=== PATIENT | male | born 1935 | race Caucasian/White ===

== ENCOUNTER → 2017-10-10 | Outpatient (REF) | payer MEDICARE, SELFPAY | LOC: LAB 09:08 | PROVIDERS: PCP Nurse Practitioner Family; Visit Provider Nurse Practitioner Family | DX: R19.7 Diarrhea, unspecified (principal); R53.83 Other fatigue; E53.8 Deficiency of other specified B group vitamins | CPT/HCPCS: 36415; 80048; 82306; 82607; 85025 ==

== ENCOUNTER → 2017-10-24 | Outpatient (REF) | payer MEDICARE, SELFPAY | LOC: LAB 08:00 | PROVIDERS: PCP Nurse Practitioner Family; Visit Provider Nurse Practitioner Family | DX: K62.5 Hemorrhage of anus and rectum (principal) | CPT/HCPCS: 36415; 80048; 85025; 85651; 86140 ==

== ENCOUNTER 2017-12-14 09:02 | Emergency (ER) | payer MEDICARE, SELFPAY ==
[2017-12-14 09:10] VITALS: BP 149/81; PULSE 95; RESP 20; TEMP 36.9; O2SAT 99
--- NOTE | 2017-12-14 09:15 | ED.HEATRA ---
HPI - Head Injury General Chief complaint: Head Injury Stated complaint: GLF Time Seen by Provider: 12/14/17 09:05 Source: patient and EMS Mode of arrival: EMS Limitations: no limitations History of Present Illness HPI Narrative: Patient is an 82-year-old male presenting with all multiple falls and weakness. He says he did not fall today, [place] says that he did fall today. He has no complaints and no injuries, except for a small abrasion on his left temporal area. No ecchymosis no swelling no laceration. He admits falling a lot yesterday, but has no complaints. He says he just loses his balance. He denies any chest pain shortness of breath dizziness lightheadedness MD Complaint: fall Related Data Home Medications Medication Instructions Recorded Confirmed Lactobacillus acidophilus 2 cap PO BID 12/14/17 12/14/17 [Acidophilus] acetaminophen 2 tab PO Q4H PRN 12/14/17 12/14/17 acetaminophen 500 mg PO QID 12/14/17 12/14/17 ascorbic acid (vitamin C) [Vitamin 500 mg PO BID 12/14/17 12/14/17 C] aspirin 81 mg PO DAILY 12/14/17 12/14/17 cholecalciferol (vitamin D3) 1 tab PO DAILY 12/14/17 12/14/17 [Vitamin D3] cyanocobalamin (vitamin B-12) 1 tab PO DAILY 12/14/17 12/14/17 [Vitamin B-12] diclofenac sodium 1 applic TOPICAL TID 12/14/17 12/14/17 hydrocodone-acetaminophen 0.5 tab PO QAM 12/14/17 12/14/17 loperamide 2 mg PO Q6H PRN 12/14/17 12/14/17 mesalamine 2 tab PO DAILY 12/14/17 12/14/17 metoprolol tartrate 1 tab PO BID 12/14/17 12/14/17 multivitamin 1 tab PO DAILY 12/14/17 12/14/17 ondansetron 4 mg PO Q4H PRN 12/14/17 12/14/17 psyllium seed (sugar) [Reguloid] 1 scoop/day PO DAILY 12/14/17 12/14/17 sertraline 25 mg PO DAILY 12/14/17 12/14/17 sodium chloride [Saline Mist] 1 spray INTRANASAL QID 12/14/17 12/14/17 tamsulosin 0.4 mg PO DAILY 12/14/17 12/14/17 tramadol 50 - 100 mg PO Q6H PRN 12/14/17 12/14/17 Review of Systems Review of Systems All systems reviewed & are unremarkable except as noted in HPI and below Constitutional Reports as per HPI, Reports frequent falls and Denies headache(s) ENT Ears, Nose, Mouth, and Throat: Denies dysphagia and Denies headache(s) Cardiovascular Denies chest pain, Denies chest pain with activity, Denies edema and Denies dyspnea Respiratory Denies cough, Denies dyspnea and Denies stridor Gastrointestinal Gastrointestinal: Denies dysphagia, Denies diarrhea, Denies nausea and Denies vomiting Musculoskeletal Reports system reviewed and no additional complaints, except as docu, Denies back pain and Denies myalgias Neurologic Reports frequent falls and Denies headache(s) PFSH Medical History CHF (congestive heart failure) (Acute) Colon cancer (Acute) Coronary artery disease (Acute) Hyperlipidemia (Acute) Hypertension (Acute) Polymyalgia rheumatica (Acute) Surgical History History of colon resection (Acute) Social History Smoking Status: Former smoker Exam Initial Vital Signs Initial Vital Signs: Vital Signs Temperature 98.4 F 12/14/17 09:10 Pulse Rate 95 H 12/14/17 09:10 Respiratory Rate 20 12/14/17 09:10 Blood Pressure 149/81 H 12/14/17 09:10 Pulse Oximetry 99 12/14/17 09:10 Const General: cooperative and frail appearing [facility] Head: normal to inspection and normocephalic Nose: external nose normal Face and sinus: normal facial exam Neck Neck: normal visual inspection, trachea midline, No lymphadenopathy, No midline deformity and No JVD Lymphatic: No lymphedema Resp Effort & Inspection: normal respiratory effort, able to speak in complete sentences, no respiratory distress and no use of accessory muscles Auscultation: clear to auscultation bilaterally, no rales, no rhonchi and no wheezes Cardio Rate: regular rate Rhythm: regular rhythm Heart Sounds: no click, no gallops, no murmurs and no rubs Pulses: normal peripheral pulses GI Inspection: non-distended Palpation: soft, no hepatosplenomegaly, No guarding, No pulsatile mass and No tender Auscultation: normal bowel sounds Skin General: no rashes or lesions noted, No jaundice and No petechiae Neuro General: alert and awake Cranial Nerves: CN's II-XI intact bilaterally Speech: speech normal Motor: muscle tone normal throughout Extrem General: full ROM, no clubbing, cyanosis or edema, no pedal edema and no calf tenderness Course Orders Ordered: ED Orders 12/14/17 09:17 CT head/brain wo con Stat 12/14/17 09:19 EKG-12 Lead Stat 12/14/17 09:30 Complete Blood Count AUTO DIFF Stat Comprehensive Metabolic Panel Stat Lactate (Lactic Acid) Stat Partial Thromboplastin Time Stat Prothrombin Time INR Stat Vital Signs - 8 hr 12/14/17 09:10 12/14/17 10:56 12/14/17 11:17 Temperature 98.4 F Pulse Rate 95 H 102 H Respiratory Rate 20 14 18 Blood Pressure 149/81 H Blood Pressure [Right Arm] 152/97 H Pulse Oximetry 99 100 96 MDM - Head Injury Lab Data Attestation: I reviewed the patient's lab results. Result diagrams: 12/14/17 09:30 12/14/17 09:30 Lab Results 12/14/17 12/14/17 12/14/17 Range/Units 09:30 09:30 09:30 WBC 13.9 H (4.5-11.0) X10^3/uL RBC 4.10 L (4.5-5.9) X10^6/uL Hgb 12.8 L (13.5-17.5) g/dL Hct 38.5 L (41-53) % MCV 93.9 (80-100) fL MCH 31.3 (26-34) PG MCHC 33.3 (30-36) % RDW 15.0 H (11.6-14.8) % Plt Count 348 (150-400) X10^3/uL Neut % (Auto) 74.4 (50-75) % Lymph % (Auto) 10.1 L (25-40) % [place] % (Auto) 12.2 (3-14) % Eos % (Auto) 2.9 (2-4) % Baso % (Auto) 0.4 (0-2) % Neut # (Auto) 72417 H (2806-8879) /uL PT 12.0 (10.1-12.7) SECONDS INR 1.1 (0.9-1.3) APTT 32 (26.4-36.2) SECONDS Sodium 143 (137-145) mmol/L Potassium 4.1 (3.4-5.1) mmol/L Chloride 106 (98-107) mmol/L Carbon Dioxide 26 (22-32) mmol/L BUN 17 (9-20) mg/dL Creatinine 0.70 (0.66-1.25) mg/dL Estimated GFR > 60.0 (>60) mL/min BUN/Creatinine Ratio 24.3 H (6-22) Glucose 97 (80-110) mg/dL Lactate (0.7-2.1) mmol/L Calcium 8.5 (8.4-10.2) mg/dL Total Bilirubin 0.5 (0.2-1.3) mg/dL AST 14 L (17-59) IU/L ALT 27 (21-72) IU/L Alkaline Phosphatase 115 (38-126) U/L Total Protein 6.2 L (6.3-8.2) g/dL Albumin 2.9 L (3.5-5.0) g/dL Globulin 3.3 (1.7-4.1) g/dL Albumin/Globulin Ratio 0.9 L (1.0-2.8) /15/18 Range/Units 09:30 WBC (4.5-11.0) X10^3/uL RBC (4.5-5.9) X10^6/uL Hgb (13.5-17.5) g/dL Hct (41-53) % MCV (80-100) fL MCH (26-34) PG MCHC (30-36) % RDW (11.6-14.8) % Plt Count (150-400) X10^3/uL Neut % (Auto) (50-75) % Lymph % (Auto) (25-40) % [place] % (Auto) (3-14) % Eos % (Auto) (2-4) % Baso % (Auto) (0-2) % Neut # (Auto) (6888-8080) /uL PT (10.1-12.7) SECONDS INR (0.9-1.3) APTT (26.4-36.2) SECONDS Sodium (137-145) mmol/L Potassium (3.4-5.1) mmol/L Chloride (98-107) mmol/L Carbon Dioxide (22-32) mmol/L BUN (9-20) mg/dL Creatinine (0.66-1.25) mg/dL Estimated GFR (>60) mL/min BUN/Creatinine Ratio (6-22) Glucose (80-110) mg/dL Lactate 1.2 (0.7-2.1) mmol/L Calcium (8.4-10.2) mg/dL Total Bilirubin (0.2-1.3) mg/dL AST (17-59) IU/L ALT (21-72) IU/L Alkaline Phosphatase (38-126) U/L Total Protein (6.3-8.2) g/dL Albumin (3.5-5.0) g/dL Globulin (1.7-4.1) g/dL Albumin/Globulin Ratio (1.0-2.8) ECG Data Attestation: I personally reviewed and interpreted this ECG as follows: Prior ECG tracings: available for review MDM Narrative Medical decision making narrative: Patient is ambulatory without any difficulty. No abnormalities with blood work he does have mild leukocytosis but no obvious infection or sinus symptoms of infection. Lab Data Lab results reviewed: Yes I reviewed the patient's lab results. Result diagrams: 12/14/17 09:30 12/14/17 09:30 Lab Results 12/14/17 12/14/17 12/14/17 Range/Units 09:30 09:30 09:30 WBC 13.9 H (4.5-11.0) X10^3/uL RBC 4.10 L (4.5-5.9) X10^6/uL Hgb 12.8 L (13.5-17.5) g/dL Hct 38.5 L (41-53) % MCV 93.9 (80-100) fL MCH 31.3 (26-34) PG MCHC 33.3 (30-36) % RDW 15.0 H (11.6-14.8) % Plt Count 348 (150-400) X10^3/uL Neut % (Auto) 74.4 (50-75) % Lymph % (Auto) 10.1 L (25-40) % [place] % (Auto) 12.2 (3-14) % Eos % (Auto) 2.9 (2-4) % Baso % (Auto) 0.4 (0-2) % Neut # (Auto) 30380 H (4783-9404) /uL PT 12.0 (10.1-12.7) SECONDS INR 1.1 (0.9-1.3) APTT 32 (26.4-36.2) SECONDS Sodium 143 (137-145) mmol/L Potassium 4.1 (3.4-5.1) mmol/L Chloride 106 (98-107) mmol/L Carbon Dioxide 26 (22-32) mmol/L BUN 17 (9-20) mg/dL Creatinine 0.70 (0.66-1.25) mg/dL Estimated GFR > 60.0 (>60) mL/min BUN/Creatinine Ratio 24.3 H (6-22) Glucose 97 (80-110) mg/dL Lactate (0.7-2.1) mmol/L Calcium 8.5 (8.4-10.2) mg/dL Total Bilirubin 0.5 (0.2-1.3) mg/dL AST 14 L (17-59) IU/L ALT 27 (21-72) IU/L Alkaline Phosphatase 115 (38-126) U/L Total Protein 6.2 L (6.3-8.2) g/dL Albumin 2.9 L (3.5-5.0) g/dL Globulin 3.3 (1.7-4.1) g/dL Albumin/Globulin Ratio 0.9 L (1.0-2.8) //18 Range/Units 09:30 WBC (4.5-11.0) X10^3/uL RBC (4.5-5.9) X10^6/uL Hgb (13.5-17.5) g/dL Hct (41-53) % MCV (80-100) fL MCH (26-34) PG MCHC (30-36) % RDW (11.6-14.8) % Plt Count (150-400) X10^3/uL Neut % (Auto) (50-75) % Lymph % (Auto) (25-40) % [place] % (Auto) (3-14) % Eos % (Auto) (2-4) % Baso % (Auto) (0-2) % Neut # (Auto) (5579-0027) /uL PT (10.1-12.7) SECONDS INR (0.9-1.3) APTT (26.4-36.2) SECONDS Sodium (137-145) mmol/L Potassium (3.4-5.1) mmol/L Chloride (98-107) mmol/L Carbon Dioxide (22-32) mmol/L BUN (9-20) mg/dL Creatinine (0.66-1.25) mg/dL Estimated GFR (>60) mL/min BUN/Creatinine Ratio (6-22) Glucose (80-110) mg/dL Lactate 1.2 (0.7-2.1) mmol/L Calcium (8.4-10.2) mg/dL Total Bilirubin (0.2-1.3) mg/dL AST (17-59) IU/L ALT (21-72) IU/L Alkaline Phosphatase (38-126) U/L Total Protein (6.3-8.2) g/dL Albumin (3.5-5.0) g/dL Globulin (1.7-4.1) g/dL Albumin/Globulin Ratio (1.0-2.8) Imaging Data CT scan - head: Radiologist's impression: PROCEDURE: CT HEAD/BRAIN WO CON INDICATIONS: 82 year-old male with multiple falls. TECHNIQUE: Noncontrast 4.5 mm thick angled axial sections acquired from the foramen magnum to the vertex, with coronal and sagittal reformats. For radiation dose reduction, the following was used: automated exposure control, adjustment of mA and/or kV according to patient size. COMPARISON: [facility], CT, HEAD WITHOUT CONTRAST, 09/04/2013, 15:54. FINDINGS: Image quality: Excellent. CSF spaces: Basal cisterns are patent. No extra-axial fluid collections. The ventricles are symmetric in size and shape. Brain: No intracranial bleeds or masses. There is mild cerebral volume loss for age, with resultant ventricular and sulcal prominence. There are minimal periventricular and deep white matter chronic small vessel ischemic changes. 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 There is intracranial internal carotid and bilateral vertebral artery atherosclerosis. Skull and face: Calvarium and visualized facial bones appear intact, without suspicious lesions. Sinuses: Visualized sinuses and mastoids are clear. IMPRESSION: No acute intracranial abnormalities after fall. 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 Dictated by: Santos Armstrong M.D. on 12/14/2017 at 9:36 ECG Data Attestation: I personally reviewed and interpreted this ECG as follows: Prior ECG tracings: available for review Interpretation: Discharge Plan Departure Patient Disposition: Home, Self-Care Clinical Impression: Feared complaint without diagnosis Discharge Date/Time: 12/14/17 11:45 Interventions: ED Discharge Assessment Last Done: 12/14/17 11:37 Instructions: How to Prevent Falls Activity Restrictions/Additional Instructions: *You have been diagnosed with no problems are found *What to do: No infection, CT scan and blood work within normal limits no sign of trauma USE A WALKER AT ALL TIMES *Continue to take medications as directed *Follow up with your primary care provider in 2-3 days *Return to ER if you should have any new, worsening or concerning symptoms Prescriptions: No Action multivitamin Tablet 1 tab PO DAILY RF: 0 acetaminophen 325 mg Tablet 2 tab PO Q4H PRN (Reason: Pain, Mild) RF: 0 loperamide 2 mg Capsule 2 mg PO Q6H PRN (Reason: Diarrhea) RF: 0 hydrocodone-acetaminophen 5-325 mg tablet 0.5 tab PO QAM RF: 0 cyanocobalamin (vitamin B-12) [Vitamin B-12] 1,000 mcg Tablet 1 tab PO DAILY RF: 0 aspirin 81 mg Tablet,Delayed Release (Dr/Ec) 81 mg PO DAILY RF: 0 tramadol 50 mg Tablet 50 - 100 mg PO Q6H PRN (Reason: Back Pain) RF: 0 acetaminophen 500 mg Tablet 500 mg PO QID RF: 0 ascorbic acid (vitamin C) [Vitamin C] 500 mg Tablet 500 mg PO BID RF: 0 tamsulosin 0.4 mg capsule,extended release 24hr 0.4 mg PO DAILY RF: 0 metoprolol tartrate 50 mg tablet 1 tab PO BID RF: 0 sertraline 25 mg tablet 25 mg PO DAILY RF: 0 Lactobacillus acidophilus [Acidophilus] Capsule 2 cap PO BID RF: 0 ondansetron 4 mg Tablet,Disintegrating 4 mg PO Q4H PRN (Reason: Nausea) RF: 0 sodium chloride [Saline Mist] 0.65 % Aerosol,[place] 1 spray Intranasal QID RF: 0 psyllium seed (sugar) [Reguloid] Powder 1 scoop/day PO DAILY RF: 0 cholecalciferol (vitamin D3) [Vitamin D3] 1,000 unit Tablet 1 tab PO DAILY RF: 0 mesalamine 1.2 gram tablet,delayed release (DR/EC) 2 tab PO DAILY RF: 0 diclofenac sodium 1 % gel 1 applic Topical TID RF: 0 Referrals: Rolanda Aparicio ARNP [Primary Care Provider] -
--- NOTE | 2017-12-14 09:18 | ED_ITS ---
HPI - Head Injury General Chief complaint: Head Injury Stated complaint: GLF Time Seen by Provider: 12/14/17 09:05 Source: patient and EMS Mode of arrival: EMS Limitations: no limitations History of Present Illness HPI Narrative: Patient is an 82-year-old male presenting with all multiple falls and weakness. He says he did not fall today, [place] says that he did fall today. He has no complaints and no injuries, except for a small abrasion on his left temporal area. No ecchymosis no swelling no laceration. He admits falling a lot yesterday, but has no complaints. He says he just loses his balance. He denies any chest pain shortness of breath dizziness lightheadedness MD Complaint: fall Related Data Home Medications Medication Instructions Recorded Confirmed Lactobacillus acidophilus 2 cap PO BID 12/14/17 12/14/17 [Acidophilus] acetaminophen 2 tab PO Q4H PRN 12/14/17 12/14/17 acetaminophen 500 mg PO QID 12/14/17 12/14/17 ascorbic acid (vitamin C) [Vitamin 500 mg PO BID 12/14/17 12/14/17 C] aspirin 81 mg PO DAILY 12/14/17 12/14/17 cholecalciferol (vitamin D3) 1 tab PO DAILY 12/14/17 12/14/17 [Vitamin D3] cyanocobalamin (vitamin B-12) 1 tab PO DAILY 12/14/17 12/14/17 [Vitamin B-12] diclofenac sodium 1 applic TOPICAL TID 12/14/17 12/14/17 hydrocodone-acetaminophen 0.5 tab PO QAM 12/14/17 12/14/17 loperamide 2 mg PO Q6H PRN 12/14/17 12/14/17 mesalamine 2 tab PO DAILY 12/14/17 12/14/17 metoprolol tartrate 1 tab PO BID 12/14/17 12/14/17 multivitamin 1 tab PO DAILY 12/14/17 12/14/17 ondansetron 4 mg PO Q4H PRN 12/14/17 12/14/17 psyllium seed (sugar) [Reguloid] 1 scoop/day PO DAILY 12/14/17 12/14/17 sertraline 25 mg PO DAILY 12/14/17 12/14/17 sodium chloride [Saline Mist] 1 spray INTRANASAL QID 12/14/17 12/14/17 tamsulosin 0.4 mg PO DAILY 12/14/17 12/14/17 tramadol 50 - 100 mg PO Q6H PRN 12/14/17 12/14/17 Review of Systems Review of Systems All systems reviewed & are unremarkable except as noted in HPI and below Constitutional Reports as per HPI, Reports frequent falls and Denies headache(s) ENT Ears, Nose, Mouth, and Throat: Denies dysphagia and Denies headache(s) Cardiovascular Denies chest pain, Denies chest pain with activity, Denies edema and Denies dyspnea Respiratory Denies cough, Denies dyspnea and Denies stridor Gastrointestinal Gastrointestinal: Denies dysphagia, Denies diarrhea, Denies nausea and Denies vomiting Musculoskeletal Reports system reviewed and no additional complaints, except as docu, Denies back pain and Denies myalgias Neurologic Reports frequent falls and Denies headache(s) PFSH Medical History CHF (congestive heart failure) (Acute) Colon cancer (Acute) Coronary artery disease (Acute) Hyperlipidemia (Acute) Hypertension (Acute) Polymyalgia rheumatica (Acute) Surgical History History of colon resection (Acute) Social History Smoking Status: Former smoker Exam Initial Vital Signs Initial Vital Signs: Vital Signs Temperature 98.4 F 12/14/17 09:10 Pulse Rate 95 H 12/14/17 09:10 Respiratory Rate 20 12/14/17 09:10 Blood Pressure 149/81 H 12/14/17 09:10 Pulse Oximetry 99 12/14/17 09:10 Const General: cooperative and frail appearing [facility] Head: normal to inspection and normocephalic Nose: external nose normal Face and sinus: normal facial exam Neck Neck: normal visual inspection, trachea midline, No lymphadenopathy, No midline deformity and No JVD Lymphatic: No lymphedema Resp Effort & Inspection: normal respiratory effort, able to speak in complete sentences, no respiratory distress and no use of accessory muscles Auscultation: clear to auscultation bilaterally, no rales, no rhonchi and no wheezes Cardio Rate: regular rate Rhythm: regular rhythm Heart Sounds: no click, no gallops, no murmurs and no rubs Pulses: normal peripheral pulses GI Inspection: non-distended Palpation: soft, no hepatosplenomegaly, No guarding, No pulsatile mass and No tender Auscultation: normal bowel sounds Skin General: no rashes or lesions noted, No jaundice and No petechiae Neuro General: alert and awake Cranial Nerves: CN's II-XI intact bilaterally Speech: speech normal Motor: muscle tone normal throughout Extrem General: full ROM, no clubbing, cyanosis or edema, no pedal edema and no calf tenderness Course Orders Ordered: ED Orders 12/14/17 09:17 CT head/brain wo con Stat 12/14/17 09:19 EKG-12 Lead Stat 12/14/17 09:30 Complete Blood Count AUTO DIFF Stat Comprehensive Metabolic Panel Stat Lactate (Lactic Acid) Stat Partial Thromboplastin Time Stat Prothrombin Time INR Stat Vital Signs - 8 hr 12/14/17 09:10 12/14/17 10:56 12/14/17 11:17 Temperature 98.4 F Pulse Rate 95 H 102 H Respiratory Rate 20 14 18 Blood Pressure 149/81 H Blood Pressure [Right Arm] 152/97 H Pulse Oximetry 99 100 96 MDM - Head Injury Lab Data Attestation: I reviewed the patient's lab results. Result diagrams: 12/14/17 09:30 12/14/17 09:30 Lab Results 12/14/17 12/14/17 12/14/17 Range/Units 09:30 09:30 09:30 WBC 13.9 H (4.5-11.0) X10^3/uL RBC 4.10 L (4.5-5.9) X10^6/uL Hgb 12.8 L (13.5-17.5) g/dL Hct 38.5 L (41-53) % MCV 93.9 (80-100) fL MCH 31.3 (26-34) PG MCHC 33.3 (30-36) % RDW 15.0 H (11.6-14.8) % Plt Count 348 (150-400) X10^3/uL Neut % (Auto) 74.4 (50-75) % Lymph % (Auto) 10.1 L (25-40) % [place] % (Auto) 12.2 (3-14) % Eos % (Auto) 2.9 (2-4) % Baso % (Auto) 0.4 (0-2) % Neut # (Auto) 38302 H (5708-0827) /uL PT 12.0 (10.1-12.7) SECONDS INR 1.1 (0.9-1.3) APTT 32 (26.4-36.2) SECONDS Sodium 143 (137-145) mmol/L Potassium 4.1 (3.4-5.1) mmol/L Chloride 106 (98-107) mmol/L Carbon Dioxide 26 (22-32) mmol/L BUN 17 (9-20) mg/dL Creatinine 0.70 (0.66-1.25) mg/dL Estimated GFR > 60.0 (>60) mL/min BUN/Creatinine Ratio 24.3 H (6-22) Glucose 97 (80-110) mg/dL Lactate (0.7-2.1) mmol/L Calcium 8.5 (8.4-10.2) mg/dL Total Bilirubin 0.5 (0.2-1.3) mg/dL AST 14 L (17-59) IU/L ALT 27 (21-72) IU/L Alkaline Phosphatase 115 (38-126) U/L Total Protein 6.2 L (6.3-8.2) g/dL Albumin 2.9 L (3.5-5.0) g/dL Globulin 3.3 (1.7-4.1) g/dL Albumin/Globulin Ratio 0.9 L (1.0-2.8) /15/18 Range/Units 09:30 WBC (4.5-11.0) X10^3/uL RBC (4.5-5.9) X10^6/uL Hgb (13.5-17.5) g/dL Hct (41-53) % MCV (80-100) fL MCH (26-34) PG MCHC (30-36) % RDW (11.6-14.8) % Plt Count (150-400) X10^3/uL Neut % (Auto) (50-75) % Lymph % (Auto) (25-40) % [place] % (Auto) (3-14) % Eos % (Auto) (2-4) % Baso % (Auto) (0-2) % Neut # (Auto) (2632-3726) /uL PT (10.1-12.7) SECONDS INR (0.9-1.3) APTT (26.4-36.2) SECONDS Sodium (137-145) mmol/L Potassium (3.4-5.1) mmol/L Chloride (98-107) mmol/L Carbon Dioxide (22-32) mmol/L BUN (9-20) mg/dL Creatinine (0.66-1.25) mg/dL Estimated GFR (>60) mL/min BUN/Creatinine Ratio (6-22) Glucose (80-110) mg/dL Lactate 1.2 (0.7-2.1) mmol/L Calcium (8.4-10.2) mg/dL Total Bilirubin (0.2-1.3) mg/dL AST (17-59) IU/L ALT (21-72) IU/L Alkaline Phosphatase (38-126) U/L Total Protein (6.3-8.2) g/dL Albumin (3.5-5.0) g/dL Globulin (1.7-4.1) g/dL Albumin/Globulin Ratio (1.0-2.8) ECG Data Attestation: I personally reviewed and interpreted this ECG as follows: Prior ECG tracings: available for review MDM Narrative Medical decision making narrative: Patient is ambulatory without any difficulty. No abnormalities with blood work he does have mild leukocytosis but no obvious infection or sinus symptoms of infection. Lab Data Lab results reviewed: Yes I reviewed the patient's lab results. Result diagrams: 12/14/17 09:30 12/14/17 09:30 Lab Results 12/14/17 12/14/17 12/14/17 Range/Units 09:30 09:30 09:30 WBC 13.9 H (4.5-11.0) X10^3/uL RBC 4.10 L (4.5-5.9) X10^6/uL Hgb 12.8 L (13.5-17.5) g/dL Hct 38.5 L (41-53) % MCV 93.9 (80-100) fL MCH 31.3 (26-34) PG MCHC 33.3 (30-36) % RDW 15.0 H (11.6-14.8) % Plt Count 348 (150-400) X10^3/uL Neut % (Auto) 74.4 (50-75) % Lymph % (Auto) 10.1 L (25-40) % [place] % (Auto) 12.2 (3-14) % Eos % (Auto) 2.9 (2-4) % Baso % (Auto) 0.4 (0-2) % Neut # (Auto) 34165 H (0479-5674) /uL PT 12.0 (10.1-12.7) SECONDS INR 1.1 (0.9-1.3) APTT 32 (26.4-36.2) SECONDS Sodium 143 (137-145) mmol/L Potassium 4.1 (3.4-5.1) mmol/L Chloride 106 (98-107) mmol/L Carbon Dioxide 26 (22-32) mmol/L BUN 17 (9-20) mg/dL Creatinine 0.70 (0.66-1.25) mg/dL Estimated GFR > 60.0 (>60) mL/min BUN/Creatinine Ratio 24.3 H (6-22) Glucose 97 (80-110) mg/dL Lactate (0.7-2.1) mmol/L Calcium 8.5 (8.4-10.2) mg/dL Total Bilirubin 0.5 (0.2-1.3) mg/dL AST 14 L (17-59) IU/L ALT 27 (21-72) IU/L Alkaline Phosphatase 115 (38-126) U/L Total Protein 6.2 L (6.3-8.2) g/dL Albumin 2.9 L (3.5-5.0) g/dL Globulin 3.3 (1.7-4.1) g/dL Albumin/Globulin Ratio 0.9 L (1.0-2.8) //18 Range/Units 09:30 WBC (4.5-11.0) X10^3/uL RBC (4.5-5.9) X10^6/uL Hgb (13.5-17.5) g/dL Hct (41-53) % MCV (80-100) fL MCH (26-34) PG MCHC (30-36) % RDW (11.6-14.8) % Plt Count (150-400) X10^3/uL Neut % (Auto) (50-75) % Lymph % (Auto) (25-40) % [place] % (Auto) (3-14) % Eos % (Auto) (2-4) % Baso % (Auto) (0-2) % Neut # (Auto) (3607-7557) /uL PT (10.1-12.7) SECONDS INR (0.9-1.3) APTT (26.4-36.2) SECONDS Sodium (137-145) mmol/L Potassium (3.4-5.1) mmol/L Chloride (98-107) mmol/L Carbon Dioxide (22-32) mmol/L BUN (9-20) mg/dL Creatinine (0.66-1.25) mg/dL Estimated GFR (>60) mL/min BUN/Creatinine Ratio (6-22) Glucose (80-110) mg/dL Lactate 1.2 (0.7-2.1) mmol/L Calcium (8.4-10.2) mg/dL Total Bilirubin (0.2-1.3) mg/dL AST (17-59) IU/L ALT (21-72) IU/L Alkaline Phosphatase (38-126) U/L Total Protein (6.3-8.2) g/dL Albumin (3.5-5.0) g/dL Globulin (1.7-4.1) g/dL Albumin/Globulin Ratio (1.0-2.8) Imaging Data CT scan - head: Radiologist's impression: PROCEDURE: CT HEAD/BRAIN WO CON INDICATIONS: 82 year-old male with multiple falls. TECHNIQUE: Noncontrast 4.5 mm thick angled axial sections acquired from the foramen magnum to the vertex, with coronal and sagittal reformats. For radiation dose reduction, the following was used: automated exposure control, adjustment of mA and/or kV according to patient size. COMPARISON: [facility], CT, HEAD WITHOUT CONTRAST, 09/04/2013, 15:54. FINDINGS: Image quality: Excellent. CSF spaces: Basal cisterns are patent. No extra-axial fluid collections. The ventricles are symmetric in size and shape. Brain: No intracranial bleeds or masses. There is mild cerebral volume loss for age, with resultant ventricular and sulcal prominence. There are minimal periventricular and deep white matter chronic small vessel ischemic changes. 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 There is intracranial internal carotid and bilateral vertebral artery atherosclerosis. Skull and face: Calvarium and visualized facial bones appear intact, without suspicious lesions. Sinuses: Visualized sinuses and mastoids are clear. IMPRESSION: No acute intracranial abnormalities after fall. 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 Dictated by: Santos Armstrong M.D. on 12/14/2017 at 9:36 ECG Data Attestation: I personally reviewed and interpreted this ECG as follows: Prior ECG tracings: available for review Interpretation: Discharge Plan Departure Patient Disposition: Home, Self-Care Clinical Impression: Feared complaint without diagnosis Discharge Date/Time: 12/14/17 11:45 Interventions: ED Discharge Assessment Last Done: 12/14/17 11:37 Instructions: How to Prevent Falls Activity Restrictions/Additional Instructions: *You have been diagnosed with no problems are found *What to do: No infection, CT scan and blood work within normal limits no sign of trauma USE A WALKER AT ALL TIMES *Continue to take medications as directed *Follow up with your primary care provider in 2-3 days *Return to ER if you should have any new, worsening or concerning symptoms Prescriptions: No Action multivitamin Tablet 1 tab PO DAILY RF: 0 acetaminophen 325 mg Tablet 2 tab PO Q4H PRN (Reason: Pain, Mild) RF: 0 loperamide 2 mg Capsule 2 mg PO Q6H PRN (Reason: Diarrhea) RF: 0 hydrocodone-acetaminophen 5-325 mg tablet 0.5 tab PO QAM RF: 0 cyanocobalamin (vitamin B-12) [Vitamin B-12] 1,000 mcg Tablet 1 tab PO DAILY RF: 0 aspirin 81 mg Tablet,Delayed Release (Dr/Ec) 81 mg PO DAILY RF: 0 tramadol 50 mg Tablet 50 - 100 mg PO Q6H PRN (Reason: Back Pain) RF: 0 acetaminophen 500 mg Tablet 500 mg PO QID RF: 0 ascorbic acid (vitamin C) [Vitamin C] 500 mg Tablet 500 mg PO BID RF: 0 tamsulosin 0.4 mg capsule,extended release 24hr 0.4 mg PO DAILY RF: 0 metoprolol tartrate 50 mg tablet 1 tab PO BID RF: 0 sertraline 25 mg tablet 25 mg PO DAILY RF: 0 Lactobacillus acidophilus [Acidophilus] Capsule 2 cap PO BID RF: 0 ondansetron 4 mg Tablet,Disintegrating 4 mg PO Q4H PRN (Reason: Nausea) RF: 0 sodium chloride [Saline Mist] 0.65 % Aerosol,[place] 1 spray Intranasal QID RF: 0 psyllium seed (sugar) [Reguloid] Powder 1 scoop/day PO DAILY RF: 0 cholecalciferol (vitamin D3) [Vitamin D3] 1,000 unit Tablet 1 tab PO DAILY RF: 0 mesalamine 1.2 gram tablet,delayed release (DR/EC) 2 tab PO DAILY RF: 0 diclofenac sodium 1 % gel 1 applic Topical TID RF: 0 Referrals: Rolanda Aparicio ARNP [Primary Care Provider] -
[2017-12-14 09:43] LABS: Add Manual Diff / Slide Review NO; Basophils Percent Auto 0.4 % (0-2); Eosinophils Percent Auto 2.9 % (2-4); Hematocrit 38.5 % (41-53); Hemoglobin 12.8 g/dL (13.5-17.5); Lymphocytes Percent Auto 10.1 % (25-40); Mean Corpuscular HGB Conc 33.3 % (30-36); Mean Corpuscular Hemoglobin 31.3 PG (26-34); Mean Corpuscular Volume 93.9 fL (80-100); Monocytes Percent Auto 12.2 % (3-14); Neutrophils Absolute Auto 10400 /uL (3000-5900); Neutrophils Percent Auto 74.4 % (50-75); Platelet Count 348 X10^3/uL (150-400); White Blood Cell Count 13.9 X10^3/uL (4.5-11.0)
[2017-12-14 09:47] LABS: INR 1.1 (0.9-1.3)
[2017-12-14 09:49] LABS: Lactate (Lactic Acid) 1.2 mmol/L (0.7-2.1); PTT Partial Thromboplastin Tim 32 SECONDS (26.4-36.2)
[2017-12-14 09:51] LABS: Alanine Aminotransferase 27 IU/L (21-72); Albumin 2.9 g/dL (3.5-5.0); Albumin Globulin Ratio 0.9 (1.0-2.8); Alkaline Phosphatase 115 U/L (38-126); Aspartate Aminotransferase 14 IU/L (17-59); BUN Creatinine Ratio 24.3 (6-22); Bilirubin Total 0.5 mg/dL (0.2-1.3); Blood Urea Nitrogen 17 mg/dL (9-20); Calcium 8.5 mg/dL (8.4-10.2); Carbon Dioxide 26 mmol/L (22-32); Chloride 106 mmol/L (98-107); Estimated Glomerular Filt Rate > 60.0 mL/min (>60); Globulin 3.3 g/dL (1.7-4.1); Glucose 97 mg/dL (80-110); HEMOLYSIS < 15 (0-50); Potassium 4.1 mmol/L (3.4-5.1); Sodium 143 mmol/L (137-145); Total Protein 6.2 g/dL (6.3-8.2)
[2017-12-14 10:56] VITALS: BP 152/97; PULSE 102; RESP 14; O2SAT 100
[2017-12-14 11:17] VITALS: RESP 18; O2SAT 96
== END 2017-12-14 11:45 | disposition home or self-care (01) ==
PROVIDERS: Emergency Provider Emergency Medicine; PCP Nurse Practitioner Family
DX: Z71.1 Person with feared health complaint in whom no diagnosis is made (principal); W18.30XA Fall on same level, unspecified, initial encounter
CPT/HCPCS: 36415; 70450; 80053; 83605; 85025; 85610; 85730; 93005; 99282; 99285

== ENCOUNTER 2018-04-01 15:33 | Emergency (ER) | payer MEDICARE, SELFPAY ==
[2018-04-01 15:40] VITALS: BP 156/78; PULSE 84; RESP 20; TEMP 36.3; O2SAT 98
--- NOTE | 2018-04-01 15:54 | ED.MEDCLEAR ---
HPI - Medical Clearance <JAVIER Abdul - Last Filed: 04/01/18 17:32> General Chief complaint: Medical Clearance Stated complaint: thinks he had a stroke Time Seen by Provider: 04/01/18 15:54 Source: patient and other (caregiver) Mode of arrival: wheelchair Limitations: no limitations History of Present Illness HPI Narrative: sent here from residential facility to r/o stroke because staff was concerned about his facial droop, according to repair clerk and pt, facial droop is chronic and he has had it for years, denies any new s/s, pain, concerns or issues Reason for Medical Clearance: other (as per above) Place: other (residential) Traumatic Symptoms: denies traumatic injury Associated Symptoms: denies other symptoms Treatments Prior to Arrival: none Home Medications Medication Instructions Recorded Confirmed Lactobacillus acidophilus 2 cap PO BID 12/14/17 04/01/18 [Acidophilus] acetaminophen 2 tab PO Q4H PRN 12/14/17 04/01/18 acetaminophen 500 mg PO QID 12/14/17 04/01/18 ascorbic acid (vitamin C) [Vitamin 500 mg PO BID 12/14/17 04/01/18 C] aspirin 81 mg PO DAILY 12/14/17 04/01/18 cholecalciferol (vitamin D3) 1 tab PO DAILY 12/14/17 04/01/18 [Vitamin D3] cyanocobalamin (vitamin B-12) 1 tab PO DAILY 12/14/17 04/01/18 [Vitamin B-12] diclofenac sodium 1 applic TOPICAL TID 12/14/17 04/01/18 hydrocodone-acetaminophen 0.5 tab PO QAM 12/14/17 04/01/18 loperamide 2 mg PO Q6H PRN 12/14/17 04/01/18 mesalamine 2 tab PO DAILY 12/14/17 04/01/18 metoprolol tartrate 1 tab PO BID 12/14/17 04/01/18 multivitamin 1 tab PO DAILY 12/14/17 04/01/18 ondansetron 4 mg PO Q4H PRN 12/14/17 04/01/18 psyllium seed (sugar) [Reguloid] 1 scoop/day PO DAILY 12/14/17 04/01/18 sertraline 25 mg PO DAILY 12/14/17 04/01/18 sodium chloride [Saline Mist] 1 spray INTRANASAL QID 12/14/17 04/01/18 tamsulosin 0.4 mg PO DAILY 12/14/17 04/01/18 Allergies Allergy/AdvReac Type Severity Reaction Status Date / Time No Known Drug Allergies Allergy Verified 04/01/18 15:53 Review of Systems <JAVIER Abdul - Last Filed: 04/01/18 17:32> Review of Systems All systems reviewed & are unremarkable except as noted in HPI and below Constitutional Denies fatigue, Denies fever(s), Denies frequent falls, Denies headache(s), Denies lethargy, Denies malaise, Denies poor appetite and Denies weakness Eyes Reports system reviewed and no additional complaints, except as docu, Denies blurry vision, Denies change in vision, Denies loss of vision, Denies other visual disturbances and Denies eye pain ENT Ears, Nose, Mouth, and Throat: Denies vertigo, Denies dizziness, Denies otalgia, Denies facial pain, Denies headache(s) and Denies neck pain Cardiovascular Denies chest pain and Denies dyspnea Respiratory Denies dyspnea Gastrointestinal Gastrointestinal: Denies diarrhea and Denies vomiting Genitourinary Denies difficulty urinating Musculoskeletal Denies abnormal gait, Denies back pain, Denies myalgias, Denies muscle weakness, Denies neck pain and Denies numbness Neurologic Denies abnormal speech, Denies abnormal gait, Denies confusion, Denies vertigo, Denies dizziness, Denies frequent falls, Denies headache(s), Denies focal weakness, Denies loss of vision, Denies memory loss, Denies numbness, Denies other visual disturbances, Denies sensory deficit, Denies paresthesias and Denies weakness Psychiatric Denies confusion and Denies memory loss Endocrine Denies fatigue Exam <JAVIER Abdul - Last Filed: 04/01/18 17:32> Initial Vital Signs Initial Vital Signs: Vital Signs Temperature 97.3 F L 04/01/18 15:40 Pulse Rate 84 04/01/18 15:40 Respiratory Rate 20 04/01/18 15:40 Blood Pressure 156/78 H 04/01/18 15:40 Pulse Oximetry 98 04/01/18 15:40 Const General: cooperative, healthy appearing, comfortable, well developed and well groomed Nutritional Appearance: average body habitus Orientation: alert, awake and oriented x3 [facility] Head: normal to inspection and normocephalic Ears: hearing grossly normal bilaterally, external ears normal, TM's normal bilaterally and mastoids normal Nose: external nose normal, nares normal and septum normal Face and sinus: sinuses nontender, face asymmetric, laceration (R eyebrow area, 1cm closed with scab, no s/s of infection, no erythema, mild tenderness, mild swelling and contusion to that area) and other (facial droop noted on R side) Mouth: oral mucosae normal, lip normal, tongue normal, oropharynx normal, moist mucous membranes and No mouth trauma Teeth and gingiva: dentition normal and gingiva normal Throat: posterior oropharynx normal, tonsils normal and uvula midline Eyes General: appearance normal, both eyes and all related structures Visual River: normal visual river by confrontation Eyelids: eyelids normal Conjunctivae: conjunctivae normal Sclera: sclerae normal Pupils: PERRL EOM: EOM intact bilaterally Direct ophthalmoscopy: normal light reflex, no papilledema, fundi normal bilaterally and anterior chamber normal Neck Neck: normal visual inspection, full ROM, no meningeal signs, trachea midline, supple, No lymphadenopathy, No midline deformity, No tender and No tracheal deviation Chest Chest: normal inspection of the chest Resp Effort & Inspection: normal respiratory effort and able to speak in complete sentences Auscultation: clear to auscultation bilaterally Cardio Rate: regular rate Rhythm: regular rhythm Heart Sounds: S1 normal and S2 normal Back/Spine/Pelvis Back: normal to inspection and No back tenderness Cervical Spine: cervical ROM normal Thoracic/Lumbar Spine: thoracic and lumbar spine normal to inspection and thoraco-lumbar ROM normal Sacroiliac Joints: nontender Skin General: no rashes or lesions noted, elasticity normal, turgor normal and dry skin Neuro General: alert, awake, oriented x3 and meningeal signs present Cognition: normal cognition Speech: speech normal Gait: normal gait Motor: muscle tone normal throughout Sensory Exam: no sensory deficits noted Extrem General: normal to inspection and full ROM Psych Appearance: grossly normal and well kempt Mental Status: mental status grossly normal Speech and Movement: speech and movement normal Mood: congruent mood Affect: normal affect Attitude: cooperative Thought Process: normal Thought Content: normal Judgment: judgment good <Fannie Botnick, DO - Last Filed: 04/06/18 09:49> Initial Vital Signs Initial Vital Signs: Vital Signs Temperature 97.3 F L 04/01/18 15:40 Pulse Rate 84 04/01/18 15:40 Respiratory Rate 20 04/01/18 15:40 Blood Pressure 156/78 H 04/01/18 15:40 Pulse Oximetry 98 04/01/18 15:40 MDM - Medical Clearance <JAVIER Abdul - Last Filed: 04/01/18 17:32> Lab Data Result diagrams: 04/01/18 16:30 04/01/18 16:30 Lab Results 04/01/18 04/01/18 Range/Units 16:30 16:30 WBC 17.7 H (4.5-11.0) X10^3/uL RBC 4.14 L (4.5-5.9) X10^6/uL Hgb 12.9 L (13.5-17.5) g/dL Hct 38.9 L (41-53) % MCV 93.9 (80-100) fL MCH 31.1 (26-34) PG MCHC 33.2 (30-36) % RDW 15.4 H (11.6-14.8) % Plt Count 355 (150-400) X10^3/uL Neut % (Auto) 77.2 H (50-75) % Lymph % (Auto) 10.4 L (25-40) % [place] % (Auto) 10.7 (3-14) % Eos % (Auto) 0.9 L (2-4) % Baso % (Auto) 0.8 (0-2) % Neut # (Auto) 45211 H (9813-1921) /uL Sodium 141 (137-145) mmol/L Potassium 4.4 (3.4-5.1) mmol/L Chloride 107 (98-107) mmol/L Carbon Dioxide 26 (22-32) mmol/L BUN 19 (9-20) mg/dL Creatinine 0.80 (0.66-1.25) mg/dL Estimated GFR > 60.0 (>60) mL/min BUN/Creatinine Ratio 23.8 H (6-22) Glucose 104 (80-110) mg/dL Calcium 8.5 (8.4-10.2) mg/dL Total Bilirubin 0.3 (0.2-1.3) mg/dL AST 15 L (17-59) IU/L ALT 18 L (21-72) IU/L Alkaline Phosphatase 112 (38-126) U/L Total Protein 6.2 L (6.3-8.2) g/dL Albumin 3.1 L (3.5-5.0) g/dL Globulin 3.1 (1.7-4.1) g/dL Albumin/Globulin Ratio 1.0 (1.0-2.8) Imaging Data CT scan - head: Radiologist's impression: [address] [address] [address] Scan Report Signed Patient: Dameon Burt JMR#: [id number] : 7Acct:[id number] Age/Sex: 82 / MDate of Service: 04/01/18 Loc: ED Accession Number: [id number] Procedure: CT head/brain wo con Ordering Provider: Andie Mead PROCEDURE: CT HEAD/BRAIN WO CON INDICATIONS: r/o stroke, right arm weakness. TECHNIQUE: Noncontrast 4.5 mm thick angled axial sections acquired from the foramen magnum to the vertex, with coronal and sagittal reformats. For radiation dose reduction, the following was used: automated exposure control, adjustment of mA and/or kV according to patient size. COMPARISON: [facility], CT, CT HEAD/BRAIN WO CON, 12/14/2017, 9:12. FINDINGS: Image quality: Excellent. CSF spaces: Basal cisterns are patent. No extra-axial fluid collections. The ventricles are symmetric in size and shape. Brain: No intracranial bleeds or masses. There is cerebral volume loss for age, with resultant ventricular and sulcal prominence. There are periventricular and deep white matter chronic small vessel ischemic changes. 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 Skull and face: Calvarium and visualized facial bones appear intact, without suspicious lesions. Sinuses: Visualized sinuses and mastoids are clear. IMPRESSION: No acute intracranial disease process. Dictated by: Tanya Andrade MD, PhD on 04/01/2018 at 16:23 Approved by: Tanya Andrade MD, PhD on 04/01/2018 at 16:27 <Fannie Car, DO - Last Filed: 04/06/18 09:49> Lab Data Lab Results 04/01/18 04/01/18 Range/Units 16:30 16:30 WBC 17.7 H (4.5-11.0) X10^3/uL RBC 4.14 L (4.5-5.9) X10^6/uL Hgb 12.9 L (13.5-17.5) g/dL Hct 38.9 L (41-53) % MCV 93.9 (80-100) fL MCH 31.1 (26-34) PG MCHC 33.2 (30-36) % RDW 15.4 H (11.6-14.8) % Plt Count 355 (150-400) X10^3/uL Neut % (Auto) 77.2 H (50-75) % Lymph % (Auto) 10.4 L (25-40) % [place] % (Auto) 10.7 (3-14) % Eos % (Auto) 0.9 L (2-4) % Baso % (Auto) 0.8 (0-2) % Neut # (Auto) 45208 H (8184-5831) /uL Sodium 141 (137-145) mmol/L Potassium 4.4 (3.4-5.1) mmol/L Chloride 107 (98-107) mmol/L Carbon Dioxide 26 (22-32) mmol/L BUN 19 (9-20) mg/dL Creatinine 0.80 (0.66-1.25) mg/dL Estimated GFR > 60.0 (>60) mL/min BUN/Creatinine Ratio 23.8 H (6-22) Glucose 104 (80-110) mg/dL Calcium 8.5 (8.4-10.2) mg/dL Total Bilirubin 0.3 (0.2-1.3) mg/dL AST 15 L (17-59) IU/L ALT 18 L (21-72) IU/L Alkaline Phosphatase 112 (38-126) U/L Total Protein 6.2 L (6.3-8.2) g/dL Albumin 3.1 L (3.5-5.0) g/dL Globulin 3.1 (1.7-4.1) g/dL Albumin/Globulin Ratio 1.0 (1.0-2.8) Discharge Plan Departure Patient Disposition: Home Clinical Impression: Normal exam Discharge Date/Time: 04/01/18 17:27 Interventions: ED Discharge Assessment Last Done: 04/01/18 17:26 Instructions: Transient Ischemic Attack, Ischemic Stroke Prescriptions: No Action multivitamin Tablet 1 tab PO DAILY RF: 0 acetaminophen 325 mg Tablet 2 tab PO Q4H PRN (Reason: Pain, Mild) RF: 0 loperamide 2 mg Capsule 2 mg PO Q6H PRN (Reason: Diarrhea) RF: 0 hydrocodone-acetaminophen 5-325 mg tablet 0.5 tab PO QAM RF: 0 cyanocobalamin (vitamin B-12) [Vitamin B-12] 1,000 mcg Tablet 1 tab PO DAILY RF: 0 aspirin 81 mg Tablet,Delayed Release (Dr/Ec) 81 mg PO DAILY RF: 0 acetaminophen 500 mg Tablet 500 mg PO QID RF: 0 ascorbic acid (vitamin C) [Vitamin C] 500 mg Tablet 500 mg PO BID RF: 0 tamsulosin 0.4 mg capsule,extended release 24hr 0.4 mg PO DAILY RF: 0 metoprolol tartrate 50 mg tablet 1 tab PO BID RF: 0 sertraline 25 mg tablet 25 mg PO DAILY RF: 0 Lactobacillus acidophilus [Acidophilus] Capsule 2 cap PO BID RF: 0 ondansetron 4 mg Tablet,Disintegrating 4 mg PO Q4H PRN (Reason: Nausea) RF: 0 sodium chloride [Saline Mist] 0.65 % Aerosol,Glennie 1 spray Intranasal QID RF: 0 psyllium seed (sugar) [Reguloid] Powder 1 scoop/day PO DAILY RF: 0 cholecalciferol (vitamin D3) [Vitamin D3] 1,000 unit Tablet 1 tab PO DAILY RF: 0 mesalamine 1.2 gram tablet,delayed release (DR/EC) 2 tab PO DAILY RF: 0 diclofenac sodium 1 % gel 1 applic Topical TID RF: 0 Referrals: Rolanda Aparicio ARNP [Primary Care Provider] - (follow up recommended in 3-5 days) <Fannie Car DO - Last Filed: 04/06/18 09:49> Cosign ED Attending Cosignature Attestation: I was immediately available in the department for consultation. Documentation has been reviewed. I agree with assessment and plan.
[2018-04-01 16:00] VITALS: BP 132/90; PULSE 86; RESP 18
--- NOTE | 2018-04-01 16:02 | DI.CT.S_ITS ---
PROCEDURE: CT HEAD/BRAIN WO CON INDICATIONS: r/o stroke, right arm weakness. TECHNIQUE: Noncontrast 4.5 mm thick angled axial sections acquired from the foramen magnum to the vertex, with coronal and sagittal reformats. For radiation dose reduction, the following was used: automated exposure control, adjustment of mA and/or kV according to patient size. COMPARISON: [facility], CT, CT HEAD/BRAIN WO CON, 12/14/2017, 9:12. FINDINGS: Image quality: Excellent. CSF spaces: Basal cisterns are patent. No extra-axial fluid collections. The ventricles are symmetric in size and shape. Brain: No intracranial bleeds or masses. There is cerebral volume loss for age, with resultant ventricular and sulcal prominence. There are periventricular and deep white matter chronic small vessel ischemic changes. 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 Skull and face: Calvarium and visualized facial bones appear intact, without suspicious lesions. Sinuses: Visualized sinuses and mastoids are clear. IMPRESSION: No acute intracranial disease process. Dictated by: Tanya Andrade MD, PhD on 04/01/2018 at 16:23 Approved by: Tanya Andrade MD, PhD on 04/01/2018 at 16:27
[2018-04-01 16:33] LABS: Add Manual Diff / Slide Review NO; Basophils Percent Auto 0.8 % (0-2); Eosinophils Percent Auto 0.9 % (2-4); Hematocrit 38.9 % (41-53); Hemoglobin 12.9 g/dL (13.5-17.5); Lymphocytes Percent Auto 10.4 % (25-40); Mean Corpuscular HGB Conc 33.2 % (30-36); Mean Corpuscular Hemoglobin 31.1 PG (26-34); Mean Corpuscular Volume 93.9 fL (80-100); Monocytes Percent Auto 10.7 % (3-14); Neutrophils Absolute Auto 13700 /uL (3000-5900); Neutrophils Percent Auto 77.2 % (50-75); Platelet Count 355 X10^3/uL (150-400); Red Blood Cell Count 4.14 X10^6/uL (4.5-5.9); Red Cell Distribution Width 15.4 % (11.6-14.8); White Blood Cell Count 17.7 X10^3/uL (4.5-11.0)
--- NOTE | 2018-04-01 16:33 | PC.NURSE ---
Patient comes from facility with caregiver. Family and nurse at facility concerned of a facial droop, drooling and decline. Patient caregiver states she doesn't appreciate anything acute. Patient denies any complaints at this time, denies any new changes, no focal weakness appreciated. Patient transferred from wheelchair to bed with minimal assistance. Equal facial strength and extremity strength. Patient denies chest pain, SOB, abn bowel or bladder patterns. Resistant to come
[2018-04-01 16:48] LABS: Alanine Aminotransferase 18 IU/L (21-72); Albumin 3.1 g/dL (3.5-5.0); Alkaline Phosphatase 112 U/L (38-126); Aspartate Aminotransferase 15 IU/L (17-59); BUN Creatinine Ratio 23.8 (6-22); Bilirubin Total 0.3 mg/dL (0.2-1.3); Blood Urea Nitrogen 19 mg/dL (9-20); Calcium 8.5 mg/dL (8.4-10.2); Carbon Dioxide 26 mmol/L (22-32); Chloride 107 mmol/L (98-107); Estimated Glomerular Filt Rate > 60.0 mL/min (>60); Globulin 3.1 g/dL (1.7-4.1); Glucose 104 mg/dL (80-110); HEMOLYSIS < 15 (0-50); Potassium 4.4 mmol/L (3.4-5.1); Sodium 141 mmol/L (137-145); Total Protein 6.2 g/dL (6.3-8.2)
--- NOTE | 2018-04-01 17:15 | ED_ITS ---
HPI - Medical Clearance <JAVIER Abdul - Last Filed: 04/01/18 17:32> General Chief complaint: Medical Clearance Stated complaint: thinks he had a stroke Time Seen by Provider: 04/01/18 15:54 Source: patient and other (caregiver) Mode of arrival: wheelchair Limitations: no limitations History of Present Illness HPI Narrative: sent here from intermediate facility to r/o stroke because staff was concerned about his facial droop, according to supervisor [employer] and pt, facial droop is chronic and he has had it for years, denies any new s/s, pain, concerns or issues Reason for Medical Clearance: other (as per above) Place: other (intermediate) Traumatic Symptoms: denies traumatic injury Associated Symptoms: denies other symptoms Treatments Prior to Arrival: none Home Medications Medication Instructions Recorded Confirmed Lactobacillus acidophilus 2 cap PO BID 12/14/17 04/01/18 [Acidophilus] acetaminophen 2 tab PO Q4H PRN 12/14/17 04/01/18 acetaminophen 500 mg PO QID 12/14/17 04/01/18 ascorbic acid (vitamin C) [Vitamin 500 mg PO BID 12/14/17 04/01/18 C] aspirin 81 mg PO DAILY 12/14/17 04/01/18 cholecalciferol (vitamin D3) 1 tab PO DAILY 12/14/17 04/01/18 [Vitamin D3] cyanocobalamin (vitamin B-12) 1 tab PO DAILY 12/14/17 04/01/18 [Vitamin B-12] diclofenac sodium 1 applic TOPICAL TID 12/14/17 04/01/18 hydrocodone-acetaminophen 0.5 tab PO QAM 12/14/17 04/01/18 loperamide 2 mg PO Q6H PRN 12/14/17 04/01/18 mesalamine 2 tab PO DAILY 12/14/17 04/01/18 metoprolol tartrate 1 tab PO BID 12/14/17 04/01/18 multivitamin 1 tab PO DAILY 12/14/17 04/01/18 ondansetron 4 mg PO Q4H PRN 12/14/17 04/01/18 psyllium seed (sugar) [Reguloid] 1 scoop/day PO DAILY 12/14/17 04/01/18 sertraline 25 mg PO DAILY 12/14/17 04/01/18 sodium chloride [Saline Mist] 1 spray INTRANASAL QID 12/14/17 04/01/18 tamsulosin 0.4 mg PO DAILY 12/14/17 04/01/18 Allergies Allergy/AdvReac Type Severity Reaction Status Date / Time No Known Drug Allergies Allergy Verified 04/01/18 15:53 Review of Systems <JAVIER Abdul - Last Filed: 04/01/18 17:32> Review of Systems All systems reviewed & are unremarkable except as noted in HPI and below Constitutional Denies fatigue, Denies fever(s), Denies frequent falls, Denies headache(s), Denies lethargy, Denies malaise, Denies poor appetite and Denies weakness Eyes Reports system reviewed and no additional complaints, except as docu, Denies blurry vision, Denies change in vision, Denies loss of vision, Denies other visual disturbances and Denies eye pain ENT Ears, Nose, Mouth, and Throat: Denies vertigo, Denies dizziness, Denies otalgia , Denies facial pain, Denies headache(s) and Denies neck pain Cardiovascular Denies chest pain and Denies dyspnea Respiratory Denies dyspnea Gastrointestinal Gastrointestinal: Denies diarrhea and Denies vomiting Genitourinary Denies difficulty urinating Musculoskeletal Denies abnormal gait, Denies back pain, Denies myalgias, Denies muscle weakness , Denies neck pain and Denies numbness Neurologic Denies abnormal speech, Denies abnormal gait, Denies confusion, Denies vertigo, Denies dizziness, Denies frequent falls, Denies headache(s), Denies focal weakness, Denies loss of vision, Denies memory loss, Denies numbness, Denies other visual disturbances, Denies sensory deficit, Denies paresthesias and Denies weakness Psychiatric Denies confusion and Denies memory loss Endocrine Denies fatigue Exam <JAVIER Abdul - Last Filed: 04/01/18 17:32> Initial Vital Signs Initial Vital Signs: Vital Signs Temperature 97.3 F L 04/01/18 15:40 Pulse Rate 84 04/01/18 15:40 Respiratory Rate 20 04/01/18 15:40 Blood Pressure 156/78 H 04/01/18 15:40 Pulse Oximetry 98 04/01/18 15:40 Const General: cooperative, healthy appearing, comfortable, well developed and well groomed Nutritional Appearance: average body habitus Orientation: alert, awake and oriented x3 [facility] Head: normal to inspection and normocephalic Ears: hearing grossly normal bilaterally, external ears normal, TM's normal bilaterally and mastoids normal Nose: external nose normal, nares normal and septum normal Face and sinus: sinuses nontender, face asymmetric, laceration (R eyebrow area, 1cm closed with scab, no s/s of infection, no erythema, mild tenderness, mild swelling and contusion to that area) and other (facial droop noted on R side) Mouth: oral mucosae normal, lip normal, tongue normal, oropharynx normal, moist mucous membranes and No mouth trauma Teeth and gingiva: dentition normal and gingiva normal Throat: posterior oropharynx normal, tonsils normal and uvula midline Eyes General: appearance normal, both eyes and all related structures Visual River: normal visual river by confrontation Eyelids: eyelids normal Conjunctivae: conjunctivae normal Sclera: sclerae normal Pupils: PERRL EOM: EOM intact bilaterally Direct ophthalmoscopy: normal light reflex, no papilledema, fundi normal bilaterally and anterior chamber normal Neck Neck: normal visual inspection, full ROM, no meningeal signs, trachea midline, supple, No lymphadenopathy, No midline deformity, No tender and No tracheal deviation Chest Chest: normal inspection of the chest Resp Effort & Inspection: normal respiratory effort and able to speak in complete sentences Auscultation: clear to auscultation bilaterally Cardio Rate: regular rate Rhythm: regular rhythm Heart Sounds: S1 normal and S2 normal Back/Spine/Pelvis Back: normal to inspection and No back tenderness Cervical Spine: cervical ROM normal Thoracic/Lumbar Spine: thoracic and lumbar spine normal to inspection and thoraco-lumbar ROM normal Sacroiliac Joints: nontender Skin General: no rashes or lesions noted, elasticity normal, turgor normal and dry skin Neuro General: alert, awake, oriented x3 and meningeal signs present Cognition: normal cognition Speech: speech normal Gait: normal gait Motor: muscle tone normal throughout Sensory Exam: no sensory deficits noted Extrem General: normal to inspection and full ROM Psych Appearance: grossly normal and well kempt Mental Status: mental status grossly normal Speech and Movement: speech and movement normal Mood: congruent mood Affect: normal affect Attitude: cooperative Thought Process: normal Thought Content: normal Judgment: judgment good <Fannie Botnick, DO - Last Filed: 04/06/18 09:49> Initial Vital Signs Initial Vital Signs: Vital Signs Temperature 97.3 F L 04/01/18 15:40 Pulse Rate 84 04/01/18 15:40 Respiratory Rate 20 04/01/18 15:40 Blood Pressure 156/78 H 04/01/18 15:40 Pulse Oximetry 98 04/01/18 15:40 MDM - Medical Clearance <JAVIER Abdul - Last Filed: 04/01/18 17:32> Lab Data Result diagrams: 04/01/18 16:30 04/01/18 16:30 Lab Results 04/01/18 04/01/18 Range/Units 16:30 16:30 WBC 17.7 H (4.5-11.0) X10^3/uL RBC 4.14 L (4.5-5.9) X10^6/uL Hgb 12.9 L (13.5-17.5) g/dL Hct 38.9 L (41-53) % MCV 93.9 (80-100) fL MCH 31.1 (26-34) PG MCHC 33.2 (30-36) % RDW 15.4 H (11.6-14.8) % Plt Count 355 (150-400) X10^3/uL Neut % (Auto) 77.2 H (50-75) % Lymph % (Auto) 10.4 L (25-40) % Weston % (Auto) 10.7 (3-14) % Eos % (Auto) 0.9 L (2-4) % Baso % (Auto) 0.8 (0-2) % Neut # (Auto) 17959 H (3305-7911) /uL Sodium 141 (137-145) mmol/L Potassium 4.4 (3.4-5.1) mmol/L Chloride 107 (98-107) mmol/L Carbon Dioxide 26 (22-32) mmol/L BUN 19 (9-20) mg/dL Creatinine 0.80 (0.66-1.25) mg/dL Estimated GFR > 60.0 (>60) mL/min BUN/Creatinine Ratio 23.8 H (6-22) Glucose 104 (80-110) mg/dL Calcium 8.5 (8.4-10.2) mg/dL Total Bilirubin 0.3 (0.2-1.3) mg/dL AST 15 L (17-59) IU/L ALT 18 L (21-72) IU/L Alkaline Phosphatase 112 (38-126) U/L Total Protein 6.2 L (6.3-8.2) g/dL Albumin 3.1 L (3.5-5.0) g/dL Globulin 3.1 (1.7-4.1) g/dL Albumin/Globulin Ratio 1.0 (1.0-2.8) Imaging Data CT scan - head: Radiologist's impression: [address] [address] [address] Scan Report Signed Patient: Dameon Burt JMR#: [id number] : 7Acct:[id number] Age/Sex: 82 / MDate of Service: 04/01/18 Loc: ED Accession Number: [id number] Procedure: CT head/brain wo con Ordering Provider: Andie Mead PROCEDURE: CT HEAD/BRAIN WO CON INDICATIONS: r/o stroke, right arm weakness. TECHNIQUE: Noncontrast 4.5 mm thick angled axial sections acquired from the foramen magnum to the vertex, with coronal and sagittal reformats. For radiation dose reduction, the following was used: automated exposure control, adjustment of mA and/or kV according to patient size. COMPARISON: [facility], CT, CT HEAD/BRAIN WO CON, 12/14/2017, 9:12. FINDINGS: Image quality: Excellent. CSF spaces: Basal cisterns are patent. No extra-axial fluid collections. The ventricles are symmetric in size and shape. Brain: No intracranial bleeds or masses. There is cerebral volume loss for age , with resultant ventricular and sulcal prominence. There are periventricular and deep white matter chronic small vessel ischemic changes. 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 Skull and face: Calvarium and visualized facial bones appear intact, without suspicious lesions. Sinuses: Visualized sinuses and mastoids are clear. IMPRESSION: No acute intracranial disease process. Dictated by: Tanya Andrade MD, PhD on 04/01/2018 at 16:23 Approved by: Tanya Andrade MD, PhD on 04/01/2018 at 16:27 <Fannie Car, DO - Last Filed: 04/06/18 09:49> Lab Data Lab Results 04/01/18 04/01/18 Range/Units 16:30 16:30 WBC 17.7 H (4.5-11.0) X10^3/uL RBC 4.14 L (4.5-5.9) X10^6/uL Hgb 12.9 L (13.5-17.5) g/dL Hct 38.9 L (41-53) % MCV 93.9 (80-100) fL MCH 31.1 (26-34) PG MCHC 33.2 (30-36) % RDW 15.4 H (11.6-14.8) % Plt Count 355 (150-400) X10^3/uL Neut % (Auto) 77.2 H (50-75) % Lymph % (Auto) 10.4 L (25-40) % Weston % (Auto) 10.7 (3-14) % Eos % (Auto) 0.9 L (2-4) % Baso % (Auto) 0.8 (0-2) % Neut # (Auto) 68227 H (9292-1909) /uL Sodium 141 (137-145) mmol/L Potassium 4.4 (3.4-5.1) mmol/L Chloride 107 (98-107) mmol/L Carbon Dioxide 26 (22-32) mmol/L BUN 19 (9-20) mg/dL Creatinine 0.80 (0.66-1.25) mg/dL Estimated GFR > 60.0 (>60) mL/min BUN/Creatinine Ratio 23.8 H (6-22) Glucose 104 (80-110) mg/dL Calcium 8.5 (8.4-10.2) mg/dL Total Bilirubin 0.3 (0.2-1.3) mg/dL AST 15 L (17-59) IU/L ALT 18 L (21-72) IU/L Alkaline Phosphatase 112 (38-126) U/L Total Protein 6.2 L (6.3-8.2) g/dL Albumin 3.1 L (3.5-5.0) g/dL Globulin 3.1 (1.7-4.1) g/dL Albumin/Globulin Ratio 1.0 (1.0-2.8) Discharge Plan Departure Patient Disposition: Home Clinical Impression: Normal exam Discharge Date/Time: 04/01/18 17:27 Interventions: ED Discharge Assessment Last Done: 04/01/18 17:26 Instructions: Transient Ischemic Attack, Ischemic Stroke Prescriptions: No Action multivitamin Tablet 1 tab PO DAILY RF: 0 acetaminophen 325 mg Tablet 2 tab PO Q4H PRN (Reason: Pain, Mild) RF: 0 loperamide 2 mg Capsule 2 mg PO Q6H PRN (Reason: Diarrhea) RF: 0 hydrocodone-acetaminophen 5-325 mg tablet 0.5 tab PO QAM RF: 0 cyanocobalamin (vitamin B-12) [Vitamin B-12] 1,000 mcg Tablet 1 tab PO DAILY RF: 0 aspirin 81 mg Tablet,Delayed Release (Dr/Ec) 81 mg PO DAILY RF: 0 acetaminophen 500 mg Tablet 500 mg PO QID RF: 0 ascorbic acid (vitamin C) [Vitamin C] 500 mg Tablet 500 mg PO BID RF: 0 tamsulosin 0.4 mg capsule,extended release 24hr 0.4 mg PO DAILY RF: 0 metoprolol tartrate 50 mg tablet 1 tab PO BID RF: 0 sertraline 25 mg tablet 25 mg PO DAILY RF: 0 Lactobacillus acidophilus [Acidophilus] Capsule 2 cap PO BID RF: 0 ondansetron 4 mg Tablet,Disintegrating 4 mg PO Q4H PRN (Reason: Nausea) RF: 0 sodium chloride [Saline Mist] 0.65 % Aerosol,Fletcher 1 spray Intranasal QID RF: 0 psyllium seed (sugar) [Reguloid] Powder 1 scoop/day PO DAILY RF: 0 cholecalciferol (vitamin D3) [Vitamin D3] 1,000 unit Tablet 1 tab PO DAILY RF: 0 mesalamine 1.2 gram tablet,delayed release (DR/EC) 2 tab PO DAILY RF: 0 diclofenac sodium 1 % gel 1 applic Topical TID RF: 0 Referrals: Rolanda Aparicio ARNP [Primary Care Provider] - (follow up recommended in 3- 5 days) <Fannie Car DO - Last Filed: 04/06/18 09:49> Cosign ED Attending Cosignature Attestation: I was immediately available in the department for consultation. Documentation has been reviewed. I agree with assessment and plan.
[2018-04-01 17:25] VITALS: BP 134/90; PULSE 67; RESP 18; O2SAT 98
== END 2018-04-01 17:27 | disposition home or self-care (01) ==
PROVIDERS: Emergency Provider Nurse Practitioner; PCP Nurse Practitioner Family
DX: R29.810 Facial weakness (principal)
CPT/HCPCS: 36591; 70450; 80053; 85025; 99282; 99284

== ENCOUNTER 2018-04-06 08:26 | Inpatient (IN) | payer MEDICARE, SELFPAY ==
[2018-04-06] VITALS (9 sets, daily range): BP systolic 125–143; BP diastolic 65–95; PULSE 59–127; RESP 14–25; TEMP 36.4–37.3; O2SAT 95–100; BMI 24.8
--- NOTE | 2018-04-06 | DI.MRI.S_ITS ---
PROCEDURE: MR HEAD/BRAIN WO CON INDICATIONS: unexplained frequent falling, suspect new CVA TECHNIQUE: Non-contrast axial T1 spin echo, axial T2 fast spin echo, sagittal and axial FLAIR, coronal T2 fast spin echo, axial gradient echo, axial diffusion and ADC through the brain. COMPARISON: [facility], MR, STROKE PROTOCOL, 09/05/2013, 10:45. [facility], CT, CT HEAD/BRAIN WO CON, 04/01/2018, 16:07. FINDINGS: Image quality: Excellent. CSF spaces: There is moderate cerebral volume loss with prominence of the ventricles and sulci. Basal cisterns are patent. No extra-axial fluid collections. Brain: Diffusion weighted images demonstrate no acute infarcts. There is a small focus of volume loss in the right coronal radiata with adjacent T2 hyperintensity redemonstrated compatible with a prior lacunar infarct. A small focus of associated magnetic susceptibility within this region suggests a prior hemorrhagic lacunar infarct. Brainstem appears normal. Skull and face: Calvarial bone marrow is normal in signal. Orbits are normal. Sinuses: Sinuses and mastoids are clear. IMPRESSION: 1. No acute intracranial abnormality. 2. Moderate cerebral volume loss. 3. 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 Dictated by: Keanu Mercado M.D. on 04/06/2018 at 17:17 Approved by: Keanu Mercado M.D. on 04/06/2018 at 17:28
--- NOTE | 2018-04-06 09:31 | DI.RAD.S_ITS ---
PROCEDURE: XR CHEST 1V INDICATIONS: increasing weakness high wbc TECHNIQUE: One view of the chest was acquired. COMPARISON: [facility], , CHEST 2 VIEW, 09/04/2013, 15:36. FINDINGS: Surgical changes and devices: None. Lungs and pleura: No pleural effusions or pneumothorax. There is a nodular opacity in the right perihilar region measuring up to 1.8 cm. Elsewhere, no focal consolidation. Mediastinum: Mediastinal contours appear unchanged. Heart size is normal. Bones and chest wall: No suspicious bony lesions. Overlying soft tissues appear unremarkable. IMPRESSION: 1. Right perihilar nodular opacity may represent confluence of bony and vascular structures but a pulmonary nodule is not excluded. Recommend a repeat PA and lateral study when clinically feasible. 2. No definite focal consolidation. Dictated by: Keanu Mercado M.D. on 04/06/2018 at 10:14 Approved by: Keanu Mercado M.D. on 04/06/2018 at 10:15
--- NOTE | 2018-04-06 09:31 | DI.RAD.S_ITS ---
PROCEDURE: XR SHOULDER RT MIN 2V INDICATIONS: fall TECHNIQUE: 3 views of the shoulder were acquired. COMPARISON: [facility], , SHOULDER MINIMUM 2VIEW RIGHT, 12/09/2015, 14:11. FINDINGS: Bones: No fractures or dislocations. There is severe degeneration along the glenohumeral joint redemonstrated. Mild degeneration also noted at the acromioclavicular joint. No suspicious bony lesions. Visualized ribs appear intact. Soft tissues: No suspicious soft tissue calcifications. IMPRESSION: 1. No fracture or dislocation. 2. Severe glenohumeral joint degeneration. Dictated by: Keanu Mercado M.D. on 04/06/2018 at 10:15 Approved by: Keanu Mercado M.D. on 04/06/2018 at 10:16
--- NOTE | 2018-04-06 09:37 | ED.FALL ---
HPI - Fall General Chief Complaint: Fall Stated Complaint: FALL Time Seen by Provider: 04/06/18 09:14 Source: patient, family and old records reviewed Mode of arrival: ambulatory Limitations: no limitations History of Present Illness HPI Narrative: Patient is a 82-year-old male who presents with a fall. He said he slid out of bed and landed on his right shoulder complaining of right shoulder pain. Nephew at bedside states that he had progressive is slow weakness. He is urine evaluated April 01 for possible TIA at that time he had blood work and head CT. He was found to have leukocytosis but no other investigation. He has no complaints besides his right shoulder. Nephew states that he is not any more confused, but definitely weaker than he was last week. His now at bedside states that he did not fall getting out of bed she was walking with his walker which he normally does and was unable to remain standing and he kind of slid down the wall to the right shoulder. No head injury MD complaint: fall Onset (ago): minute(s) Related Data Home Medications Medication Instructions Recorded Confirmed Lactobacillus acidophilus 2 cap PO BID 12/14/17 04/01/18 [Acidophilus] acetaminophen 2 tab PO Q4H PRN 12/14/17 04/01/18 acetaminophen 500 mg PO QID 12/14/17 04/01/18 ascorbic acid (vitamin C) [Vitamin 500 mg PO BID 12/14/17 04/01/18 C] aspirin 81 mg PO DAILY 12/14/17 04/01/18 cholecalciferol (vitamin D3) 1 tab PO DAILY 12/14/17 04/01/18 [Vitamin D3] cyanocobalamin (vitamin B-12) 1 tab PO DAILY 12/14/17 04/01/18 [Vitamin B-12] diclofenac sodium 1 applic TOPICAL TID 12/14/17 04/01/18 hydrocodone-acetaminophen 0.5 tab PO QAM 12/14/17 04/01/18 loperamide 2 mg PO Q6H PRN 12/14/17 04/01/18 mesalamine 2 tab PO DAILY 12/14/17 04/01/18 metoprolol tartrate 1 tab PO BID 12/14/17 04/01/18 multivitamin 1 tab PO DAILY 12/14/17 04/01/18 ondansetron 4 mg PO Q4H PRN 12/14/17 04/01/18 psyllium seed (sugar) [Reguloid] 1 scoop/day PO DAILY 12/14/17 04/01/18 sertraline 25 mg PO DAILY 12/14/17 04/01/18 sodium chloride [Saline Mist] 1 spray INTRANASAL QID 12/14/17 04/01/18 tamsulosin 0.4 mg PO DAILY 12/14/17 04/01/18 Allergies Allergy/AdvReac Type Severity Reaction Status Date / Time No Known Drug Allergies Allergy Verified 04/01/18 15:53 Review of Systems Review of Systems All systems reviewed & are unremarkable except as noted in HPI and below Constitutional Denies chills, Denies fever(s), Denies lethargy and Denies weakness Eyes Denies change in vision, Denies eye discharge, Denies irritation and Denies loss of vision Comments: Right eye squinting, decreased ability to open uncommon this is old ongoing ENT Ears, Nose, Mouth, and Throat: Denies change in voice, Denies neck pain and Denies sore throat Cardiovascular Denies chest pain, Denies irregular heart rhythm, Denies lightheadedness, Denies palpitations, Denies dyspnea, Denies dyspnea on exertion and Denies orthopnea Respiratory Denies cough, Denies dyspnea, Denies dyspnea on exertion and Denies wheezing Gastrointestinal Gastrointestinal: Denies abdominal pain, Denies change in bowel habits, Denies diarrhea, Denies nausea and Denies vomiting Genitourinary Denies hematuria, Denies flank pain, Denies urinary incontinence and Denies urinary urgency Musculoskeletal Reports as per HPI and Denies neck pain Integumentary/Breasts Denies pruritus, Denies erythema, Denies rash and Denies wounds Neurologic Denies loss of vision and Denies weakness Endocrine Denies palpitations Allergic/Immunologic Denies wheezing Exam Initial Vital Signs Initial Vital Signs: Vital Signs Temperature 97.6 F 04/06/18 09:05 Pulse Rate 74 04/06/18 09:05 Respiratory Rate 14 04/06/18 09:05 Blood Pressure 142/95 H 04/06/18 09:05 Pulse Oximetry 99 04/06/18 09:05 GENERAL: Alert cooperative elderly male no acute distress HEENT: Head healing wound left temporal area no surrounding erythema,, able to open both eyes but does partially close the right eye, EOMI, PERRL CARDIOVASCULAR: Regular rate and rhythm without murmurs, rubs or gallops. RESPIRATORY: Breath sounds equal bilaterally, no wheezes rales or rhonchi. ABDOMEN: Soft, nontender. Normoactive bowel sounds all 4 quadrants. No guarding or rebound. : No CVA tenderness BACK: No sign of trauma no vertebral tenderness no step-offs EXTREMITIES: Normal range of motion, no clubbing or edema. Neurovascularly intact Right shoulder decreased range of motion due to pain no step-offs sensation over the deltoid intact strong distal radial pulse NEUROLOGICAL: Alert and oriented x4.Normal gait and speech. Cranial nerves II through XII grossly intact. 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 [facility] Medical History CHF (congestive heart failure) (Acute) Colon cancer (Acute) Coronary artery disease (Acute) Hyperlipidemia (Acute) Hypertension (Acute) Polymyalgia rheumatica (Acute) Social History household members: spouse housing: assisted living facility Smoking Status: Former smoker alcohol intake: former Course Orders Ordered: ED Orders 04/06/18 09:31 XR chest 1V Stat XR shoulder RT min 2V Stat 04/06/18 10:17 Basic Metabolic Panel Stat Bilirubin Total Stat Complete Blood Count AUTO DIFF Stat Lactate (Lactic Acid) Stat Partial Thromboplastin Time Stat Procalcitonin Stat Prothrombin Time INR Stat 04/06/18 10:35 Blood Culture Stat 04/06/18 11:30 Urinalysis and Microscopic Stat Urine Culture Stat 04/06/18 15:02 Consult to [employer] Routine Acetaminophen (Tylenol) 650 mg PO Q6HR PRN PRN Reason: As Needed for Fever/Mild Pain Sodium Chloride (Normal Saline 0.9%) 1,000 mls @ 150 mls/hr IV CONT NINI Last Infusion: 04/06/18 13:56 Dose: 150 mls/hr Admin: 04/06/18 10:20 Dose: 150 mls/hr Sodium Chloride (Normal Saline 0.9%) 1,000 mls @ 125 mls/hr IV CONT NINI Ondansetron HCl (Zofran) 4 mg IV Q4HR PRN PRN Reason: Nausea And Vomiting Vital Signs - 8 hr 04/06/18 09:05 04/06/18 10:00 04/06/18 11:00 Temperature 97.6 F Pulse Rate 74 59 L 101 H Respiratory Rate 14 Blood Pressure 142/95 H Blood Pressure [Left Arm] Blood Pressure [Right Arm] 133/66 125/76 Pulse Oximetry 99 99 04/06/18 12:00 04/06/18 13:01 04/06/18 13:54 Temperature Pulse Rate 117 H 104 H 109 H Respiratory Rate 25 H 18 18 Blood Pressure 131/70 Blood Pressure [Left Arm] 143/72 H Blood Pressure [Right Arm] 135/66 Pulse Oximetry 98 100 100 04/06/18 14:00 Temperature 99.1 F Pulse Rate 127 H Respiratory Rate 14 Blood Pressure 142/65 H Blood Pressure [Left Arm] Blood Pressure [Right Arm] Pulse Oximetry 100 MDM - Fall Medical Records Attestation: I reviewed the patient's medical records. Lab Data Attestation: I reviewed the patient's lab results. Result diagrams: 04/06/18 10:17 04/06/18 10:17 Lab Results 04/06/18 04/06/18 04/06/18 Range/Units 10:17 10:17 10:17 WBC 18.7 H (4.5-11.0) X10^3/uL RBC 4.14 L (4.5-5.9) X10^6/uL Hgb 12.6 L (13.5-17.5) g/dL Hct 38.5 L (41-53) % MCV 93.1 (80-100) fL MCH 30.5 (26-34) PG MCHC 32.7 (30-36) % RDW 15.1 H (11.6-14.8) % Plt Count 353 (150-400) X10^3/uL Neut % (Auto) 84.5 H (50-75) % Lymph % (Auto) 4.7 L (25-40) % [place] % (Auto) 9.7 (3-14) % Eos % (Auto) 0.4 L (2-4) % Baso % (Auto) 0.7 (0-2) % Neut # (Auto) 74955 H (4656-5705) /uL PT 11.8 (10.1-12.7) SECONDS INR 1.1 (0.9-1.3) APTT 30 D (26.4-36.2) SECONDS Sodium (137-145) mmol/L Potassium (3.4-5.1) mmol/L Chloride (98-107) mmol/L Carbon Dioxide (22-32) mmol/L BUN (9-20) mg/dL Creatinine (0.66-1.25) mg/dL Estimated GFR (>60) mL/min BUN/Creatinine Ratio (6-22) Glucose (80-110) mg/dL Lactate (0.7-2.1) mmol/L Calcium (8.4-10.2) mg/dL Total Bilirubin (0.2-1.3) mg/dL Procalcitonin < 0.05 (<0.5) ng/mL Urine Color Urine Appearance Urine pH (4.5-8.0) Ur Specific [place] (1.000-1.035) Urine Protein (Negative) Urine Glucose (UA) (Normal) g/dL Urine Ketones (NEGATIVE) Urine Occult Blood (Negative) Urine Nitrate (Negative) Urine Bilirubin (NEGATIVE) Urine Urobilinogen (0.2) E.U./dL Ur Leukocyte Esterase (NEGATIVE) Urine RBC (0-5/HPF) Urine WBC (0-5/HPF) Urine Bacteria (None) Urine Mucus (Negative) Ur Culture Indicated? Micro UA Comment 04/06/18 04/06/18 04/06/18 Range/Units 10:17 10:17 11:30 WBC (4.5-11.0) X10^3/uL RBC (4.5-5.9) X10^6/uL Hgb (13.5-17.5) g/dL Hct (41-53) % MCV (80-100) fL MCH (26-34) PG MCHC (30-36) % RDW (11.6-14.8) % Plt Count (150-400) X10^3/uL Neut % (Auto) (50-75) % Lymph % (Auto) (25-40) % [place] % (Auto) (3-14) % Eos % (Auto) (2-4) % Baso % (Auto) (0-2) % Neut # (Auto) (5181-4542) /uL PT (10.1-12.7) SECONDS INR (0.9-1.3) APTT (26.4-36.2) SECONDS Sodium 141 (137-145) mmol/L Potassium 4.2 (3.4-5.1) mmol/L Chloride 106 (98-107) mmol/L Carbon Dioxide 27 (22-32) mmol/L BUN 16 (9-20) mg/dL Creatinine 0.80 (0.66-1.25) mg/dL Estimated GFR > 60.0 (>60) mL/min BUN/Creatinine Ratio 20.0 (6-22) Glucose 107 (80-110) mg/dL Lactate 1.4 (0.7-2.1) mmol/L Calcium 8.5 (8.4-10.2) mg/dL Total Bilirubin 0.5 (0.2-1.3) mg/dL Procalcitonin (<0.5) ng/mL Urine Color Yellow Urine Appearance Clear Urine pH 5.0 (4.5-8.0) Ur Specific [place] 1.020 (1.000-1.035) Urine Protein 1+ H (Negative) Urine Glucose (UA) Negative (Normal) g/dL Urine Ketones Trace H (NEGATIVE) Urine Occult Blood 1+ H (Negative) Urine Nitrate Negative (Negative) Urine Bilirubin Negative (NEGATIVE) Urine Urobilinogen 0.2 (0.2) E.U./dL Ur Leukocyte Esterase Trace H (NEGATIVE) Urine RBC 1-5/hpf (0-5/HPF) Urine WBC 5-10/hpf H (0-5/HPF) Urine Bacteria None seen (None) Urine Mucus 1+ H (Negative) Ur Culture Indicated? Specimen cultured Micro UA Comment Microscopic normal Urine Dip Bedside Urine Glucose Negative Bedside Urine Bilirubin - Negative Bedside Urine Ketone + 15 Urine Specific [place] 1.025 Bedside Urine Occult Blood +/- Bedside Urine pH 5.5 Bedside Urine Protein + 30 Bedside Urine Urobilinogen - Negative Bedside Urine Nitrite - Negative Bedside Urine Leukocytes + 70 Esterase Imaging Data Chest x-ray: Radiologist's impression: PROCEDURE: XR CHEST 1V INDICATIONS: increasing weakness high wbc TECHNIQUE: One view of the chest was acquired. COMPARISON: [facility], CHEST 2 VIEW, 09/04/2013, 15:36. FINDINGS: Surgical changes and devices: None. Lungs and pleura: No pleural effusions or pneumothorax. There is a nodular opacity in the right perihilar region measuring up to 1.8 cm. Elsewhere, no focal consolidation. Mediastinum: Mediastinal contours appear unchanged. Heart size is normal. Bones and chest wall: No suspicious bony lesions. Overlying soft tissues appear unremarkable. IMPRESSION: 1. Right perihilar nodular opacity may represent confluence of bony and vascular structures but a pulmonary nodule is not excluded. Recommend a repeat PA and lateral study when clinically feasible. 2. No definite focal consolidation. Dictated by: Keanu Mercado M.D. on 04/06/2018 at 10:14 Right shoulder x-ray:: Radiologist's impression: PROCEDURE: XR SHOULDER RT MIN 2V INDICATIONS: fall TECHNIQUE: 3 views of the shoulder were acquired. COMPARISON: [facility], , SHOULDER MINIMUM 2VIEW RIGHT, 12/09/2015, 14:11. FINDINGS: Bones: No fractures or dislocations. There is severe degeneration along the glenohumeral joint redemonstrated. Mild degeneration also noted at the acromioclavicular joint. No suspicious bony lesions. Visualized ribs appear intact. Soft tissues: No suspicious soft tissue calcifications. IMPRESSION: 1. No fracture or dislocation. 2. Severe glenohumeral joint degeneration. Dictated by: Keanu Mercado M.D. on 04/06/2018 at 10:15 MDM Narrative Medical decision making narrative: Patient has increasing leukocytosis he does have a baseline elevated high white count 11 to 13,000. On 04/01/2018 it was 17,000 today it has risen and does have a left shift. No obvious sign of infection he does have a pulmonary nodule on not likely to be pneumonia. He has mild leukocytosis in his urine but negative procalcitonin and normal lactic acid. And no signs or symptoms of a UTI. Patient is weak he is not able to walk with his for he has progressively declined over the week. Last week he was doing better according to family. Dr. Dutta updated patient's symptoms test results. Agrees no antibiotics at this time. Agrees to observation. Discharge Plan Departure Patient Disposition: Admitted as Observation Clinical Impression: Leukocytosis, Weakness Discharge Date/Time: 04/06/18 13:59 Interventions: ED Discharge Assessment Last Done: 04/06/18 13:54 Admit Date/Time: 04/06/18 13:35 Admit Provider: Fady Dutta
[2018-04-06] MEDS: SODIUM CHLORIDE 0.9% 1,000 ML 150 ML IV (10:20)
[2018-04-06 10:28] LABS: INR 1.1 (0.9-1.3); Prothrombin Time 11.8 SECONDS (10.1-12.7)
[2018-04-06 10:31] LABS: PTT Partial Thromboplastin Tim 30 SECONDS (26.4-36.2)
[2018-04-06 10:32] LABS: Bilirubin Total 0.5 mg/dL (0.2-1.3); Blood Urea Nitrogen 16 mg/dL (9-20); Calcium 8.5 mg/dL (8.4-10.2); Carbon Dioxide 27 mmol/L (22-32); Chloride 106 mmol/L (98-107); Estimated Glomerular Filt Rate > 60.0 mL/min (>60); Glucose 107 mg/dL (80-110); HEMOLYSIS < 15 (0-50); Lactate (Lactic Acid) 1.4 mmol/L (0.7-2.1); Potassium 4.2 mmol/L (3.4-5.1); Sodium 141 mmol/L (137-145)
[2018-04-06 10:33] LABS: Add Manual Diff / Slide Review NO; Basophils Percent Auto 0.7 % (0-2); Eosinophils Percent Auto 0.4 % (2-4); Hematocrit 38.5 % (41-53); Hemoglobin 12.6 g/dL (13.5-17.5); Lymphocytes Percent Auto 4.7 % (25-40); Mean Corpuscular HGB Conc 32.7 % (30-36); Mean Corpuscular Hemoglobin 30.5 PG (26-34); Mean Corpuscular Volume 93.1 fL (80-100); Monocytes Percent Auto 9.7 % (3-14); Neutrophils Absolute Auto 15800 /uL (3000-5900); Neutrophils Percent Auto 84.5 % (50-75); Platelet Count 353 X10^3/uL (150-400); Red Blood Cell Count 4.14 X10^6/uL (4.5-5.9); Red Cell Distribution Width 15.1 % (11.6-14.8); White Blood Cell Count 18.7 X10^3/uL (4.5-11.0)
[2018-04-06 10:52] LABS: Procalcitonin < 0.05 ng/mL (<0.5)
[2018-04-06 11:42] LABS: Bacteria Urine None Seen
[2018-04-06 11:43] LABS: Appearance Urine UA CLEAR; Bilirubin Urine UA NEGATIVE (NEGATIVE); Color Urine UA YELLOW; Glucose Urine UA NEGATIVE (Normal); Ketones Urine UA TRACE (NEGATIVE); Leukocyte Esterase Urine UA TRACE (NEGATIVE); Nitrite Urine UA Negative (Negative); Occult Blood Urine UA 1+ (Negative); Protein Urine UA 1+ (Negative); Urobilinogen Urine UA 0.2 E.U./dL (0.2)
[2018-04-06 12:06] LABS: RBC Urine 1-5/HPF (0-5/HPF); WBC Urine 5-10/HPF (0-5/HPF)
[2018-04-06 12:07] LABS: Culture Indicated Urine Specimen Cultured; Mucus Urine 1+ (Negative); Urine Comments Microscopic Normal
--- NOTE | 2018-04-06 13:52 | PC.NURSE ---
Phone report called to HODAN Bowens for admission and continuation of care. Pt in NAD at this time. Pt will be transferred with tech via stretcher.
--- NOTE | 2018-04-06 15:37 | P.HP_ITS ---
History of Present Illness Date Patient Seen: 04/06/18 Time Patient Seen: 14:31 Chief complaint: FALL Narrative: History of present illness Patient is a 82 years of age male that is and lives with his in assisted living facility. Patient notes he has repeatedly been falling past week. It is unclear as to why this patient has suddenly been falling as often as he does. There was a recent CT of the head on a prior recent ER visit which was negative for any acute CVA. No MRI was done and follow-up. Patient denies any recent fevers and chills. No chest pain or cough or shortness of breath sensation noted. Patient is well oriented to time place person and seems to be able to answer the questions posed regarding his state of health in the past week. Patient History Medical History CHF (congestive heart failure) (Acute) Colon cancer (Acute) Coronary artery disease (Acute) Hyperlipidemia (Acute) Hypertension (Acute) Polymyalgia rheumatica (Acute) Family & Social History Social History: household members spouse Prior Living Arrangements Assisted Living Safety & Behavioral: Feels Safe in Current Yes Environment Been Physically Hurt or No Threatened By a Person Suicidal Ideation Description None Suicide Plan Description No Plan Tobacco & Substance use: Smoking Status Former smoker alcohol intake former alcohol intake frequency 0-2 drinks per day Substance Use Type does not use Comment: Social history Patient lives in assisted living facility with his Stop smoking in 1959 No alcoholism Surgical history Colon resection for colon cancer in year 1999 Family history Mother with colon cancer at 72 years of age Meds Home Medications Medication Instructions Recorded Confirmed Type Lactobacillus acidophilus 2 cap PO BID 12/14/17 04/01/18 History [Acidophilus] acetaminophen 2 tab PO Q4H PRN 12/14/17 04/01/18 History acetaminophen 500 mg PO QID 12/14/17 04/01/18 History ascorbic acid (vitamin C) [Vitamin 500 mg PO BID 12/14/17 04/01/18 History C] aspirin 81 mg PO DAILY 12/14/17 04/01/18 History cholecalciferol (vitamin D3) 1 tab PO DAILY 12/14/17 04/01/18 History [Vitamin D3] cyanocobalamin (vitamin B-12) 1 tab PO DAILY 12/14/17 04/01/18 History [Vitamin B-12] diclofenac sodium 1 applic TOPICAL TID 12/14/17 04/01/18 History hydrocodone-acetaminophen 0.5 tab PO QAM 12/14/17 04/01/18 History loperamide 2 mg PO Q6H PRN 12/14/17 04/01/18 History mesalamine 2 tab PO DAILY 12/14/17 04/01/18 History metoprolol tartrate 1 tab PO BID 12/14/17 04/01/18 History multivitamin 1 tab PO DAILY 12/14/17 04/01/18 History ondansetron 4 mg PO Q4H PRN 12/14/17 04/01/18 History psyllium seed (sugar) [Reguloid] 1 scoop/day PO DAILY 12/14/17 04/01/18 History sertraline 25 mg PO DAILY 12/14/17 04/01/18 History sodium chloride [Saline Mist] 1 spray INTRANASAL QID 12/14/17 04/01/18 History tamsulosin 0.4 mg PO DAILY 12/14/17 04/01/18 History Allergies Allergy/AdvReac Type Severity Reaction Status Date / Time No Known Drug Allergies Allergy Verified 04/01/18 15:53 Review of Systems Review of Systems A 10 point system reviewed with patient was negative except for the symptoms as described which is frequent falling. Exam Vital Signs (past 8 hours): - 04/06/18 09:05 04/06/18 10:00 04/06/18 11:00 Temperature 97.6 F Pulse Rate 74 59 L 101 H Respiratory Rate 14 Blood Pressure 142/95 H Blood Pressure [Left Arm] Blood Pressure [Right Arm] 133/66 125/76 Pulse Oximetry 99 99 04/06/18 12:00 04/06/18 13:01 04/06/18 13:54 Temperature Pulse Rate 117 H 104 H 109 H Respiratory Rate 25 H 18 18 Blood Pressure 131/70 Blood Pressure [Left Arm] 143/72 H Blood Pressure [Right Arm] 135/66 Pulse Oximetry 98 100 100 04/06/18 14:00 Temperature 99.1 F Pulse Rate 127 H Respiratory Rate 14 Blood Pressure 142/65 H Blood Pressure [Left Arm] Blood Pressure [Right Arm] Pulse Oximetry 100 Oxygen Delivery Method Room Air Oxygen Flow Rate 0 Narrative Exam Narrative: General appearance Patient is awake and alert. Patient is smiling no apparent distress Psychiatric oriented to time place and person. Mood is pleasant affect is appropriate Skin no rashes or lesions nonjaundiced turgor is normal Eyes pupils are equal round and reactive to light Ears nose and throat hearing grossly intact no septum to midline no bleeding no oropharyngeal lesions noted Respiratory fairly good breath sounds are noted no wheezes no crackles Cardiovascular regular rate rhythm no murmurs noted PMI nondisplaced +3 pulses to extremities GI soft nontender positive bowel sounds no pedal splenomegaly no bruits Neurologic no focal neurologic changes cranial nerves 2-12 grossly intact no resting tremors noted Musculoskeletal 5/5 motor strength no clubbing noted range of motion appears normal Lymph nodes no lymphadenopathy to neck or axilla Objective Labs Result Diagrams: 04/06/18 10:04/06/18 10:17 Labs: Laboratory Results - last 24 hr 04/06/18 04/06/18 04/06/18 10: 10:17 10:17 WBC 18.7 H RBC 4.14 L Hgb 12.6 L Hct 38.5 L MCV 93.1 MCH 30.5 MCHC 32.7 RDW 15.1 H Plt Count 353 Neut % (Auto) 84.5 H Lymph % (Auto) 4.7 L [place] % (Auto) 9.7 Eos % (Auto) 0.4 L Baso % (Auto) 0.7 Neut # (Auto) 53287 H PT 11.8 INR 1.1 APTT 30 D Sodium Potassium Chloride Carbon Dioxide BUN Creatinine Estimated GFR BUN/Creatinine Ratio Glucose Lactate Calcium Total Bilirubin Procalcitonin < 0.05 Urine Color Urine Appearance Urine pH Ur Specific [place] Urine Protein Urine Glucose (UA) Urine Ketones Urine Occult Blood Urine Nitrate Urine Bilirubin Urine Urobilinogen Ur Leukocyte Esterase Urine RBC Urine WBC Urine Bacteria Urine Mucus Ur Culture Indicated? Micro UA Comment 04/06/18 04/06/18 04/06/18 10:17 10:17 11:30 WBC RBC Hgb Hct MCV MCH MCHC RDW Plt Count Neut % (Auto) Lymph % (Auto) [place] % (Auto) Eos % (Auto) Baso % (Auto) Neut # (Auto) PT INR APTT Sodium 141 Potassium 4.2 Chloride 106 Carbon Dioxide 27 BUN 16 Creatinine 0.80 Estimated GFR > 60.0 BUN/Creatinine Ratio 20.0 Glucose 107 Lactate 1.4 Calcium 8.5 Total Bilirubin 0.5 Procalcitonin Urine Color Yellow Urine Appearance Clear Urine pH 5.0 Ur Specific [place] 1.020 Urine Protein 1+ H Urine Glucose (UA) Negative Urine Ketones Trace H Urine Occult Blood 1+ H Urine Nitrate Negative Urine Bilirubin Negative Urine Urobilinogen 0.2 Ur Leukocyte Esterase Trace H Urine RBC 1-5/hpf Urine WBC 5-10/hpf H Urine Bacteria None seen Urine Mucus 1+ H Ur Culture Indicated? Specimen cultured Micro UA Comment Microscopic normal Assessment & Plan Plan: Assessment/Plan Narrative: Gait disturbance and frequent falls Admitted to [facility] floor observation status Unclear etiology. Requesting a noncontrast MRI the brain further investigate for possible stroke that might not have been disclosed previous recent CT of the head Physical therapy and occupational therapy consult requested Orthostatic blood pressure and pulse rate q.4 hours while awake ASHD and HTN history Continue cardiac meds as tolerated. HLD Continue statin Polymyalgia Rheumatica Contineu analgesics prn. Time Spent With Patient Time with patient: Greater than 35 minutes (55 min) Quality VTE Deep Vein Thrombosis/Pulmonary Embolism Present on Admission: No
--- NOTE | 2018-04-06 17:58 | PC.NURSE ---
ADMISSION received pt at change of shift. slightly sleepy but easily arousable. [place], Ox3, pleasant and cooperative. TATE with generalized weakness, pt favor R shoulder, states pain rated 7/10. orthrostatic BP done with p laying and assisted sitting, as pt unable to stand. MRI completed. telemetry monitoring shows afib with rate in 110-130's. pt declined dinner, denies nausea or vomiting, pt seems to prefer eating sweets as he only wanted to eat chocolate chip cookies.
[2018-04-06] MEDS: SODIUM CHLORIDE 0.9% 1,000 ML 125 ML IV (19:03)
[2018-04-07] VITALS (12 sets, daily range): BP systolic 130–158; BP diastolic 57–119; PULSE 80–127; RESP 16–24; TEMP 36.7–37.9; O2SAT 95–100
--- NOTE | 2018-04-07 | DI.ECHO.S_ITS ---
[facility] +---------+ : : [address] [place] : : : : [id number] : : : : Phone: [phone] Echocardiogram Report + + :Name: HUONG DELATORRE Study Date: 04/08/2018 Height: 66 in : :[facility] Weight: 150 lb : : Gender: Male BSA: 1.8 m2 : :: 1935 Age: 82 yrs BP: 142/65 mmHg: :Reason For Study: Atrial fibrillation : :Ordering Physician: Dr. Lees : :Scar Performed By: Amber Parham : :Referring: MOHIT CARBALLO : + + Interpretation Summary The ejection fraction is estimated to be 60-65%. There is no significant valvular heart disease. Procedure: A two-dimensional transthoracic echocardiogram with color flow and Doppler was performed. The study quality was technically adequate. Comparison is made with the echocardiogram of 06-20-13. The patient was in atrial fibrillation with heart rates between 99-126 bpm during the exam. Left Ventricle: The left ventricle is normal in size, wall thickness, and systolic function without any focal wall motion abnormalities. The ejection fraction is estimated to be 60-65%. Diastolic function could not be accurately assessed due to atrial fibrillation. Right Ventricle: The right ventricle grossly appears normal in size with probable normal systolic function. Atria: The left atrium is mildly dilated. The right atrium grossly appears normal in size. Mitral Valve: The mitral valve is normal in structure and function. There is no mitral regurgitation noted. Aortic Valve: The aortic valve opens well. No aortic regurgitation is present. Tricuspid Valve: The tricuspid valve is normal in structure and function. No tricuspid regurgitation. Pulmonic Valve: The pulmonic valve is normal in structure and function. There is no pulmonic valvular regurgitation. Great Vessels: The aortic root is normal size. The ascending aorta is at the upper limits of normal in size. The inferior vena cava was not visualized. Pericardium/ Pleura There is no pericardial effusion. There is no pleural effusion. MMode/2D Measurements & Calculations LVIDd: 2.7 cm Ao root diam: 3.7 cm LVIDs: 1.9 cm Aortic Jxn: 2.3 cm FS: 29.6 % asc Aorta Diam: 3.7 cm IVSd: 0.73 cm Ao Arch Diam (Prox Trans): 2.8 cm LVPWd: 0.65 cm LV joseph. diameter/BSA (cm/m^2): 1.5 LV sys. diameter/BSA (cm/m^2): 1.1 LA dimension: 4.1 cm Doppler Measurements & Calculations Ao V2 max: 151.0 cm/sec MV E max serge: 74.0 cm/sec Ao V2 mean: 96.6 cm/sec MV A max serge: 88.1 cm/sec Ao max P.1 mmHg MV E/A: 0.84 Ao mean P.4 mmHg MV dec time: 0.31 sec Ao V2 VTI: 25.2 cm MV P1/2t: 92.7 msec PA V2 max: 97.1 cm/sec MV P1/2t max serge: 74.6 cm/sec PA V2 mean: 56.0 cm/sec MVA(P1/2t): 2.4 cm2 PA mean P.6 mmHg Reading Physician:05:09 PM
--- NOTE | 2018-04-07 02:17 | PC.NURSE ---
Called Dr. Dutta around 0135 and given result of pts. orthostatic B/P Lying-145/72, HR-101, Sitting-158/119, Standing-111/68, HR-140. Dr. Dutta asked if pt. has taken any beta joshua or had missed a dose of his beta joshua. Pt. has no current order of beta joshua but upon looking at his medication list, it appears that the pt. does take Metoprolol 1 tab. bid but no dosage was listed. Pt's. med list was last reconciled on Apr.06. Dr. Dutta asked to contact [facility] to get an accurate dosage of pts. medication. Called [facility] and a list of pts. meds will be faxed to our facility. Awaiting med list in fax and will reconcile pts. meds so Dr. Dutta can order the right dosage of pts. routine meds.
--- NOTE | 2018-04-07 06:18 | PC.NURSE ---
Received fax med list from [facility] and pts. med. reconciliation updated.
[2018-04-07 06:20] LABS: Add Manual Diff / Slide Review NO; Basophils Percent Auto 0.8 % (0-2); Eosinophils Percent Auto 0.2 % (2-4); Hemoglobin 11.6 g/dL (13.5-17.5); Lymphocytes Percent Auto 8.2 % (25-40); Mean Corpuscular HGB Conc 33.1 % (30-36); Mean Corpuscular Volume 93.4 fL (80-100); Monocytes Percent Auto 15.8 % (3-14); Neutrophils Absolute Auto 12400 /uL (3000-5900); Platelet Count 291 X10^3/uL (150-400); Red Blood Cell Count 3.75 X10^6/uL (4.5-5.9); White Blood Cell Count 16.6 X10^3/uL (4.5-11.0)
[2018-04-07 06:33] LABS: Alanine Aminotransferase 24 IU/L (21-72); Albumin 2.6 g/dL (3.5-5.0); Albumin Globulin Ratio 0.9 (1.0-2.8); Alkaline Phosphatase 83 U/L (38-126); Aspartate Aminotransferase 12 IU/L (17-59); BUN Creatinine Ratio 17.1 (6-22); Bilirubin Total 0.7 mg/dL (0.2-1.3); Blood Urea Nitrogen 12 mg/dL (9-20); Carbon Dioxide 24 mmol/L (22-32); Chloride 111 mmol/L (98-107); Estimated Glomerular Filt Rate > 60.0 mL/min (>60); Globulin 2.8 g/dL (1.7-4.1); Glucose 87 mg/dL (80-110); HEMOLYSIS < 15 (0-50); Sodium 142 mmol/L (137-145); Total Protein 5.4 g/dL (6.3-8.2)
[2018-04-07 07:02] LABS: C-Reactive Protein Quant 5.7 mg/dL (<1.0)
[2018-04-07 07:21] LABS: Procalcitonin < 0.05 ng/mL (<0.5)
[2018-04-07 07:26] LABS: Erythrocyte Sedimentation Rate 24 MM/HR (0-15)
--- NOTE | 2018-04-07 09:10 | PT.IIE ---
Surgical History (Last Updated 04/06/18 @ 17:55 by Renetta Piedra RN) H/O total hip arthroplasty (Acute) History of colon resection (Acute) Medical History (Last Updated 04/06/18 @ 17:55 by Renetta Piedra RN) Cataract (Acute) CHF (congestive heart failure) (Acute) Colon cancer (Acute) Coronary artery disease (Acute) Hyperlipidemia (Acute) Hypertension (Acute) Polymyalgia rheumatica (Acute) Physical Therapy Inpatient Evaluation/Re-Eval M1 PT/OT-IP Prior Functional Status Start: 04/07/18 09:17 Freq: Status: Active Protocol: Document 04/07/18 09:10 [facility] (Rec: 04/07/18 09:25 [facility] [id number]) Medical Review Prior Functional Status Medical History Reviewed Yes Mobility and Gait modified indep. gait with walker indoors Activities of Daily Living and IADL's some assistance with ADLs Social History Household Members spouse Living Arrangements Assisted Living Additional Social History Comment Resides @ [facility] with . Brain MRI, chest and R shoulder radiograph negative for acute findings. 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 M2 PT-IP Current Condition Start: 04/07/18 09:17 Freq: Status: Active Protocol: Document 04/07/18 09:10 [facility] (Rec: 04/07/18 09:25 [facility] [id number]) Physical Therapy Current Condition Current Condition Evaluation Date 04/07/18 Treatment Diagnosis frequent falls, gait disturbance, impaired activity tolerance M3 PT-IP Subjective Start: 04/07/18 09:17 Freq: Status: Active Protocol: Document 04/07/18 09:10 [facility] (Rec: 04/07/18 09:25 [facility] [id number]) Subjective Physical Therapy Visit Type Type Initial Evaluation Visit Start Time 08:40 Visit Stop Time 09:10 Total Visit Minutes 30 Number of MARBLE MASON Visits 0 Physical Therapy Visit Comments Patient Comments pt c/o R shoulder pain, wants to talk to the MD about where he will go from here. Patient Goals decrease pain. Therapy Pain Assessment Pain Present Pain Present Pain Reported Location Right Shoulder Scale Used does not rate Pain Management Techniques Apply Heat Modification of Treatment M4 PT-IP Mobility and Gait Start: 04/07/18 09:17 Freq: Status: Active Protocol: Document 04/07/18 09:10 [facility] (Rec: 04/07/18 09:25 [facility] [id number]) PT-Bed Mobility Assessment Supine to Sit Supine to Sit Moderate Assistance 1 Person Assistance Sit to Supine Sit to Supine Maximum Assistance 1 Person Assistance Scooting Scooting to Edge of Bed Moderate Assistance PT-Transfer Assessment Sit to and From Stand Sit to and from Stand Moderate Assistance 1 Person Assistance Use of Upper Extremities Equipment Transfer Assistive Device Gait Belt Front Wheeled Walker Transfers Transfer Destination Bed Transfer Technique Lateral Scoot Transfer Ability Level of Assist Minimal Assistance 1 Person Assistance Comments Mobility Comments Pt stood @ EOB, marching in place x5 steps each LE. AGILE JAVA DEVELOPER into room, reports pt's HR up to 150s. Pt stepped/scooted laterally x2 steps to get an improved location M5 PT-IP Objective Assessments Start: 04/07/18 09:17 Freq: Status: Active Protocol: Document 04/07/18 09:10 [facility] (Rec: 04/07/18 10:03 [facility] [id number]) Orientation Orientation/Cognition Level of Alertness Alert Gross Range of Motion Upper Extremity ROM Impairments R shoulder flexion to 40 degrees, no movement of R scapula with attempted ROM Lower Extremity ROM Impairments limited DF bilaterally Strength Upper Extremity Strength Shoulder R shoulder not tested due to pain Lower Extremity Strength Hip flexion: L 4/5, R4-/5 Knee flexion: L 5/5, R 4/5; extension: L 5/5, R 5/5 Ankle DF: L 5/5, R 4/5 Sensation Assessment Sensation Gross Sensation WNL Muscle Tone Muscle Tone WNL Yes M7 PT-IP Assessment and Plan Start: 04/07/18 09:17 Freq: Status: Active Protocol: Document 04/07/18 09:10 [facility] (Rec: 04/07/18 10:03 [facility] [id number]) PT Summary Assessment and Plan Potential Rehabilitation Potential Good Status of Condition at Evaluation Unstable Summary Impairments Pain ROM Strength Balance Bed Mobility Transfers Gait Activity Tolerance Assessment Summary Session limited due to tachycardia with standing and marching at edge of bed. Pt appears to have some RLE weakness in hip and knee flexion, and ankle DF, but pt reports this is his normal. R shoulder concerning with tenderness to palpation in lower trap, rhomboids, medial border of scapula and tenderness at the mid thoracic spine. Pt not actively moving scapula with attempted R shoulder movement, and severely restricted with elevation. Pt requires assistance with all mobility, and at this point cannot tolerate any OOB activity due to poor tolerance and elevated HR. Pt is not safe to return home at this point, therefore the d/c disposition requires further assessment as pt improves clinically. If pt is not back to prior level of function and [facility] cannot provide adequate assistance, recommend SNF rehabilitation for pt to get back to baseline mobility. He has a h/o frequent falls, and remains a high risk for falls. Goals Bed Mobility Goal Contact Guard Assistance Transfer Goal Contact Guard Assistance Gait Goal Contact Guard Assistance Gait Distance 50 Days to Meet Goals 3 Frequency of Treatment Frequency Of Treatment Twice a Day Treatment Plan Physical Therapy Treatment Plan Bed Mobility Training Transfer Training Gait Training Therapeutic Exercise Balance Retraining Hot or Cold Pack Neuromuscular Re-ed Manual Therapy Recommendations To Nursing Amount of Assist Needed 2 Person Assist Discharge Recommendations PT Discharge Recommendations SNF Rehab
[2018-04-07] MEDS: DOCUSATE 100 MG CAPSULE PO ×2 (09:53→21:30)
[2018-04-07] MEDS: dilTIAZem 30 MG TABLET 60 MG PO ×3 (09:53→21:30)
[2018-04-07] MEDS: ENOXAPARIN 40 MG/0.4 ML SYRINGE SUBCUT (09:53)
[2018-04-07 10:00] LABS: Troponin I < 0.012 ng/mL (0.01-0.034)
--- NOTE | 2018-04-07 11:00 | OT.IP.TRT ---
Occupational Therapy Treatment Note M3 OT- IP Subjective and Pain Start: 04/07/18 10:58 Freq: Status: Active Protocol: Document 04/07/18 10:58 [facility] (Rec: 04/07/18 10:59 [facility] [id number]) OT- Subjective Occupational Therapy Visit Type Type Administrative Note Notes Pt having high BP this AM while standing, therefore to hold off on OT eval til tomorrow when pt more medically stable.
--- NOTE | 2018-04-07 11:31 | PC.NURSE ---
Addendum entered by Mirta Hogan R.N. 04/07/18 11:57: Unable to get orthostatic BPs on patient as his heart rate went up when getting out of bed. Original Note: Assess: Pts heart rate up to 170s after trying to get up and and ambulate with physical therapy. Pt is A&Ox3 and denies pain. He complains of being a bit dizzy and family states that this has been going on for a few years. He does squint with his r.eye and states that this helps him see a bit more clear. Pt is also a bit sob at times but is 98-99% on ra. aware of situation and EKG obtained, which showed AFIB RVR per MD. He also ordered Cardizem 60mg tid, which has been given. Pts heart rate better between 90s- and 115. Family into see patient and he is comfortable at this time. Lovenox and stool softner also given. (Note time 0830).
[2018-04-07 12:33] LABS: Troponin I < 0.012 ng/mL (0.01-0.034)
--- NOTE | 2018-04-07 14:26 | CM.DANOTE ---
Discharge Planning/Care Management CM Discharge Assessment Start: 04/07/18 14:09 Freq: Status: Active Protocol: Document 04/07/18 14:09 (Rec: 04/07/18 14:25 [id number]) Discharge Planning Assessment Assigned Family Preservation Caseworker VALENCIA Chang Advance Directives? Yes Advance Directives on File Yes: states they are on file here at the hospital History Provided By Patient Has Patient been admitted in last 30 No days? Comment ER visit on 04/01/18 Prior Living Arrangements Assisted Living Comment Lives at [facility] with spouse. Household Members spouse Type of transporation used prior to Relies on Others admit Facility Name Admitted From: [facility] Willing to Return to Facility? Yes Independent with ADL's Yes: with walker Is patient alert and oriented? Yes Needs Assistance With Bathing Grooming Meal Prep Toileting Managing Medications Comment Per [facility]: Patient declines assistance with most things but has been needing more assistance this past month. Caregiver for Another No DME Already Rented / Owned FWW / Walker Cane Patient/Family Preference [facility] Home with Home Health Comment SNF vs [facility] w/ HH Barriers to Discharge Yes Comment OBS status but with [facility]. Should patient require SNF he will need a SNF auth. Discharge Plan [facility] Facility Referrals Initiated None needed Medicare Choice List Provided Yes SNF/HH Preference No decisions made. Whiteboard Updated in Patient Room with Yes name and ext. # of Family Preservation Caseworker Review Status In Process Please Provide Date Initial DC 04/07/18 Assessment Was Performed Next Review Type Continued Stay Review Reviewed EMR: Patient currently in OBS status and has [facility]. Patient is a resident of [facility] and resides with his on a 2nd floor apartment. Called [facility]: patient does not allow staff to assist him with many options however he has required more assistance this past month. Patient does have a walker that he does not use in his apartment as often as he should. Patient is a 1 person assist but does not allow staff to help. [facility] would appreciate it if patient would allow staff to assist more often or even HH or SNF. [facility] does not believe spouse will agree to SNF. Met with patient: patient was sleeping but awoke to voice. Patient would like to discharge home with [facility] but is agreeable to SNF if doctors agrees it is needed. Provided patient Medicare Choice List and discussed insurance requirements and auth needs. Patient believes he has the coverage and means to pay for SNF if needed. [facility] is at [facility] coverage? Possible long-term care insurance. Patient attempted to work with PT and OT but limited due to high BP while standing. Plan: Pending. Patient's medical needs remain unclear at this time. SW to follow to better assist with DCP.
[2018-04-07 14:39] LABS: TSH w/ Reflex to FT4 5.32 uIU/mL (0.47-4.68)
[2018-04-07 15:06] LABS: Free T4, Direct Thyroxine 1.34 ng/dL (0.78-2.19)
--- NOTE | 2018-04-07 15:56 | PT.IPTN ---
Physical Therapy Treatment Note M2 PT-IP Current Condition Start: 04/07/18 09:17 Freq: Status: Active Protocol: Document 04/07/18 15:56 [facility] (Rec: 04/07/18 16:03 [facility] [id number]) Physical Therapy Current Condition Current Condition Evaluation Date 04/07/18 Treatment Diagnosis frequent falls, gait disturbance, impaired activity tolerance M3 PT-IP Subjective Start: 04/07/18 09:17 Freq: Status: Active Protocol: Document 04/07/18 15:56 [facility] (Rec: 04/07/18 16:03 [facility] [id number]) Subjective Physical Therapy Visit Type Type Treatment Note Visit Start Time 15:30 Visit Stop Time 15:56 Total Visit Minutes 26 Number of MEDICAL INSURANCE VERIFIER Visits 0 Physical Therapy Visit Comments Patient Comments Pt agreeable to get up. M4 PT-IP Mobility and Gait Start: 04/07/18 09:17 Freq: Status: Active Protocol: Document 04/07/18 15:56 [facility] (Rec: 04/07/18 16:03 [facility] [id number]) PT-Bed Mobility Assessment Supine to Sit Supine to Sit Moderate Assistance 2 Person Assistance Sit to Supine Sit to Supine Maximum Assistance 1 Person Assistance Scooting Scooting to Edge of Bed Moderate Assistance Scooting Up and Down in Bed Dependent PT-Transfer Assessment Sit to and From Stand Sit to and from Stand Moderate Assistance 1 Person Assistance Use of Upper Extremities Equipment Transfer Assistive Device Gait Belt Front Wheeled Walker Transfer Ability Level of Assist Moderate Assistance Comments Mobility Comments BP supine: 144/73, GA 94 bpm BP sittin/57, GA 113 bpm (no dizziness) BP standin/42, GA 133 bpm (no dizziness but pt reports that he needs to sit) M5 PT-IP Objective Assessments Start: 04/07/18 09:17 Freq: Status: Active Protocol: Document 04/07/18 09:10 [facility] (Rec: 04/07/18 10:03 [facility] [id number]) Orientation Orientation/Cognition Level of Alertness Alert Gross Range of Motion Upper Extremity ROM Impairments R shoulder flexion to 40 degrees, no movement of R scapula with attempted ROM Lower Extremity ROM Impairments limited DF bilaterally Strength Upper Extremity Strength Shoulder R shoulder not tested due to pain Lower Extremity Strength Hip flexion: L 4/5, R4-/5 Knee flexion: L 5/5, R 4/5; extension: L 5/5, R 5/5 Ankle DF: L 5/5, R 4/5 Sensation Assessment Sensation Gross Sensation WNL Muscle Tone Muscle Tone WNL Yes M7 PT-IP Assessment and Plan Start: 04/07/18 09:17 Freq: Status: Active Protocol: Document 04/07/18 15:56 [facility] (Rec: 04/07/18 16:03 [facility] [id number]) PT Summary Assessment and Plan Summary Progress Towards Goals Slow Progress due to Medical Issues Assessment Summary Pt unable to perform gait or transfer due to tachycardia and fatigue. This session was timed to be performed after pt given medication for GA, which his GA was less this session but still elevated. At this time, pt is not safe to return home, as he is unable to tolerate gait or transfers due to fatigue. His BP indicates an orthostatic drop, but no c/o dizziness. Goals Bed Mobility Goal Contact Guard Assistance Transfer Goal Contact Guard Assistance Gait Goal Contact Guard Assistance Gait Distance 50 Days to Meet Goals 3 Frequency of Treatment Frequency Of Treatment Twice a Day Treatment Plan Physical Therapy Treatment Plan Bed Mobility Training Transfer Training Gait Training Therapeutic Exercise Balance Retraining Hot or Cold Pack Neuromuscular Re-ed Manual Therapy Other Recommendations and Next Treatment check BP Focus Recommendations To Nursing Amount of Assist Needed 2 Person Assist Discharge Recommendations PT Discharge Recommendations SNF Rehab
--- NOTE | 2018-04-07 16:49 | PM.PN.1 ---
Subjective Date Patient Seen: 04/07/18 Time Patient Seen: 06:55 Interval history: History of present illness Follow-up on patient with recent gait disturbance and found to have a rapid AFib in a.m. today Patient started on diltiazem 60 mg p.o. t.i.d. 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 Review of system No specific complaints no chest pain or shortness of breath no nausea Exam Vital Signs (past 8 hours): - 04/07/18 11:21 04/07/18 13:00 04/07/18 15:35 Temperature 98.9 F 99.4 F Pulse Rate 80 100 H Pulse Rate [Orthostatic Lying] Pulse Rate [Orthostatic Sitting] Pulse Rate [Orthostatic Standing] Respiratory Rate 16 18 Blood Pressure 132/59 L 143/71 H Blood Pressure [Orthostatic Lying] Blood Pressure [Orthostatic Sitting] Blood Pressure [Orthostatic Standing] Pulse Oximetry 99 95 97 04/07/18 15:45 Temperature Pulse Rate Pulse Rate [Orthostatic Lying] 94 H Pulse Rate [Orthostatic Sitting] 113 H Pulse Rate [Orthostatic Standing] 94 H Respiratory Rate Blood Pressure Blood Pressure [Orthostatic Lying] 144/73 H Blood Pressure [Orthostatic Sitting] 131/57 L Blood Pressure [Orthostatic Standing] 144/73 H Pulse Oximetry Oxygen Delivery Method Room Air Oxygen Flow Rate 0 Narrative Exam Narrative: General appearance no apparent distress patient is awake Psychiatric well oriented to time place and person mood is pleasant patient is cooperative Respiratory fairly clear to auscultation no wheezes no crackles Cardiovascular regular rate and rhythm this morning early before onset of the AFib +3 pulses noted to extremities GI fairly benign soft nontender positive bowel sounds no bruits Neurologic no focal neurologic changes cranial nerves 2-12 grossly intact Objective Labs Result Diagrams: 04/07/18 05:58 04/07/18 05:58 Labs: Laboratory Results - last 24 hr 04/06/18 04/07/18 04/07/18 10:10 05:58 05:58 WBC 16.6 H RBC 3.75 L Hgb 11.6 L Hct 35.0 L MCV 93.4 MCH 31.0 MCHC 33.1 RDW 15.0 H Plt Count 291 Neut % (Auto) 75.0 Lymph % (Auto) 8.2 L [place] % (Auto) 15.8 H Eos % (Auto) 0.2 L Baso % (Auto) 0.8 Neut # (Auto) 35388 H ESR Sodium 142 Potassium 4.0 Chloride 111 H Carbon Dioxide 24 BUN 12 Creatinine 0.70 Estimated GFR > 60.0 BUN/Creatinine Ratio 17.1 Glucose 87 Calcium 8.0 L Total Bilirubin 0.7 AST 12 L ALT 24 Alkaline Phosphatase 83 Troponin I C-Reactive Protein Total Protein 5.4 L Albumin 2.6 L Globulin 2.8 Albumin/Globulin Ratio 0.9 L Procalcitonin TSH 5.32 H Free T4 1.34 04/07/18 04/07/18 04/07/18 05:58 05:58 05:58 WBC RBC Hgb Hct MCV MCH MCHC RDW Plt Count Neut % (Auto) Lymph % (Auto) [place] % (Auto) Eos % (Auto) Baso % (Auto) Neut # (Auto) ESR 24 H Sodium Potassium Chloride Carbon Dioxide BUN Creatinine Estimated GFR BUN/Creatinine Ratio Glucose Calcium Total Bilirubin AST ALT Alkaline Phosphatase Troponin I C-Reactive Protein 5.7 H Total Protein Albumin Globulin Albumin/Globulin Ratio Procalcitonin < 0.05 TSH Free T4 04/07/18 04/07/18 09:25 12:00 WBC RBC Hgb Hct MCV MCH MCHC RDW Plt Count Neut % (Auto) Lymph % (Auto) [place] % (Auto) Eos % (Auto) Baso % (Auto) Neut # (Auto) ESR Sodium Potassium Chloride Carbon Dioxide BUN Creatinine Estimated GFR BUN/Creatinine Ratio Glucose Calcium Total Bilirubin AST ALT Alkaline Phosphatase Troponin I < 0.012 < 0.012 C-Reactive Protein Total Protein Albumin Globulin Albumin/Globulin Ratio Procalcitonin TSH Free T4 Assessment & Plan Plan: Assessment/Plan Narrative: New onset atrial fibrillation with rapid ventricular response Patient noted on telemetry with a rapid AFib. Ventricular response rate up to 165 initially. Patient spontaneously dropped in the pulse to 115 beats per minute. Diltiazem 60 mg po tid. Case discussed with Dr Gutiérrez Stull Hewer who agrees with diltiazem choice. Route and dosing. Echocardiogram 2D requested. TSH with reflex T4 requested Gait disturbance and frequent falls Admitted to [facility] floor observation status and converted to inpatient on 04/07 Unclear etiology to these gait disturbances. 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 HLD Continue statin Polymyalgia Rheumatica Contineu analgesics prn. Time Spent With Patient Time with patient: 25 - 35 minutes (30 min) Quality VTE Deep Vein Thrombosis/Pulmonary Embolism Present on Admission: No
[2018-04-07] MEDS: ACETAMINOPHEN 325 MG TABLET 650 MG PO (17:00)
[2018-04-07] MEDS: SODIUM CHLORIDE 0.9% 1,000 ML 125 ML IV (18:54)
[2018-04-07] MEDS: SENNOSIDES 8.6 MG TABLET 17.2 MG PO (21:30)
[2018-04-08] VITALS (11 sets, daily range): BP systolic 112–154; BP diastolic 54–90; PULSE 79–117; RESP 16–26; TEMP 36.2–37.1; O2SAT 94–99
[2018-04-08] MEDS: ACETAMINOPHEN 325 MG TABLET 650 MG PO ×2 (01:51→12:10)
[2018-04-08] MEDS: SODIUM CHLORIDE 0.9% 1,000 ML 125 ML IV ×3 (02:37→18:45)
[2018-04-08 06:36] LABS: Add Manual Diff / Slide Review NO; Basophils Percent Auto 0.7 % (0-2); Eosinophils Percent Auto 0.6 % (2-4); Hematocrit 35.5 % (41-53); Hemoglobin 11.7 g/dL (13.5-17.5); Lymphocytes Percent Auto 7.3 % (25-40); Mean Corpuscular Hemoglobin 31.1 PG (26-34); Mean Corpuscular Volume 94.4 fL (80-100); Monocytes Percent Auto 14.6 % (3-14); Neutrophils Absolute Auto 13200 /uL (3000-5900); Neutrophils Percent Auto 76.8 % (50-75); Platelet Count 268 X10^3/uL (150-400); Red Blood Cell Count 3.76 X10^6/uL (4.5-5.9); Red Cell Distribution Width 14.9 % (11.6-14.8); White Blood Cell Count 17.2 X10^3/uL (4.5-11.0)
[2018-04-08 06:45] LABS: Alanine Aminotransferase 25 IU/L (21-72); Albumin 2.6 g/dL (3.5-5.0); Albumin Globulin Ratio 0.9 (1.0-2.8); Alkaline Phosphatase 90 U/L (38-126); Aspartate Aminotransferase 13 IU/L (17-59); Bilirubin Total 0.7 mg/dL (0.2-1.3); Blood Urea Nitrogen 9 mg/dL (9-20); Carbon Dioxide 23 mmol/L (22-32); Chloride 110 mmol/L (98-107); Estimated Glomerular Filt Rate > 60.0 mL/min (>60); Globulin 2.8 g/dL (1.7-4.1); Glucose 101 mg/dL (80-110); HEMOLYSIS < 15 (0-50); Potassium 3.6 mmol/L (3.4-5.1); Sodium 143 mmol/L (137-145); Total Protein 5.4 g/dL (6.3-8.2)
[2018-04-08] MEDS: ENOXAPARIN 40 MG/0.4 ML SYRINGE SUBCUT (09:30)
[2018-04-08] MEDS: dilTIAZem 30 MG TABLET 60 MG PO ×3 (09:30→20:41)
--- NOTE | 2018-04-08 09:53 | PT.IPTN ---
Current Diagnoses Unspecified atrial fibrillation (04/07/18) Physical Therapy Treatment Note M2 PT-IP Current Condition Start: 04/07/18 09:17 Freq: Status: Active Protocol: Document 04/07/18 15:56 [facility] (Rec: 04/07/18 16:03 [facility] [id number]) Physical Therapy Current Condition Current Condition Evaluation Date 04/07/18 Treatment Diagnosis frequent falls, gait disturbance, impaired activity tolerance M3 PT-IP Subjective Start: 04/07/18 09:17 Freq: Status: Active Protocol: Document 04/08/18 09:47 [facility] (Rec: 04/08/18 09:53 [facility] [id number]) Subjective Physical Therapy Visit Type Type Treatment Note Visit Start Time 09:15 Visit Stop Time 09:40 Total Visit Minutes 25 Number of SKI BINDING FITTER AND REPAIRER Visits 0 Physical Therapy Visit Comments Patient Comments Pt agrees to get up and notes he will need changing. Reports he has had trouble d/t R shoulder pain. Therapy Pain Assessment Pain Present Pain Present Pain Reported Location Right Shoulder Scale Used does not rate M4 PT-IP Mobility and Gait Start: 04/07/18 09:17 Freq: Status: Active Protocol: Document 04/08/18 09:47 [facility] (Rec: 04/08/18 09:53 [facility] [id number]) PT-Bed Mobility Assessment Supine to Sit Supine to Sit Moderate Assistance 1 Person Assistance Scooting Scooting to Edge of Bed Moderate Assistance PT-Transfer Assessment Sit to and From Stand Sit to and from Stand Moderate Assistance 1 Person Assistance Use of Upper Extremities Equipment Transfer Assistive Device Gait Belt Front Wheeled Walker Transfers Transfer Destination Chair Transfer Technique Stand Step Pivot Transfer Ability Level of Assist Moderate Assistance Comments Mobility Comments sit to stand mod A with min A to remain standing for about 2 min to maintain standing which inc to mod A d/t pt fatigueing. 2nd sit to stand mod A and mod A with FWW to transfer to chair with max cueing. HR reported to inc per tele monitor per RN. RN present to monitor after cleaning of breif d/t elevated HR BP 120/53 after standing for wiping M5 PT-IP Objective Assessments Start: 04/07/18 09:17 Freq: Status: Active Protocol: Document 04/07/18 09:10 [facility] (Rec: 04/07/18 10:03 [facility] [id number]) Orientation Orientation/Cognition Level of Alertness Alert Gross Range of Motion Upper Extremity ROM Impairments R shoulder flexion to 40 degrees, no movement of R scapula with attempted ROM Lower Extremity ROM Impairments limited DF bilaterally Strength Upper Extremity Strength Shoulder R shoulder not tested due to pain Lower Extremity Strength Hip flexion: L 4/5, R4-/5 Knee flexion: L 5/5, R 4/5; extension: L 5/5, R 5/5 Ankle DF: L 5/5, R 4/5 Sensation Assessment Sensation Gross Sensation WNL Muscle Tone Muscle Tone WNL Yes M6 PT-IP Treatment Start: 04/07/18 09:17 Freq: Status: Active Protocol: Document 04/08/18 09:47 [facility] (Rec: 04/08/18 09:53 [facility] [id number]) Physical Therapy Treatment Other Treatments Other Treatment Performed edu on importance of sitting up for at least short period of time M7 PT-IP Assessment and Plan Start: 04/07/18 09:17 Freq: Status: Active Protocol: Document 04/08/18 09:47 [facility] (Rec: 04/08/18 09:53 [facility] [id number]) PT Summary Assessment and Plan Summary Progress Towards Goals Slow Progress due to Medical Issues Assessment Summary pt cont to be limited d/t fatigue and dec overall strength with transfers. He cont to be deconditioned and will require SNF rehab before returning home to [facility] to return to prior level of function. Goals Bed Mobility Goal Contact Guard Assistance Transfer Goal Contact Guard Assistance Gait Goal Contact Guard Assistance Gait Distance 50 Days to Meet Goals 3 Frequency of Treatment Frequency Of Treatment Twice a Day Treatment Plan Physical Therapy Treatment Plan Bed Mobility Training Transfer Training Gait Training Therapeutic Exercise Balance Retraining Hot or Cold Pack Neuromuscular Re-ed Manual Therapy Other Recommendations and Next Treatment check BP & work on standing Focus tolerance Recommendations To Nursing Amount of Assist Needed 2 Person Assist Discharge Recommendations PT Discharge Recommendations SNF Rehab
--- NOTE | 2018-04-08 11:23 | OT.IP.TRT ---
Current Diagnoses Unspecified atrial fibrillation (04/07/18) Occupational Therapy Treatment Note M3 OT- IP Subjective and Pain Start: 04/07/18 10:58 Freq: Status: Active Protocol: Document 04/08/18 11:22 [facility] (Rec: 04/08/18 11:23 [facility] [id number]) OT- Subjective Occupational Therapy Visit Type Type Patient Refusal Notes Attempted OT eval, pt states too tired from doing too much and refusing OT eval at this time.
--- NOTE | 2018-04-08 12:22 | PC.NURSE ---
Addendum entered by Nimo Coto R.N. 04/08/18 14:50: Pt refused to have stool cleaned up and brief changed until he spoke to his niece Josselin. Nurse got her on the phone but he was still refusing until she arrived. Pt refusing PT, complains of head feeling like it's going to explode. Spoke with MD and obtained an order for Malcolm which was provided to patient. Original Note: Pt has had ongoing complaints today and declining to participate in therapy. He requested a catheter so that he would not need to get out of bed to urinate. Was educated about risks associated with catheter use and he stated that he understood. Ram not initiated. Pt reported to family to have his affairs in order and they stated to the nurse it seemed that he had lost his will to live. Pt declined to eat lunch tray and requested an Ensure instead. Pt reported to the nurse that this is the worst I've ever felt in my life and that he also had a headache which was treated with PO Tylenol. Provider notified of all changes and will continue to monitor.
[2018-04-08] MEDS: HYDROCODONE/ACET 5/325 TABLET 1 TAB PO (14:47)
--- NOTE | 2018-04-08 15:04 | PT.IPTN ---
Current Diagnoses Unspecified atrial fibrillation (04/07/18) Physical Therapy Treatment Note M2 PT-IP Current Condition Start: 04/07/18 09:17 Freq: Status: Active Protocol: Document 04/07/18 15:56 [facility] (Rec: 04/07/18 16:03 [facility] [id number]) Physical Therapy Current Condition Current Condition Evaluation Date 04/07/18 Treatment Diagnosis frequent falls, gait disturbance, impaired activity tolerance M3 PT-IP Subjective Start: 04/07/18 09:17 Freq: Status: Active Protocol: Document 04/08/18 15:03 [facility] (Rec: 04/08/18 15:04 [facility] [id number]) Subjective Physical Therapy Visit Type Type Patient Refusal Visit Start Time 14:45 Notes Pt reports his head feels like its going to explode. he does not feel able to participate in PT at this time and refuses and was agreeable to trying ice in conjunction with meds RN is giving him. Follow up with pt again in AM.
--- NOTE | 2018-04-08 15:22 | CM.DPC ---
DCP/continued: Reviewed chart. Spoke with Dr. Gomez in AM rounds. At this time it is anticipated that patient may need SNF prior to returning to [facility]. PT/OT evaluations pending. Anna Marie from [facility] evaluating patient this afternoon to determine if they can accept back. Patient inpatient status as of 04-07-18. Patient's primary payor is [facility]. Typically this advantage plan does not require 3 midnight inpatient stay. Placed call to [facility] spoke with admit they will review for possible admit. Authorization from [facility] is needed and will need to be obtained by facility if SNF needed. P: Pending Anticipate return to [facility] vs. SNF. VALENCIA Green
--- NOTE | 2018-04-08 15:40 | PM.PN.1 ---
Subjective Date Patient Seen: 04/08/18 Interval history: Patient complains of headache. He does not feel like the tylenol is helping. He does not want to participate with PT. Patient is despondent. Exam Vital Signs (past 8 hours): - 04/08/18 07:58 04/08/18 09:30 04/08/18 12:00 Temperature 98.6 F 98.8 F Pulse Rate 113 H 117 H 79 Respiratory Rate 18 22 Blood Pressure 145/90 H 121/54 L Pulse Oximetry 97 98 98 04/08/18 15:05 Temperature Pulse Rate 93 H Respiratory Rate Blood Pressure Pulse Oximetry Oxygen Delivery Method Room Air Oxygen Flow Rate 0 Narrative Exam Narrative: Lungs: Clear to ausultation CV: RRR nl Sl S2 Abd: soft/ nontender Ext: no edema Skin: bruising on anterior chest, left temporal scalp with scalped lesion Objective Labs Result Diagrams: 04/08/18 06:20 04/08/18 06:20 Labs: Laboratory Results - last 24 hr 04/08/18 04/08/18 06:20 06:20 WBC 17.2 H RBC 3.76 L Hgb 11.7 L Hct 35.5 L MCV 94.4 MCH 31.1 MCHC 33.0 RDW 14.9 H Plt Count 268 Neut % (Auto) 76.8 H Lymph % (Auto) 7.3 L [place] % (Auto) 14.6 H Eos % (Auto) 0.6 L Baso % (Auto) 0.7 Neut # (Auto) 90366 H Sodium 143 Potassium 3.6 Chloride 110 H Carbon Dioxide 23 BUN 9 Creatinine 0.50 L Estimated GFR > 60.0 BUN/Creatinine Ratio 18.0 Glucose 101 Calcium 8.0 L Total Bilirubin 0.7 AST 13 L ALT 25 Alkaline Phosphatase 90 Total Protein 5.4 L Albumin 2.6 L Globulin 2.8 Albumin/Globulin Ratio 0.9 L Assessment & Plan (1) Leukocytosis: Problem details: concern for Chronic lymphocytic leukemia given the chronicity. Outpatient work up for this Qualifiers: Leukocytosis type: unspecified Qualified Code(s): D72.829 - Elevated white blood cell count, unspecified Current visit: Yes Status: Acute (2) Weakness: Problem details: Continue PT/OT may require SNF placement Current visit: Yes Status: Acute (3) Fall: Problem details: as above Current visit: Yes Status: Acute Quality VTE Deep Vein Thrombosis/Pulmonary Embolism Present on Admission: No
--- NOTE | 2018-04-08 15:43 | P.PN_ITS ---
Subjective Date Patient Seen: 04/08/18 Interval history: Patient complains of headache. He does not feel like the tylenol is helping. He does not want to participate with PT. Patient is despondent. Exam Vital Signs (past 8 hours): - 04/08/18 07:58 04/08/18 09:30 04/08/18 12:00 Temperature 98.6 F 98.8 F Pulse Rate 113 H 117 H 79 Respiratory Rate 18 22 Blood Pressure 145/90 H 121/54 L Pulse Oximetry 97 98 98 04/08/18 15:05 Temperature Pulse Rate 93 H Respiratory Rate Blood Pressure Pulse Oximetry Oxygen Delivery Method Room Air Oxygen Flow Rate 0 Narrative Exam Narrative: Lungs: Clear to ausultation CV: RRR nl Sl S2 Abd: soft/ nontender Ext: no edema Skin: bruising on anterior chest, left temporal scalp with scalped lesion Objective Labs Result Diagrams: 04/08/18 06:20 04/08/18 06:20 Labs: Laboratory Results - last 24 hr 04/08/18 04/08/18 06:20 06:20 WBC 17.2 H RBC 3.76 L Hgb 11.7 L Hct 35.5 L MCV 94.4 MCH 31.1 MCHC 33.0 RDW 14.9 H Plt Count 268 Neut % (Auto) 76.8 H Lymph % (Auto) 7.3 L [place] % (Auto) 14.6 H Eos % (Auto) 0.6 L Baso % (Auto) 0.7 Neut # (Auto) 27978 H Sodium 143 Potassium 3.6 Chloride 110 H Carbon Dioxide 23 BUN 9 Creatinine 0.50 L Estimated GFR > 60.0 BUN/Creatinine Ratio 18.0 Glucose 101 Calcium 8.0 L Total Bilirubin 0.7 AST 13 L ALT 25 Alkaline Phosphatase 90 Total Protein 5.4 L Albumin 2.6 L Globulin 2.8 Albumin/Globulin Ratio 0.9 L Assessment & Plan (1) Leukocytosis: Problem details: concern for Chronic lymphocytic leukemia given the chronicity. Outpatient work up for this Qualifiers: Leukocytosis type: unspecified Qualified Code(s): D72.829 - Elevated white blood cell count, unspecified Current visit: Yes Status: Acute (2) Weakness: Problem details: Continue PT/OT may require SNF placement Current visit: Yes Status: Acute (3) Fall: Problem details: as above Current visit: Yes Status: Acute Quality VTE Deep Vein Thrombosis/Pulmonary Embolism Present on Admission: No
--- NOTE | 2018-04-08 19:04 | PC.NURSE ---
Ortho VS: Unable perform, uncooperative.
--- NOTE | 2018-04-08 19:14 | PC.NURSE ---
Addendum entered by Tavia Thurman R.N. 04/08/18 19:49: No c/o headache. Original Note: Maria C shift note: Patient awake, calm, and cooperative. Up out of bed with FWW/gait belt, 2 person max assist. Required frequent redirection and cues during short ambulation to BSC and to chair. Sitting in chair for dinner, drinking Ensure without any swallow difficulty. Tolerated bites of zuchinni and rice. Continent of bowel this evening, BM x 1. Niece and at bedside providing supportive care. Patient watching [employer] before retiring in to bed for the night. Call light within reach, BA to both the chair and bed.
[2018-04-09] VITALS (13 sets, daily range): BP systolic 102–146; BP diastolic 54–86; PULSE 76–117; RESP 16–20; TEMP 36.3–36.7; O2SAT 92–99
--- NOTE | 2018-04-09 | DI.US.S_ITS ---
PROCEDURE: US CAROTID DOPPLER BI INDICATIONS: r/o stenosis TECHNIQUE: Color and pulse Doppler interrogation was performed of both carotid systems, with image documentation and velocity measurements. COMPARISON: None. FINDINGS: Stenosis calculations are based on SRU (Society of Radiologists in Ultrasound) criteria. Right side: Brachial blood pressure: Not obtained. Common carotid artery peak systolic velocity: 78 cm/sec. Internal carotid artery peak systolic velocity: No flow was detectable. Internal carotid artery end diastolic velocity: N./A. External carotid artery peak systolic velocity: 148 cm/sec. ICA/CCA peak systolic ratio: N./A.. Ravi scale imaging description: Severe scattered plaque. Percent internal carotid artery stenosis: Possible occlusion and/or high grade internal carotid artery stenosis.. Vertebral artery: Flow direction is antegrade. Left side: Brachial blood pressure: 142/65 mm Hg. Common carotid artery peak systolic velocity: 94 cm/sec. Internal carotid artery peak systolic velocity: 94 cm/sec. Internal carotid artery end diastolic velocity: 17 cm/sec. External carotid artery peak systolic velocity: 85 cm/sec. ICA/CCA peak systolic ratio: 1.0. Ravi scale imaging description: Moderate scattered plaque. Percent internal carotid artery stenosis: Less than 50%. Vertebral artery: Flow direction is antegrade. IMPRESSION: 1. No flow visualized within the right internal carotid artery which may be related to degree of plaque and technical factors, although high-grade stenosis and/or occlusion cannot be excluded. If indicated MRA could be performed for further assessment. 2. Less than 50% left internal carotid artery stenosis. Dictated by: Isaac BECK Interpreted: Noemi Diaz MD on 04/09/2018 at 16:46 Approved by: Nash Roger M.D. on 04/10/2018 at 9:22
[2018-04-09] MEDS: SODIUM CHLORIDE 0.9% 1,000 ML 125 ML IV (02:30)
[2018-04-09] MEDS: ACETAMINOPHEN 325 MG TABLET 650 MG PO (02:49)
[2018-04-09 06:20] LABS: Add Manual Diff / Slide Review NO; Basophils Percent Auto 0.3 % (0-2); Eosinophils Percent Auto 1.4 % (2-4); Hematocrit 32.5 % (41-53); Hemoglobin 10.7 g/dL (13.5-17.5); Lymphocytes Percent Auto 6.8 % (25-40); Mean Corpuscular HGB Conc 33.1 % (30-36); Mean Corpuscular Hemoglobin 31.3 PG (26-34); Mean Corpuscular Volume 94.7 fL (80-100); Monocytes Percent Auto 12.6 % (3-14); Neutrophils Absolute Auto 12400 /uL (3000-5900); Neutrophils Percent Auto 78.9 % (50-75); Platelet Count 248 X10^3/uL (150-400); Red Blood Cell Count 3.43 X10^6/uL (4.5-5.9); White Blood Cell Count 15.8 X10^3/uL (4.5-11.0)
[2018-04-09 06:31] LABS: Alanine Aminotransferase 25 IU/L (21-72); Albumin 2.3 g/dL (3.5-5.0); Albumin Globulin Ratio 0.9 (1.0-2.8); Alkaline Phosphatase 73 U/L (38-126); Aspartate Aminotransferase 10 IU/L (17-59); BUN Creatinine Ratio 21.7 (6-22); Bilirubin Total 0.5 mg/dL (0.2-1.3); Blood Urea Nitrogen 13 mg/dL (9-20); Calcium 7.8 mg/dL (8.4-10.2); Carbon Dioxide 25 mmol/L (22-32); Chloride 112 mmol/L (98-107); Estimated Glomerular Filt Rate > 60.0 mL/min (>60); Globulin 2.7 g/dL (1.7-4.1); Glucose 88 mg/dL (80-110); HEMOLYSIS < 15 (0-50); Potassium 3.7 mmol/L (3.4-5.1); Sodium 144 mmol/L (137-145)
[2018-04-09] MEDS: dilTIAZem 30 MG TABLET 60 MG PO (09:16)
[2018-04-09] MEDS: DOCUSATE 100 MG CAPSULE PO (09:18)
[2018-04-09] MEDS: ENOXAPARIN 40 MG/0.4 ML SYRINGE SUBCUT (09:19)
--- NOTE | 2018-04-09 11:00 | OT.IP.EVAL ---
Current Diagnoses Elevated white blood cell count, unspecified (04/07/18) Unspecified atrial fibrillation (04/07/18) Disorientation, unspecified (04/07/18) Weakness (04/07/18) Unspecified fall, initial encounter (04/07/18) Past Medical History (Last Updated 04/06/18 @ 17:55 by Renetta Piedra RN) Cataract (Acute) CHF (congestive heart failure) (Acute) Colon cancer (Acute) Coronary artery disease (Acute) Hyperlipidemia (Acute) Hypertension (Acute) Polymyalgia rheumatica (Acute) Surgical History (Last Updated 04/06/18 @ 17:55 by Renetta Piedra RN) H/O total hip arthroplasty (Acute) History of colon resection (Acute) Occupational Therapy Inpatient Evaluation/Re-Eval M1 PT/OT-IP Prior Functional Status Start: 04/07/18 09:17 Freq: Status: Active Protocol: Document 04/09/18 11:00 PJM (Rec: 04/09/18 17:29 PJM [id number]) Medical Review Prior Functional Status Medical History Reviewed Yes Communication WFL Mobility and Gait modified indep. gait with walker indoors Activities of Daily Living and IADL's some assistance with ADLs Prior Functional Level (Other details) Per nephew, pt had assist with dressing/undressing, shaving, oral care, toileting and showering. Pt ambulated to dining room with FWW and was indep feeding himself. Social History Household Members spouse Living Arrangements Assisted Living Number of Floors (Floors) One Floor Number of Stairs To Enter/Railing? 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 M2 OT-IP Current Condition Start: 04/07/18 10:58 Freq: Status: Active Protocol: Document 04/09/18 11:00 PJM (Rec: 04/09/18 17:29 PJM [id number]) Occupational Therapy Current Condition Current Condition Evaluation Date 04/09/18 Treatment Diagnosis decreased self care, functional mobility due to recurrent falls Diagnosis Onset Date 04/06/18 Post Operative Precautions Other Precautions fall risk; bed/chair alarm M3 OT- IP Subjective and Pain Start: 04/07/18 10:58 Freq: Status: Active Protocol: Document 04/09/18 11:00 PJM (Rec: 04/09/18 17:29 [facility] [id number]) OT- Subjective Occupational Therapy Visit Type Type Initial Evaluation Visit Start Time 10:21 Visit Stop Time 11:00 Total Visit Minutes 39 Notes Orthostatic BP's postive with 30+ point drop in systolic pressure when pt moved from sit to stand this session. See details in orthostatic section of chart. Pt c/o mild dizziness but no LOB. RN aware . Occupational Therapy Visit Comments Patient/Caregiver Goals Pt would like to go back to [facility] Living OT Pain Assessment Pain When Pain Assessed After Treatment Pain Present Pain Present Denied Pain M4 OT- IP ADL's Start: 04/07/18 10:58 Freq: Status: Active Protocol: Document 04/09/18 11:00 PJ (Rec: 04/09/18 17:29 [facility] [id number]) OT [id number] General Evaluation Self-Feeding Ability Moderate Assistance Comments OT Self-Feeding Comments nephew reports they have been assisting pt with eating due to fatigue and R dominant shoulder pain from recent fall OT ADL-Grooming General Evaluation Grooming Ability Minimal Assistance Areas Needing Assistance Face Washing Comments OT Grooming Comments after set up in chair with verbal cues to have L hand assist due to R shoulder pain OT ADL-Oral Care Comments Oral Care Comments pt declined this session OT ADL-Dressing General Eval Upper Body Dressing Ability Moderate Assistance Lower Body Dressing Ability Maximum Assistance Comments OT Dressing Comments pt has caregiver assist with dressing/undressing at home OT ADL-Toileting General Evaluation Toileting Ability Total Assistance Areas Needing Assistance Perform Perineal Hygiene Comments OT Toileting Comments pt incontinent of soft stool this session with total assist for cleanup in standing. Note HR up to 140-170 with prolonged standing at pt returned to seated position in chair to rest; pt has caregiver assist with brief change at home OT ADL-Bathing Comments OT Bathing Comments did not occur; pt has assist with showering at [facility] M5 OT- IP IADL's Start: 04/07/18 10:58 Freq: Status: Active Protocol: Document 04/09/18 11:00 PJ (Rec: 04/09/18 17:29 [facility] [id number]) OT-Instrumental Activities of Daily Living Deficits IADL Deficits Identified Deficits Home Safety Awareness Awareness of Need for Assistance at Home Decreased Awareness Ability to Problem Solve Emergency Unable to Problem Solve Situations Medication Management Medication Management Caregiver Administers Money Management Money Management Caregiver Provides Assistance Meal Preparation Meal Preparation Caregiver Provides Assist Sports Medicine [facility] [facility] [place] Caregiver Provides Assist Driving Driving Caregiver Provides Assist M6 OT- IP Functional Cognition Start: 04/07/18 10:58 Freq: Status: Active Protocol: Document 04/09/18 11:00 PJM (Rec: 04/09/18 17:29 PJM [id number]) Cognitive Factors Limiting Selfcare Function Cognitive Ability Level of Alertness Alert Patient Orientation Name Month Date Place Attention Span Ability Capable of Focused Attention Ability to Follow Commands Able to Follow One Step Commands Memory Description Short Term Impaired Safety Awareness Decreased Recall of Precautions Problem Solving Ability Unable to Identify Errors Needs Assist to Identify Solutions Executive Function Ability Unable to Remember Details Cognitive Comments Cognitive Assessment Comments Pt presents with slow speed of processing but follows one step commands consistently. Appears to have some short term memory deficits. OT- Vision and Hearing OT- Hearing Assessment OT- Hearing Assessment WFL OT- Vision Assessment Visual Acuity WFL Glasses For Reading Vision Assessment Comments Pt tends to keep R eye closed; will open R eye with verbal cues; denies diplopia. Pt can read wall clock and therapist's name tag at 18 accurately. M7 OT- IP Mobility and Balance Start: 04/07/18 10:58 Freq: Status: Active Protocol: Document 04/09/18 11:00 PJM (Rec: 04/09/18 17:29 PJ [id number]) OT- Bed Mobility Assessment Rolling Level of Assistance Moderate Assistance 1 Person Assistance Supine to Sit Supine to Sit Assist Maximum Assistance 1 Person Assistance Scooting Scooting to Edge of Bed Maximum Assistance OT-Transfer Assessment Sit to and From Stand Sit to and from Stand Moderate Assistance 2 Person Assistance Transfers Transfer Ability Moderate Assistance 2 Person Assistance Technique Transfer Destination Chair Transfer Technique Stand Step Pivot Comments Mobility Comments pt has narrow base of support; difficulty with weight shift for stepping; 2 person assist for safety this session; pt stood 4 min with FWW for jess care, but with elevated HR requiring seated rest OT- Gait Assessment Comments Gait Ability Comments did not occur, see P.T. notes OT- Balance Assessment Sitting Balance and Reactions Static Sitting Balance Ability Good Dynamic Sitting Balance Ability Fair Standing Balance and Reactions Static Standing Balance Ability Fair Dynamic Standing Balance Ability Poor M8 OT- IP Objective Assessments Start: 04/07/18 10:58 Freq: Status: Active Protocol: Document 04/09/18 11:00 PJM (Rec: 04/09/18 17:29 PJ [id number]) OT Gross Range of Motion Upper Extremity Range of Motion Assessment Right Impaired ROM Impairments R shoulder scaption ~40 degrees, distal AROM WFL LUE WFL for age throughout OT Strength Upper Extremity Strength Assessment Bilaterally Impaired Shoulder R: 3-/5 L: 3+/5 Elbow R: 3+/5 L: 4-/5 Hand R: 4-/5 L: 4/5 Hand Barn Hand Strength Hand Dominance Right Comments Strength Comments R shoulder pain interferes with functional use of RUE OT- Coordination Assessment Upper Extremity Finger to Nose Test Right UE Impaired Finger Tapping Test Right UE Impaired Comments Coordination Comments R shoulder pain interferes with functional use of RUE OT-Muscle Tone Assessment Muscle Tone WNL Yes OT Sensation Assessment Comments Summary Comments Pt detects lt touch in BUE M9 OT- IP Assessment and Plan Start: 04/07/18 10:58 Freq: Status: Active Protocol: Document 04/09/18 11:00 PJ (Rec: 04/09/18 17:29 [facility] [id number]) OT Summary Assessment and Plan Potential Analytic Complexity at Evaluation Low Summary OT Impairments Pain Range of Motion Strength Balance Coordination Functional Cognition Functional Mobility Self-Feeding Grooming Dressing Toileting Bathing Toilet Transfers Shower Transfers Assessment Summary Low complexity OT assessment completed on this pt admitted with multiple falls at [facility]. Pt's activity tolerance and functional mobility far below baseline due AFIB with HR into 170's with prolonged standing during jess care this session . Pt also had significant orthostasis with standing but was only mildy symptomatic. Pt normally has significant assist with grooming, dressing , bathing, toileting at [facility]. Pt not safe to return to [facility] at this time due to high care needs and currently needs 2 person assist for transfers for safety. Recommend SNF at discharge. Goals Self-Feeding Goal Independent Grooming Goal Minimal Assistance Dressing Goal Moderate Assistance Toilet Transfer Goal Minimal Assistance Bedside Commode Days to Meet Goals 7 Frequency of Treatment Frequency Of Treatment Once a Day Treatment Plan OT Treatment Plan ADL Training Functional Mobility Patient/Family Education Discharge Planning Discharge Recommendations OT Discharge Recommendations SNF Rehab
--- NOTE | 2018-04-09 11:25 | PT.IPTN ---
Current Diagnoses Elevated white blood cell count, unspecified (04/07/18) Unspecified atrial fibrillation (04/07/18) Weakness (04/07/18) Unspecified fall, initial encounter (04/07/18) Physical Therapy Treatment Note M2 PT-IP Current Condition Start: 04/07/18 09:17 Freq: Status: Active Protocol: Document 04/07/18 15:56 [facility] (Rec: 04/07/18 16:03 [facility] [id number]) Physical Therapy Current Condition Current Condition Evaluation Date 04/07/18 Treatment Diagnosis frequent falls, gait disturbance, impaired activity tolerance M3 PT-IP Subjective Start: 04/07/18 09:17 Freq: Status: Active Protocol: Document 04/09/18 11:25 AB (Rec: 04/09/18 13:28 AB [id number]) Subjective Physical Therapy Visit Type Type Treatment Note Visit Start Time 11:25 Visit Stop Time 11:45 Total Visit Minutes 20 Number of 2ND PRESSMAN Visits 0 Physical Therapy Visit Comments Patient Comments pt initially hesistant to participate with PT but nephew encouraged pt and pt agreed to do PT Therapy Pain Assessment Pain When Pain Assessed At Rest Pain Present Pain Present Pain Reported Location Right Shoulder Scale Used pain scale not stated Pain Behaviors Guarding Holding Area M4 PT-IP Mobility and Gait Start: 04/07/18 09:17 Freq: Status: Active Protocol: Document 04/09/18 11:25 AB (Rec: 04/09/18 13:28 AB [id number]) PT-Transfer Assessment Sit to and From Stand Sit to and from Stand Maximum Assistance 1 Person Assistance Use of Upper Extremities Equipment Transfer Assistive Device Gait Belt Front Wheeled Walker Orthotic/Prosthetic Devices or Brace: No Gait Assessment Gait Gait Assistance Required: Moderate Assistance Maximum Assistance 1 Person Assist Distance (Feet) 20 Able to Maintain Weight Bearing Status Yes During Gait Assistive Devices Assistive Device Gait Belt Front Wheeled Walker Orthotic/Prosthetic Devices or Brace: No Gait Deviations General Gait Pattern Antalgic Decreased Stride Length Decreased Feet Clearance Flexed Trunk Step-to Gait Factors Limiting Gait Function Factors Limiting Gait Function Decreased Activity Tolerance Decreased Strength Difficulty Following Directions Limited Range of Motion Pain Poor Balance Poor Safety Awareness Comments Gait Comments pt ambulated using FWW ~ 20 ft mod to max A and max cues and stated that he has to go back to bed. GA increased to 117 with mobility O2 sat at ~ 80 % but during sitting 96%. pt's finger is cold and may not provide accurate reading. nephew encouraged pt to sit up on chair and pt agreed to walk back to chair and completed using FWW 20 ft max A and max cues requiring assist with maneuvering FWW as well. M5 PT-IP Objective Assessments Start: 04/07/18 09:17 Freq: Status: Active Protocol: Document 04/07/18 09:10 RCC (Rec: 04/07/18 10:03 [facility] [id number]) Orientation Orientation/Cognition Level of Alertness Alert Gross Range of Motion Upper Extremity ROM Impairments R shoulder flexion to 40 degrees, no movement of R scapula with attempted ROM Lower Extremity ROM Impairments limited DF bilaterally Strength Upper Extremity Strength Shoulder R shoulder not tested due to pain Lower Extremity Strength Hip flexion: L 4/5, R4-/5 Knee flexion: L 5/5, R 4/5; extension: L 5/5, R 5/5 Ankle DF: L 5/5, R 4/5 Sensation Assessment Sensation Gross Sensation WNL Muscle Tone Muscle Tone WNL Yes M6 PT-IP Treatment Start: 04/07/18 09:17 Freq: Status: Active Protocol: Document 04/09/18 11:25 AB (Rec: 04/09/18 13:28 AB [id number]) Physical Therapy Treatment Education Education Provided Precautions Safety M7 PT-IP Assessment and Plan Start: 04/07/18 09:17 Freq: Status: Active Protocol: Document 04/09/18 11:25 AB (Rec: 04/09/18 13:28 AB [id number]) PT Summary Assessment and Plan Potential Rehabilitation Potential Fair Summary Impairments Pain ROM Strength Balance Coordination Sensation Tone Cognition Bed Mobility Transfers Gait Activity Tolerance Progress Towards Goals Slow Progress due to Pain Slow Progress due to Medical Issues Slow Progress due to Activity Tolerance Assessment Summary pt continues to require max A and max cues with mobility. pt needs 24/7 assist and will benefit from SNF rehab. Goals Bed Mobility Goal Contact Guard Assistance Transfer Goal Contact Guard Assistance Gait Goal Contact Guard Assistance Gait Distance 50 Days to Meet Goals 3 Frequency of Treatment Frequency Of Treatment Twice a Day Treatment Plan Physical Therapy Treatment Plan Bed Mobility Training Transfer Training Gait Training Therapeutic Exercise Balance Retraining Hot or Cold Pack Neuromuscular Re-ed Manual Therapy Other Recommendations and Next Treatment check BP & work on standing Focus tolerance Recommendations To Nursing Amount of Assist Needed 2 Person Assist Discharge Recommendations PT Discharge Recommendations SNF Rehab
--- NOTE | 2018-04-09 15:30 | PT.IPTN ---
Current Diagnoses Elevated white blood cell count, unspecified (04/07/18) Unspecified atrial fibrillation (04/07/18) Disorientation, unspecified (04/07/18) Weakness (04/07/18) Unspecified fall, initial encounter (04/07/18) Physical Therapy Treatment Note M2 PT-IP Current Condition Start: 04/07/18 09:17 Freq: Status: Active Protocol: Document 04/07/18 15:56 RCC (Rec: 04/07/18 16:03 RCC [id number]) Physical Therapy Current Condition Current Condition Evaluation Date 04/07/18 Treatment Diagnosis frequent falls, gait disturbance, impaired activity tolerance M3 PT-IP Subjective Start: 04/07/18 09:17 Freq: Status: Active Protocol: Document 04/09/18 15:30 AB (Rec: 04/09/18 16:44 AB [id number]) Subjective Physical Therapy Visit Type Type Treatment Note Visit Start Time 15:30 Visit Stop Time 15:50 Total Visit Minutes 20 Number of MACHINE ROUGH ROUNDER Visits 0 Physical Therapy Visit Comments Patient Comments pt initially refusing but agreed to try after education and motivation provided. M4 PT-IP Mobility and Gait Start: 04/07/18 09:17 Freq: Status: Active Protocol: Document 04/09/18 15:30 AB (Rec: 04/09/18 16:44 AB [id number]) PT-Bed Mobility Assessment Supine to Sit Supine to Sit Maximum Assistance 1 Person Assistance Bedrails Sit to Supine Sit to Supine Maximum Assistance Bedrails PT-Transfer Assessment Sit to and From Stand Sit to and from Stand Moderate Assistance Maximum Assistance 1 Person Assistance Use of Upper Extremities Equipment Transfer Assistive Device Gait Belt Front Wheeled Walker Orthotic/Prosthetic Devices or Brace: No Gait Assessment Gait Gait Assistance Required: Moderate Assistance 1 Person Assist Distance (Feet) 30 Able to Maintain Weight Bearing Status Yes During Gait Assistive Devices Assistive Device Gait Belt Front Wheeled Walker Orthotic/Prosthetic Devices or Brace: No Gait Deviations General Gait Pattern Antalgic Decreased Stride Length Decreased Feet Clearance Lateral Trunk Lean Factors Limiting Gait Function Factors Limiting Gait Function Decreased Activity Tolerance Decreased Strength Difficulty Following Directions Pain Poor Balance Poor Safety Awareness Comments Gait Comments pt requires max cues for all tasks. continues to have SOB with mobility. prior to tx: ME 98 bpm O2 sat 96% after tx : unable to obtain readings with pulse oximeter. change fingers but still unable to successfully get readings. M5 PT-IP Objective Assessments Start: 04/07/18 09:17 Freq: Status: Active Protocol: Document 04/07/18 09:10 RCC (Rec: 04/07/18 10:03 RCC [id number]) Orientation Orientation/Cognition Level of Alertness Alert Gross Range of Motion Upper Extremity ROM Impairments R shoulder flexion to 40 degrees, no movement of R scapula with attempted ROM Lower Extremity ROM Impairments limited DF bilaterally Strength Upper Extremity Strength Shoulder R shoulder not tested due to pain Lower Extremity Strength Hip flexion: L 4/5, R4-/5 Knee flexion: L 5/5, R 4/5; extension: L 5/5, R 5/5 Ankle DF: L 5/5, R 4/5 Sensation Assessment Sensation Gross Sensation WNL Muscle Tone Muscle Tone WNL Yes M6 PT-IP Treatment Start: 04/07/18 09:17 Freq: Status: Active Protocol: Document 04/09/18 11:25 AB (Rec: 04/09/18 13:28 AB [id number]) Physical Therapy Treatment Education Education Provided Precautions Safety M7 PT-IP Assessment and Plan Start: 04/07/18 09:17 Freq: Status: Active Protocol: Document 04/09/18 15:30 AB (Rec: 04/09/18 16:44 AB [id number]) PT Summary Assessment and Plan Potential Rehabilitation Potential Fair Summary Impairments Pain ROM Strength Balance Coordination Sensation Tone Cognition Bed Mobility Transfers Gait Activity Tolerance Progress Towards Goals Slow Progress due to Pain Slow Progress due to Medical Issues Slow Progress due to Activity Tolerance Assessment Summary pt is progressing slowly with mobility but continues to require mod to max A and max cues. pt will require SNF rehab to improve strength and function. Goals Bed Mobility Goal Contact Guard Assistance Transfer Goal Contact Guard Assistance Gait Goal Contact Guard Assistance Gait Distance 50 Days to Meet Goals 3 Frequency of Treatment Frequency Of Treatment Twice a Day Treatment Plan Physical Therapy Treatment Plan Bed Mobility Training Transfer Training Gait Training Therapeutic Exercise Balance Retraining Hot or Cold Pack Neuromuscular Re-ed Manual Therapy Other Recommendations and Next Treatment check BP & work on standing Focus tolerance Recommendations To Nursing Amount of Assist Needed 2 Person Assist Discharge Recommendations PT Discharge Recommendations SNF Rehab
--- NOTE | 2018-04-09 15:42 | PM.PN.1 ---
Subjective Date Patient Seen: 04/09/18 Interval history: Still with a mild headache. Confused off/on yesterday. Patient continues to have rapid atrial fibrillation at rest which increases with activity. He was previously on metoprolol 50 bid before admission. On Cardizem 60 tid now without improvement. Nephew request duplex of carotids because of delerium Exam Vital Signs (past 8 hours): - 04/09/18 08:30 04/09/18 08:35 04/09/18 11:04 Temperature 98.1 F Pulse Rate 114 H Pulse Rate [Orthostatic Lying] 100 H Pulse Rate [Orthostatic Sitting] 117 H Pulse Rate [Orthostatic Standing] 109 H Respiratory Rate 18 Blood Pressure 125/69 Blood Pressure [Orthostatic Lying] 132/72 Blood Pressure [Orthostatic Sitting] 146/86 H Blood Pressure [Orthostatic Standing] 102/78 Pulse Oximetry 98 98 04/09/18 11:08 04/09/18 12:46 Temperature 97.4 F L Pulse Rate 94 H Pulse Rate [Orthostatic Lying] Pulse Rate [Orthostatic Sitting] Pulse Rate [Orthostatic Standing] Respiratory Rate 18 Blood Pressure 141/71 H Blood Pressure [Orthostatic Lying] Blood Pressure [Orthostatic Sitting] Blood Pressure [Orthostatic Standing] Pulse Oximetry 99 92 Oxygen Delivery Method Room Air Oxygen Flow Rate 0 Narrative Exam Narrative: Pleasant male calm and in no acute distress Lungs: Clear to auscultation CV: tachycardic nl S1 S@ Abd: soft/ non tender non distended Ext 1= edema Objective Labs Result Diagrams: 04/09/18 06:00 04/09/18 06:00 Labs: Laboratory Results - last 24 hr 04/09/18 04/09/18 06:00 06:00 WBC 15.8 H RBC 3.43 L Hgb 10.7 L Hct 32.5 L MCV 94.7 MCH 31.3 MCHC 33.1 RDW 15.0 H Plt Count 248 Neut % (Auto) 78.9 H Lymph % (Auto) 6.8 L Wells % (Auto) 12.6 Eos % (Auto) 1.4 L Baso % (Auto) 0.3 Neut # (Auto) 51974 H Sodium 144 Potassium 3.7 Chloride 112 H Carbon Dioxide 25 BUN 13 Creatinine 0.60 L Estimated GFR > 60.0 BUN/Creatinine Ratio 21.7 Glucose 88 Calcium 7.8 L Total Bilirubin 0.5 AST 10 L ALT 25 Alkaline Phosphatase 73 Total Protein 5.0 L Albumin 2.3 L Globulin 2.7 Albumin/Globulin Ratio 0.9 L Assessment & Plan (1) Atrial fibrillation with rapid ventricular response: Problem details: Will discontinue Cardizem, resume metroprolol and load with 1 gram of digoxin Current visit: Yes Status: Acute (2) Fall: Problem details: as above continue PT/OT Current visit: Yes Status: Acute (3) Leukocytosis: Problem details: concern for Chronic lymphocytic leukemia given the chronicity. Outpatient work up for this Qualifiers: Leukocytosis type: unspecified Qualified Code(s): D72.829 - Elevated white blood cell count, unspecified Current visit: Yes Status: Acute (4) Weakness: Problem details: Continue PT/OT may require SNF placement Current visit: Yes Status: Acute (5) Acute delirium: Problem details: suspect chronic or due to medications and being in the hospital. Will check duplex of carotids and follow up further Current visit: Yes Status: Acute Plan: Assessment/Plan Narrative: TO SNF tomorrow Quality VTE Deep Vein Thrombosis/Pulmonary Embolism Present on Admission: No
[2018-04-09] MEDS: DIGOXIN 500 MCG/2 ML AMPUL 250 MCG IV ×2 (16:50→22:39)
[2018-04-09] MEDS: METOPROLOL IR 25 MG TABLET PO (18:35)
--- NOTE | 2018-04-09 19:00 | PC.NURSE ---
Pt. refuses to move to take orthostatic vitals.
[2018-04-10] VITALS (12 sets, daily range): BP systolic 128–155; BP diastolic 52–89; PULSE 66–104; RESP 16–24; TEMP 36.5–37.2; O2SAT 92–98
--- NOTE | 2018-04-10 | DI.RAD.S_ITS ---
PROCEDURE: XR CHEST 2V INDICATIONS: wheezing TECHNIQUE: 2 views of the chest were acquired. COMPARISON: [facility], , XR CHEST 1V, 04/06/2018, 9:37. [facility], , CHEST 2 VIEW, 09/04/2013, 15:36. [facility], CR, CHEST 2 VIEW, 08/21/2013, 15:46. [facility], , CHEST 1 VIEW, 06/19/2013, 16:45. FINDINGS: Surgical changes and devices: None. Lungs and pleura: No pneumothorax. Small bilateral pleural effusions. Previously noted 1.8 similar nodular opacity projecting over the right perihilar region is again noted but appears less distinct than on prior exam, and may represent a confluence of the pulmonary vasculature superimposed on overlying rib shadows. Lungs are hypoinflated there are no focal consolidations are seen. Mediastinum: Calcifications of the aortic arch are noted. Mediastinal contours are normal. Heart size is normal. Bones and chest wall: Degenerative changes of the right glenohumeral joint noted. There is a wedge compression fracture of a lower thoracic vertebral body, which appears chronic but is new from comparison exam of 09/04/13. IMPRESSION: 1. Previously noted 1.8 similar nodular opacity projecting over the right perihilar region is again noted but appears less distinct than on prior exam, and may represent a confluence of the pulmonary vasculature superimposed on overlying rib shadows. Attention on followup exams suggested. 2. Small bilateral pleural effusions. 3. Wedge compression fracture of a lower thoracic vertebral body, which appears chronic but is not seen on comparison radiographs of 09/04/13. Correlation with point tenderness suggested. Dictated by: Maxime Severino M.D. on 04/10/2018 at 10:00 Approved by: Maxime Severino M.D. on 04/10/2018 at 10:10
--- NOTE | 2018-04-10 | DI.MRI.S_ITS ---
PROCEDURE: MR ANGIO NECK W CON INDICATIONS: r/o high grade carotid stenosis on the right TECHNIQUE: Axial and sagittal TruFISP through the neck. Coronal dynamic MRA after the administration of contrast in the arterial and venous phases, with rotating 3-dimensional maximum intensity projection (MIP) reformats constructed from subtraction images. COMPARISON: None. FINDINGS: Image quality: Visualization limited by patient positioning necessary to acquire the images, without ability to tolerate use of the neck coil for high-resolution vascular imaging. Rather, the body coil was utilized and provides moderate quality visualization. Carotid system: Great vessels demonstrate a conventional anatomy as they arise from the aortic arch. The origins of the common carotid arteries appear normal. The calibers and courses of the common carotid arteries are likewise normal. The carotid bifurcations appear normal bilaterally. The internal carotid arteries are widely patent up to the [place]. Posterior circulation: The origins of the vertebral arteries are unremarkable. The more superior portions of the vertebral arteries demonstrate normal course and caliber. Vertebral arteries join to form a normal appearing basilar artery. Miscellaneous: Subclavian arteries are patent throughout. Pre-contrast images through the neck demonstrate no soft tissue abnormalities. Bilateral pleural effusions are present, small in size. IMPRESSION: Limited quality of visualization due to the necessity of using the body coil for acquisition of angiographic imaging rather than use of the neck coil. This was necessary due to patient positioning issues. Within the constraints of this study no significant carotid stenosis is found nor is there occlusion. There is mild left vertebral dominance. Note is made of a mild degree of bilateral pleural effusions visualized during the course of this examination. Any quantitative measurements of stenosis were performed using NASCET criteria. Dictated by: Nash Roger M.D. on 04/10/2018 at 11:19 Approved by: Nash Roger M.D. on 04/10/2018 at 11:22
[2018-04-10] MEDS: METOPROLOL IR 25 MG TABLET PO ×4 (00:14→17:59)
[2018-04-10] MEDS: HYDROCODONE/ACET 5/325 TABLET 1 TAB PO ×2 (00:28→18:12)
--- NOTE | 2018-04-10 00:53 | PC.NURSE ---
Addendum entered by Mony Dalton R.N. 04/10/18 06:31: Has been repositioned q2h through the night. This morning states he is having no pain. Tele reading at 0400 continued to be afib CVR and current HR at this time is 74. Original Note: Patient is oriented except to year (2015) and place. Breath sounds with expiratory and audible wheezes throughout but denies feeling SOB; RA sat 98%. HR irregular; on telemetry and 0000 reading was afib CVR. Denies nausea. BT present and abdomen is soft. Incontinent of B&B and has liquid brown stool oozing out of rectum. Rectal area is red and excoriated so zinc barrier cream applied. Has bruising on anterior right chest and around to upper posterior shoulder and into neck. Bruising also around left nipple and bilateral UE. Does complain of 6/10 pain in right shoulder so medicated with Vicodin. Needing assist to reposition q2h; waffle cushion being used to offload pressure. Wearing bilateral DEMETRIUS stockings. Fall risk score is high and bed alarm is activated.
[2018-04-10] MEDS: SODIUM CHLORIDE 0.9% FLUSH 10 ML IV ×3 (05:30→21:13)
[2018-04-10] MEDS: DIGOXIN 500 MCG/2 ML AMPUL 250 MCG IV (05:30)
--- NOTE | 2018-04-10 07:57 | CM.DPC ---
DCP/continued: Reviewed chart. BINGO CLERK met briefly with patient and nephew/Isaac at bedside on 03-10-18 to discuss/confirm d/c plan. Patient and family aware and agreeable for patient to go to [facility] for short SNF stay prior to returning to [facility] with his spouse/Mony. Per CM/Rekha, RAL has done on site assessment and feel that patient most appropriate to go to SNF prior to returning to [facility]. Patient agreeable and prefers [facility]. BINGO CLERK called admit at [facility] and they will start authorization process for [facility]. They are contracted and hope to have authorization by 04-10-18. updated on 04-09-18. P: [facility] when medically stable. VALENCIA Green
[2018-04-10] MEDS: ENOXAPARIN 40 MG/0.4 ML SYRINGE SUBCUT (08:20)
[2018-04-10 10:13] LABS: Hematocrit 37.7 % (41-53); Hemoglobin 12.3 g/dL (13.5-17.5); Mean Corpuscular HGB Conc 32.7 % (30-36); Mean Corpuscular Volume 94.8 fL (80-100); Platelet Count 334 X10^3/uL (150-400); Red Blood Cell Count 3.98 X10^6/uL (4.5-5.9); Red Cell Distribution Width 15.1 % (11.6-14.8); White Blood Cell Count 18.9 X10^3/uL (4.5-11.0)
[2018-04-10 10:18] LABS: BUN Creatinine Ratio 21.7 (6-22); Blood Urea Nitrogen 13 mg/dL (9-20); Calcium 8.4 mg/dL (8.4-10.2); Carbon Dioxide 25 mmol/L (22-32); Chloride 108 mmol/L (98-107); Estimated Glomerular Filt Rate > 60.0 mL/min (>60); Glucose 95 mg/dL (80-110); HEMOLYSIS < 15 (0-50); Potassium 4.1 mmol/L (3.4-5.1); Sodium 141 mmol/L (137-145)
--- NOTE | 2018-04-10 10:25 | PT.IPTN ---
Current Diagnoses Elevated white blood cell count, unspecified (04/07/18) Unspecified atrial fibrillation (04/07/18) Disorientation, unspecified (04/07/18) Weakness (04/07/18) Unspecified fall, initial encounter (04/07/18) Physical Therapy Treatment Note M2 PT-IP Current Condition Start: 04/07/18 09:17 Freq: Status: Active Protocol: Document 04/07/18 15:56 RCC (Rec: 04/07/18 16:03 RCC [id number]) Physical Therapy Current Condition Current Condition Evaluation Date 04/07/18 Treatment Diagnosis frequent falls, gait disturbance, impaired activity tolerance M3 PT-IP Subjective Start: 04/07/18 09:17 Freq: Status: Active Protocol: Document 04/10/18 10:25 GGD (Rec: 04/10/18 11:17 GGD [id number]) Subjective Physical Therapy Visit Type Type Treatment Note Visit Start Time 09:55 Visit Stop Time 10:25 Total Visit Minutes 30 Number of RADIOLOGY RESIDENT Visits 1 Physical Therapy Visit Comments Patient Comments Pt want's to get up and walk. M4 PT-IP Mobility and Gait Start: 04/07/18 09:17 Freq: Status: Active Protocol: Document 04/10/18 10:25 GGD (Rec: 04/10/18 11:17 GGD [id number]) PT-Bed Mobility Assessment Supine to Sit Supine to Sit Moderate Assistance 1 Person Assistance Bedrails Sit to Supine Sit to Supine Maximum Assistance 1 Person Assistance PT-Transfer Assessment Sit to and From Stand Sit to and from Stand Contact Guard Assistance Use of Upper Extremities Equipment Transfer Assistive Device Gait Belt Front Wheeled Walker Orthotic/Prosthetic Devices or Brace: No Transfers Transfer Destination Bed Gait Assessment Gait Gait Assistance Required: Minimum Assistance 1 Person Assist Distance (Feet) 80 Able to Maintain Weight Bearing Status Yes During Gait Assistive Devices Assistive Device Gait Belt Front Wheeled Walker Orthotic/Prosthetic Devices or Brace: No Gait Deviations General Gait Pattern Antalgic Decreased Stride Length Decreased Feet Clearance Lateral Trunk Lean Comments Gait Comments pt need min cues for FWW management. SOB with gait, O2 on RA with activity 84%, 96% after 1 min of rest. M5 PT-IP Objective Assessments Start: 04/07/18 09:17 Freq: Status: Active Protocol: Document 04/07/18 09:10 RCC (Rec: 04/07/18 10:03 RCC [id number]) Orientation Orientation/Cognition Level of Alertness Alert Gross Range of Motion Upper Extremity ROM Impairments R shoulder flexion to 40 degrees, no movement of R scapula with attempted ROM Lower Extremity ROM Impairments limited DF bilaterally Strength Upper Extremity Strength Shoulder R shoulder not tested due to pain Lower Extremity Strength Hip flexion: L 4/5, R4-/5 Knee flexion: L 5/5, R 4/5; extension: L 5/5, R 5/5 Ankle DF: L 5/5, R 4/5 Sensation Assessment Sensation Gross Sensation WNL Muscle Tone Muscle Tone WNL Yes M6 PT-IP Treatment Start: 04/07/18 09:17 Freq: Status: Active Protocol: Document 04/09/18 11:25 AB (Rec: 04/09/18 13:28 AB [id number]) Physical Therapy Treatment Education Education Provided Precautions Safety M7 PT-IP Assessment and Plan Start: 04/07/18 09:17 Freq: Status: Active Protocol: Document 04/10/18 10:25 GGD (Rec: 04/10/18 11:17 GGD [id number]) PT Summary Assessment and Plan Frequency of Treatment Frequency Of Treatment Twice a Day Recommendations To Nursing Amount of Assist Needed 2 Person Assist Discharge Recommendations PT Discharge Recommendations SNF Rehab
[2018-04-10 10:41] LABS: Neutrophils Absolute Manual 14175 /uL (3000-5900); Total Cells Counted 100
[2018-04-10 10:43] LABS: RBC Morphology Normal Morphology
[2018-04-10] MEDS: FUROSEMIDE 20 MG/2 ML VIAL IV (11:31)
--- NOTE | 2018-04-10 13:14 | PM.PN.1 ---
Subjective Date Patient Seen: 04/10/18 Interval history: No specific complaints. However the patient appears to be short of breath with minimal movement. He is wheezing. He was up walking with PT and doing very well. His heart rate has improved and he had no significant tachycardia duplex of carotids were reviewed, and follow up MRA ordered. NO evidence of carotid stenosis. His chest xray showed small bilateral effusions. The patient recieved one dose of IV lasix Exam Vital Signs (past 8 hours): - 04/10/18 05:30 04/10/18 07:25 04/10/18 08:48 Temperature 97.7 F Pulse Rate 74 66 Pulse Rate [Orthostatic Lying] Pulse Rate [Orthostatic Sitting] Pulse Rate [Orthostatic Standing] Respiratory Rate 20 Blood Pressure 155/85 H 146/69 H Blood Pressure [Orthostatic Lying] Blood Pressure [Orthostatic Sitting] Blood Pressure [Orthostatic Standing] Pulse Oximetry 97 98 04/10/18 10:34 04/10/18 11:00 Temperature 98.9 F Pulse Rate 77 Pulse Rate [Orthostatic Lying] 82 Pulse Rate [Orthostatic Sitting] 78 Pulse Rate [Orthostatic Standing] 104 H Respiratory Rate 22 Blood Pressure Blood Pressure [Orthostatic Lying] 141/68 H Blood Pressure [Orthostatic Sitting] 133/64 Blood Pressure [Orthostatic Standing] 128/78 Pulse Oximetry 97 Oxygen Delivery Method Room Air Oxygen Flow Rate 0 Narrative Exam Narrative: Pleasant gentleman in no acute distress Lungs: decreased breath sounds with diffuse wheezing CV: irregularly, irregular, nl S1S2 2/6 EARLINE Abd; soft/ non tender non distended Ext: no edema Objective Labs Result Diagrams: 04/10/18 09:50 04/10/18 09:50 Labs: Laboratory Results - last 24 hr 04/10/18 04/10/18 09:50 09:50 WBC 18.9 H RBC 3.98 L Hgb 12.3 L Hct 37.7 L MCV 94.8 MCH 31.0 MCHC 32.7 RDW 15.1 H Plt Count 334 Total Counted 100 Seg Neutrophils % 74.0 H Band Neutrophils % 1.0 L Lymphocytes % (Manual) 18.0 L Monocytes % (Manual) 6.0 Eosinophils % (Manual) 1.0 L Neutrophils # (Manual) 24228 H RBC Morphology Normal morphology Sodium 141 Potassium 4.1 Chloride 108 H Carbon Dioxide 25 BUN 13 Creatinine 0.60 L Estimated GFR > 60.0 BUN/Creatinine Ratio 21.7 Glucose 95 Calcium 8.4 B-Natriuretic Peptide 568.0 H Assessment & Plan (1) Atrial fibrillation with rapid ventricular response: Problem details: Will discontinue Cardizem, resume metroprolol and load with 1 gram of digoxin continue dig/and metoprolol. Given multiple falls no anticoagulation Current visit: Yes Status: Acute (2) Fall: Problem details: as above continue PT/OT Current visit: Yes Status: Acute (3) Acute delirium: Problem details: suspect chronic or due to medications and being in the hospital. Will check duplex of carotids and follow up further Current visit: Yes Status: Acute (4) Weakness: Problem details: Continue PT/OT may require SNF placement Current visit: Yes Status: Acute (5) Leukocytosis: Problem details: concern for Chronic lymphocytic leukemia given the chronicity. Outpatient work up for this Qualifiers: Leukocytosis type: unspecified Qualified Code(s): D72.829 - Elevated white blood cell count, unspecified Current visit: Yes Status: Acute (6) Acute diastolic heart failure: Problem details: Given Lasix 20 mg iv today Current visit: Yes Status: Acute Plan: Assessment/Plan Narrative: To SNF tomorrow Quality VTE Deep Vein Thrombosis/Pulmonary Embolism Present on Admission: No
--- NOTE | 2018-04-10 13:24 | PC.NURSE ---
Assumed pt care at 0700. Pt was a/o x3 this morning with no c/o pain. Pt being repositioned Q2 hour with bed alarm in place. Incontinent at times. Pt to MRI at 1030. Bed in lowest locked position with call light within reach. Care continues.
--- NOTE | 2018-04-10 14:10 | PT.IPTN ---
Current Diagnoses Elevated white blood cell count, unspecified (04/07/18) Unspecified atrial fibrillation (04/07/18) Acute diastolic (congestive) heart failure (04/07/18) Disorientation, unspecified (04/07/18) Weakness (04/07/18) Unspecified fall, initial encounter (04/07/18) Physical Therapy Treatment Note M2 PT-IP Current Condition Start: 04/07/18 09:17 Freq: Status: Active Protocol: Document 04/07/18 15:56 RCC (Rec: 04/07/18 16:03 RCC [id number]) Physical Therapy Current Condition Current Condition Evaluation Date 04/07/18 Treatment Diagnosis frequent falls, gait disturbance, impaired activity tolerance M3 PT-IP Subjective Start: 04/07/18 09:17 Freq: Status: Active Protocol: Document 04/10/18 14:10 GGD (Rec: 04/10/18 15:45 GGD [id number]) Subjective Physical Therapy Visit Type Type Treatment Note Visit Start Time 13:45 Visit Stop Time 14:10 Total Visit Minutes 25 Number of X 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 Therapy Pain Assessment Pain When Pain Assessed During Mobility Pain Present Pain Present Pain Reported Location Right Shoulder Scale Used pain scale not stated M4 PT-IP Mobility and Gait Start: 04/07/18 09:17 Freq: Status: Active Protocol: Document 04/10/18 14:10 GGD (Rec: 04/10/18 15:45 GGD [id number]) PT-Bed Mobility Assessment Supine to Sit Supine to Sit Moderate Assistance 1 Person Assistance Bedrails Scooting Scooting to Edge of Bed Moderate Assistance PT-Transfer Assessment Sit to and From Stand Sit to and from Stand Contact Guard Assistance Use of Upper Extremities Equipment Transfer Assistive Device Gait Belt Front Wheeled Walker Orthotic/Prosthetic Devices or Brace: No Transfers Transfer Destination Chair Gait Assessment Gait Gait Assistance Required: Minimum Assistance 1 Person Assist Distance (Feet) 100 Able to Maintain Weight Bearing Status Yes During Gait Assistive Devices Assistive Device Gait Belt Front Wheeled Walker Orthotic/Prosthetic Devices or Brace: No Gait Deviations General Gait Pattern Antalgic Decreased Stride Length Decreased Feet Clearance Lateral Trunk Lean Factors Limiting Gait Function Factors Limiting Gait Function Decreased Activity Tolerance Decreased Strength Poor Balance Poor Safety Awareness Comments Gait Comments O2 at rest 98% on RA, with activity 95% on RA. HR with activity 90-120 M5 PT-IP Objective Assessments Start: 04/07/18 09:17 Freq: Status: Active Protocol: Document 04/07/18 09:10 RCC (Rec: 04/07/18 10:03 RCC [id number]) Orientation Orientation/Cognition Level of Alertness Alert Gross Range of Motion Upper Extremity ROM Impairments R shoulder flexion to 40 degrees, no movement of R scapula with attempted ROM Lower Extremity ROM Impairments limited DF bilaterally Strength Upper Extremity Strength Shoulder R shoulder not tested due to pain Lower Extremity Strength Hip flexion: L 4/5, R4-/5 Knee flexion: L 5/5, R 4/5; extension: L 5/5, R 5/5 Ankle DF: L 5/5, R 4/5 Sensation Assessment Sensation Gross Sensation WNL Muscle Tone Muscle Tone WNL Yes M6 PT-IP Treatment Start: 04/07/18 09:17 Freq: Status: Active Protocol: Document 04/09/18 11:25 AB (Rec: 04/09/18 13:28 AB [id number]) Physical Therapy Treatment Education Education Provided Precautions Safety M7 PT-IP Assessment and Plan Start: 04/07/18 09:17 Freq: Status: Active Protocol: Document 04/10/18 14:10 GGD (Rec: 04/10/18 15:45 GGD [id number]) PT Summary Assessment and Plan Summary Assessment Summary Pt is improving slowly.He progressing gait distance and sit to stand. He needs mod A for bed mobility and min cues for safety with gait and transfers. Frequency of Treatment Frequency Of Treatment Twice a Day Treatment Plan Other Recommendations and Next Treatment Progress bed mobility and Focus monitor HR and O2. Recommendations To Nursing Amount of Assist Needed 2 Person Assist Discharge Recommendations PT Discharge Recommendations SNF Rehab
--- NOTE | 2018-04-10 14:59 | OT.IP.TRT ---
Current Diagnoses Elevated white blood cell count, unspecified (04/07/18) Unspecified atrial fibrillation (04/07/18) Acute diastolic (congestive) heart failure (04/07/18) Disorientation, unspecified (04/07/18) Weakness (04/07/18) Unspecified fall, initial encounter (04/07/18) Occupational Therapy Treatment Note M2 OT-IP Current Condition Start: 04/07/18 10:58 Freq: Status: Active Protocol: Document 04/09/18 11:00 PJM (Rec: 04/09/18 17:29 PJM [id number]) Occupational Therapy Current Condition Current Condition Evaluation Date 04/09/18 Treatment Diagnosis decreased self care, functional mobility due to recurrent falls Diagnosis Onset Date 04/06/18 Post Operative Precautions Other Precautions fall risk; bed/chair alarm M3 OT- IP Subjective and Pain Start: 04/07/18 10:58 Freq: Status: Active Protocol: Document 04/10/18 14:58 PJM (Rec: 04/10/18 14:59 PJM [id number]) OT- Subjective Occupational Therapy Visit Type Type Administrative Note Notes Attempted to see pt , but pt out of room at [facility]; then sleeping soundly. Per chart notes, pt to d/c to [facility] when medically stable; possibly
[2018-04-11] VITALS (11 sets, daily range): BP systolic 131–156; BP diastolic 58–83; PULSE 74–108; RESP 16–20; TEMP 36.5–37.1; O2SAT 91–97
[2018-04-11] MEDS: METOPROLOL IR 25 MG TABLET PO ×2 (00:08→05:47)
--- NOTE | 2018-04-11 00:32 | PC.NURSE ---
Addendum entered by Mony Dalton R.N. 04/11/18 04:26: Complains of 4/10 right shoulder pain; medicated with Tylenol. Original Note: Patient is alert and oriented except to day of week. Breath sounds with inspiratory crackles at bilateral bases. Becomes audibly wheezy with activity of repositioning. RA sat 93%. HR irregular; is on telemetry and has been afib CVR. BP elevated at 156/83. Denies nausea. BT present and abdomen is soft. Incontinent of B&B. Unable to turn himself so is being repositioned q2h and brief changed as needed. Skin remains bruised on upper anterior/posterior torso (mostly on right side) as well as bilateral UE. Upper extremities also appear to be edematous. Wearing bilateral DEMETRIUS stockings. Denies pain. Fall risk score is high and bed alarm is activated.
[2018-04-11] MEDS: ACETAMINOPHEN 325 MG TABLET 650 MG PO (04:24)
[2018-04-11 06:09] LABS: Blood Urea Nitrogen 15 mg/dL (9-20); Calcium 8.2 mg/dL (8.4-10.2); Carbon Dioxide 28 mmol/L (22-32); Chloride 106 mmol/L (98-107); Estimated Glomerular Filt Rate > 60.0 mL/min (>60); Glucose 94 mg/dL (80-110); HEMOLYSIS < 15 (0-50); Potassium 3.5 mmol/L (3.4-5.1); Sodium 140 mmol/L (137-145)
[2018-04-11] MEDS: CALCIUM GLUCONATE 9.3 MEQ in SODIUM CHLORIDE 0.9% 50 ML 140 ML IV (09:39)
[2018-04-11] MEDS: ENOXAPARIN 40 MG/0.4 ML SYRINGE SUBCUT (09:39)
[2018-04-11] MEDS: SODIUM CHLORIDE 0.9% FLUSH 10 ML IV ×2 (09:40→20:42)
--- NOTE | 2018-04-11 09:58 | P.DS_ITS ---
History of Present Illness Date Patient Seen: 04/11/18 Chief complaint: FALL Narrative: Patient is a 82 years of age male that is and lives with his in assisted living facility. Patient notes he has repeatedly been falling past week. It is unclear as to why this patient has suddenly been falling as often as he does. There was a recent CT of the head on a prior recent ER visit which was negative for any acute CVA. No MRI was done and follow-up. Patient denies any recent fevers and chills. No chest pain or cough or shortness of breath sensation noted. Patient is well oriented to time place person and seems to be able to answer the questions posed regarding his state of health in the past week. Discharge Providers Date of admission: 04/07/18 15:10 Primary care physician: JAVIER Schmitt Consults: 04/06/18 15:02 Consult to Substation Mechanic Routine Comment: 04/06/18 15:22 Consult to Occupational Therapy Evaluate & Treat Comment: Physician Instructions: Evaluate and treat 04/06/18 15:25 Consult to Physical Therapy Evaluate & Treat Comment: Physician Instructions: Evaluate and Treat Discharge provider: Yanely Gomez MD Discharge Date: 04/11/18 Summary Discharge Diagnosis: Atrial Fibrillation with Rapid Ventricular Response- improved Orthostatic Hypotension Frequent Falls Acute Diastolic Heart Failure 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 He was found to be in rapid atrial fibrillation. He was intitially treated with cardizem without success. He was subsequently switched to metroprolol with improved rate control. He was orthostatic but able to ambulate with PT without difficulty. Family was concerned about confusion/facial droop. Patient had an MRI which revealed no acute infarct. He had a duplex of the carotids suggestive of a high grade right carotid lesion, but follow up MRA revealed widely patent carotid arteries. The patient had some wheezing and was found to have small effusions. He was given one dose of lasix with excellent response. Patient was deemed to be appropriate for discharge back to the SNF. Of note, the patient has a chronically elevated WBC. No etiology has been identifed. He should follow up with his PCP for possible flow cytometry and further work up. Status at Discharge Cognitive/behavioral status at discharge: AT baseline Functional status at discharge: uses cane/walker Overall status at discharge: patient is back to baseline Time Spent with Patient Less than 30 minutes Exam Vital Signs (past 8 hours): - 04/11/18 04:35 04/11/18 07:00 04/11/18 08:15 Temperature 97.9 F 98.1 F Pulse Rate 102 H 78 Respiratory Rate 20 16 Blood Pressure 149/69 H 141/58 H Pulse Oximetry 96 93 97 Oxygen Delivery Method Room Air Oxygen Flow Rate 0 Narrative Exam Narrative: Pleasant male, says he does not feel well, but in no acute distress Lungs: decreased breath sounds but clear to auscultation CV: irregularly irregular nl S1 S2 Abd: soft/ non tender Ext: no edema Objective Labs Result Diagrams: 04/10/18 09:50 04/11/18 05:33 Labs: Laboratory Results - last 24 hr 04/10/18 04/10/18 04/11/18 09:50 09:50 05:33 WBC 18.9 H RBC 3.98 L Hgb 12.3 L Hct 37.7 L MCV 94.8 MCH 31.0 MCHC 32.7 RDW 15.1 H Plt Count 334 Total Counted 100 Seg Neutrophils % 74.0 H Band Neutrophils % 1.0 L Lymphocytes % (Manual) 18.0 L Monocytes % (Manual) 6.0 Eosinophils % (Manual) 1.0 L Neutrophils # (Manual) 00357 H RBC Morphology Normal morphology Sodium 141 140 Potassium 4.1 3.5 Chloride 108 H 106 Carbon Dioxide 25 28 BUN 13 15 Creatinine 0.60 L 0.60 L Estimated GFR > 60.0 > 60.0 BUN/Creatinine Ratio 21.7 25.0 H Glucose 95 94 Calcium 8.4 8.2 L B-Natriuretic Peptide 568.0 H Discharge Plan Discharge Plan Discharge Problem: Leukocytosis, Weakness Patient Disposition: SNF Transfer to: [facility] Transportation: Ambulance Discharge comment: 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 Needs flow cytometry or evaluation by Hematology I certify the postop hospital half-way care is medically necessary on a continuing basis for any conditions for which he/ she received care during this hospitalization.: Yes The receiving facility has agreed to accept transfer and provide medical treatment.: Yes Discharge Med Rec/Prescriptions Prescriptions: No Action multivitamin Tablet 1 tab PO DAILY RF: 0 acetaminophen 325 mg Tablet 650 mg PO Q4H PRN (Reason: Pain, Mild) RF: 0 loperamide 2 mg Capsule 2 mg PO Q6H PRN (Reason: Diarrhea) RF: 0 hydrocodone-acetaminophen 5-325 mg tablet 0.5 tab PO QAM RF: 0 cyanocobalamin (vitamin B-12) [Vitamin B-12] 1,000 mcg Tablet 1,000 mcg PO DAILY RF: 0 aspirin 81 mg Tablet,Delayed Release (Dr/Ec) 81 mg PO DAILY RF: 0 acetaminophen 500 mg Tablet 500 mg PO QID RF: 0 ascorbic acid (vitamin C) [Vitamin C] 500 mg Tablet 500 mg PO BID RF: 0 tamsulosin 0.4 mg capsule,extended release 24hr 0.4 mg PO DAILY RF: 0 metoprolol tartrate 50 mg tablet 50 mg PO BID RF: 0 sertraline 25 mg tablet 25 mg PO DAILY RF: 0 Lactobacillus acidophilus [Acidophilus] Capsule 2 cap PO BID RF: 0 ondansetron 4 mg Tablet,Disintegrating 4 mg PO Q4H PRN (Reason: Nausea) RF: 0 sodium chloride [Saline Mist] 0.65 % Aerosol,Tomball 1 spray Intranasal QID RF: 0 psyllium seed (sugar) [Reguloid] Powder 1 scoop/day PO DAILY RF: 0 cholecalciferol (vitamin D3) [Vitamin D3] 1,000 unit Tablet 1,000 units PO DAILY RF: 0 mesalamine 1.2 gram tablet,delayed release (DR/EC) 2 tab PO DAILY RF: 0 diclofenac sodium 1 % gel 2 g Topical TID RF: 0 Provider Discharge Instructions Diet: Low-sodium Liquid consistency: Normal/Thin Food texture: Regular Skin/Wound/Dressing Care Report to your healthcare provider any signs of infection, such as:: chills, fever Special Rehabilitation Services Reason for rehabilitation: Recovery r/t decondition Rehab type: Physical therapy, Occupational therapy and Speech therapy Restrictions to mobility: none. Speech for cognitive eval Discharge Data Primary Care Provider: Rolanda Aparicio Attending Provider: Fady Dutta [facility] Date/Time: 04/07/18 15:10 Quality VTE Deep Vein Thrombosis/Pulmonary Embolism Present on Admission: No
--- NOTE | 2018-04-11 11:05 | PT.IPTN ---
Current Diagnoses Elevated white blood cell count, unspecified (04/07/18) Unspecified atrial fibrillation (04/07/18) Acute diastolic (congestive) heart failure (04/07/18) Disorientation, unspecified (04/07/18) Weakness (04/07/18) Unspecified fall, initial encounter (04/07/18) Physical Therapy Treatment Note M2 PT-IP Current Condition Start: 04/07/18 09:17 Freq: Status: Active Protocol: Document 04/07/18 15:56 RCC (Rec: 04/07/18 16:03 RCC [id number]) Physical Therapy Current Condition Current Condition Evaluation Date 04/07/18 Treatment Diagnosis frequent falls, gait disturbance, impaired activity tolerance M3 PT-IP Subjective Start: 04/07/18 09:17 Freq: Status: Active Protocol: Document 04/11/18 11:05 GGD (Rec: 04/11/18 12:06 GGD [id number]) Subjective Physical Therapy Visit Type Type Treatment Note Visit Start Time 10:50 Visit Stop Time 11:05 Total Visit Minutes 15 Number of BRAKE REPAIRER Visits 3 Physical Therapy Visit Comments Patient Comments Pt willing to walk and sit in chair. Therapy Pain Assessment Pain When Pain Assessed At Rest Pain Present Pain Present Pain Reported Location Right Shoulder Scale Used pain scale not stated M4 PT-IP Mobility and Gait Start: 04/07/18 09:17 Freq: Status: Active Protocol: Document 04/11/18 11:05 GGD (Rec: 04/11/18 12:06 GGD [id number]) PT-Bed Mobility Assessment Supine to Sit Supine to Sit Moderate Assistance 1 Person Assistance Bedrails Scooting Scooting to Edge of Bed Moderate Assistance PT-Transfer Assessment Sit to and From Stand Sit to and from Stand Contact Guard Assistance Use of Upper Extremities Equipment Transfer Assistive Device Gait Belt Front Wheeled Walker Orthotic/Prosthetic Devices or Brace: No Transfers Transfer Destination Chair Gait Assessment Gait Gait Assistance Required: Minimum Assistance 1 Person Assist Distance (Feet) 80 Able to Maintain Weight Bearing Status Yes During Gait Assistive Devices Assistive Device Gait Belt Front Wheeled Walker Orthotic/Prosthetic Devices or Brace: No Gait Deviations General Gait Pattern Antalgic Decreased Stride Length Decreased Feet Clearance Lateral Trunk Lean Factors Limiting Gait Function Factors Limiting Gait Function Decreased Activity Tolerance Decreased Strength Poor Balance Poor Safety Awareness M5 PT-IP Objective Assessments Start: 04/07/18 09:17 Freq: Status: Active Protocol: Document 04/07/18 09:10 RCC (Rec: 04/07/18 10:03 RCC [id number]) Orientation Orientation/Cognition Level of Alertness Alert Gross Range of Motion Upper Extremity ROM Impairments R shoulder flexion to 40 degrees, no movement of R scapula with attempted ROM Lower Extremity ROM Impairments limited DF bilaterally Strength Upper Extremity Strength Shoulder R shoulder not tested due to pain Lower Extremity Strength Hip flexion: L 4/5, R4-/5 Knee flexion: L 5/5, R 4/5; extension: L 5/5, R 5/5 Ankle DF: L 5/5, R 4/5 Sensation Assessment Sensation Gross Sensation WNL Muscle Tone Muscle Tone WNL Yes M6 PT-IP Treatment Start: 04/07/18 09:17 Freq: Status: Active Protocol: Document 04/09/18 11:25 AB (Rec: 04/09/18 13:28 AB [id number]) Physical Therapy Treatment Education Education Provided Precautions Safety M7 PT-IP Assessment and Plan Start: 04/07/18 09:17 Freq: Status: Active Protocol: Document 04/11/18 11:05 GGD (Rec: 04/11/18 12:06 GGD [id number]) PT Summary Assessment and Plan Summary Assessment Summary Pt improving with sit to stand . He still needs mod A for bed mobility. He had no SOB with gait. Frequency of Treatment Frequency Of Treatment Twice a Day Treatment Plan Physical Therapy Treatment Plan Bed Mobility Training Transfer Training Gait Training Therapeutic Exercise Balance Retraining Hot or Cold Pack Neuromuscular Re-ed Manual Therapy Recommendations To Nursing Amount of Assist Needed 2 Person Assist Discharge Recommendations PT Discharge Recommendations SNF Rehab
--- NOTE | 2018-04-11 11:13 | PC.NURSE ---
Addendum entered by Shanon Vogel R.N. 04/11/18 14:53: I agree with all student nurse charting, as I have supervised with Pt care. Original Note: Addendum entered by Shanon Vogel R.N. 04/11/18 12:43: 1200 SN Coral restarted IV successfully, Ca started, Platinum x1 for pain. Nephew called for update, updated on cancelled D/c order and continued monitoring of HR. Original Note: IV infiltrated, removed with SN Coral. Will address with Dr Gomez if reinsertion needed, as D/c planned for later today. After eval of HR with PT activity, HR sustained >110's will reinsert IV line and adjust medication prior to D/c Dr Gomez aware.
--- NOTE | 2018-04-11 12:08 | PM.PN.1 ---
Subjective Date Patient Seen: 04/11/18 Interval history: Patient did very well yesterday. Was able to ambulate with PT without difficulty. Today he was a little dizzy upon standing, His heart rate was well controlled at rest but up to 118 with activity He is no longer orthostatic. He reports shoulder pain today Exam Vital Signs (past 8 hours): - 04/11/18 04:35 04/11/18 07:00 04/11/18 08:15 Temperature 97.9 F 98.1 F Pulse Rate 102 H 78 Pulse Rate [Orthostatic Lying] Pulse Rate [Orthostatic Sitting] Pulse Rate [Orthostatic Standing] Respiratory Rate 20 16 Blood Pressure 149/69 H 141/58 H Blood Pressure [Orthostatic Lying] Blood Pressure [Orthostatic Sitting] Blood Pressure [Orthostatic Standing] Pulse Oximetry 96 93 97 04/11/18 10:32 Temperature Pulse Rate Pulse Rate [Orthostatic Lying] 84 Pulse Rate [Orthostatic Sitting] 90 Pulse Rate [Orthostatic Standing] 108 H Respiratory Rate Blood Pressure Blood Pressure [Orthostatic Lying] 131/63 Blood Pressure [Orthostatic Sitting] 137/63 Blood Pressure [Orthostatic Standing] 134/67 Pulse Oximetry Oxygen Delivery Method Room Air Oxygen Flow Rate 0 Narrative Exam Narrative: Pleasant male in NAD Lungs: decreased breath sounds but clear to auscultation CV : irreglarly irregular, Nl Sl S2 2/6 EARLINE Abd: soft/ non tender/ non distended Chest wall : healed bruising Ext: no edema Objective Labs Result Diagrams: 04/10/18 09:50 04/11/18 05:33 Labs: Laboratory Results - last 24 hr 04/11/18 05:33 Sodium 140 Potassium 3.5 Chloride 106 Carbon Dioxide 28 BUN 15 Creatinine 0.60 L Estimated GFR > 60.0 BUN/Creatinine Ratio 25.0 H Glucose 94 Calcium 8.2 L Assessment & Plan (1) Atrial fibrillation with rapid ventricular response: Problem details: Will discontinue Cardizem, resume metroprolol and load with 1 gram of digoxin continue dig/and metoprolol. Given multiple falls no anticoagulation. Will increase metoprolol to 50 mg three times daily. Need to follow blood pressure closely to ensure he does not become orthostatic Current visit: Yes Status: Acute (2) Acute diastolic heart failure: Problem details: Improved Current visit: Yes Status: Acute (3) Acute delirium: Problem details: suspect chronic or due to medications and being in the hospital. Will check duplex of carotids and follow up further At baseline Current visit: Yes Status: Acute (4) Fall: Problem details: as above continue PT/OT Current visit: Yes Status: Acute (5) Leukocytosis: Problem details: concern for Chronic lymphocytic leukemia given the chronicity. Outpatient work up for this Qualifiers: Leukocytosis type: unspecified Qualified Code(s): D72.829 - Elevated white blood cell count, unspecified Current visit: Yes Status: Acute (6) Orthostatic hypotension: Problem details: Will follow closely Continue PT/OT for weakness Current visit: Yes Status: Acute Quality VTE Deep Vein Thrombosis/Pulmonary Embolism Present on Admission: No
[2018-04-11] MEDS: METOPROLOL IR 50 MG TABLET PO ×2 (12:27→20:44)
[2018-04-11] MEDS: HYDROCODONE/ACET 5/325 TABLET 1 TAB PO (12:27)
--- NOTE | 2018-04-11 13:27 | PC.NURSE ---
Addendum entered by Mimi Alcala 04/11/18 14:31: see PT note/MD report regarding delay of discharge. Original Note: Day shift note: Assumed pt care at 0700. pt a/o x3, bed alarm in place, call light within reach and bed in lowest locked position. Pt has been turned Q2 hour and OOB with PT and staff throughout day. IV in R wrist infiltrated, new IV in L arm placed by this SN. Pt medicated for pain per EMAR at 1230. Will continue to monitor HR at this time, plan for D/C tomorrow.
--- NOTE | 2018-04-11 15:11 | CM.DPC ---
DCP Cont: DC held today. TC placed to Rosa Nirav#[phone], covering for [facility] admissions. Updated her w/ DCP. Pt okay to come tomorrow, Sunday, if medically stable. JW
[2018-04-11] MEDS: DOCUSATE 100 MG CAPSULE PO (20:44)
[2018-04-11] MEDS: SENNOSIDES 8.6 MG TABLET 17.2 MG PO (20:45)
[2018-04-12] VITALS (10 sets, daily range): BP systolic 133–157; BP diastolic 57–79; PULSE 75–106; RESP 20–28; TEMP 36.4–36.6; O2SAT 96–101
[2018-04-12] MEDS: ACETAMINOPHEN 325 MG TABLET 650 MG PO (00:21)
--- NOTE | 2018-04-12 00:34 | PC.NURSE ---
Patient is alert and oriented. Breath sounds diminished but CTA with RA sat of 96%. Does become audibly wheezy when repositioned. HR irregular with telemetry reading of afib CVR. Denies nausea. BT present and abdomen is soft. Is incontinent of B&B. Not turning himself so is being repositioned q2h. Extensive bruising on bilateral UE and right anterior chest with additional bruising at right neck base and posterior right shoulder. Bilateral arms still appear puffy and fragile skin. Reddened, excoriated perineum so zinc oxide barrier cream applied with each incontinence. Complains of chronic right shoulder pain with severity of 3/10; medicated with Tylenol. Fall risk score is high and bed alarm is activated.
[2018-04-12 06:59] LABS: Hematocrit 34.6 % (41-53); Hemoglobin 11.3 g/dL (13.5-17.5); Mean Corpuscular HGB Conc 32.7 % (30-36); Mean Corpuscular Hemoglobin 30.8 PG (26-34); Mean Corpuscular Volume 94.2 fL (80-100); Platelet Count 312 X10^3/uL (150-400); Red Blood Cell Count 3.67 X10^6/uL (4.5-5.9); Red Cell Distribution Width 14.7 % (11.6-14.8); White Blood Cell Count 14.7 X10^3/uL (4.5-11.0)
[2018-04-12 07:00] LABS: Add Manual Diff / Slide Review YES
[2018-04-12 07:26] LABS: Erythrocyte Sedimentation Rate 44 MM/HR (0-15)
[2018-04-12 07:33] LABS: Alanine Aminotransferase 32 IU/L (21-72); Albumin 2.7 g/dL (3.5-5.0); Albumin Globulin Ratio 0.9 (1.0-2.8); Alkaline Phosphatase 93 U/L (38-126); Aspartate Aminotransferase 26 IU/L (17-59); Bilirubin Total 0.6 mg/dL (0.2-1.3); Blood Urea Nitrogen 15 mg/dL (9-20); Calcium 8.9 mg/dL (8.4-10.2); Carbon Dioxide 30 mmol/L (22-32); Chloride 104 mmol/L (98-107); Estimated Glomerular Filt Rate > 60.0 mL/min (>60); Globulin 2.9 g/dL (1.7-4.1); Glucose 89 mg/dL (80-110); HEMOLYSIS < 15 (0-50); Potassium 3.4 mmol/L (3.4-5.1); Sodium 141 mmol/L (137-145); Total Protein 5.6 g/dL (6.3-8.2)
[2018-04-12 07:35] LABS: Anisocytosis 1+; Neutrophils Absolute Manual 10143 /uL (3000-5900); Total Cells Counted 100
[2018-04-12 08:54] LABS: High Sensitivity CRP - Cardiac > 3.0 mg/L (1.0-3.0)
--- NOTE | 2018-04-12 09:30 | PT.IPTN ---
Current Diagnoses Elevated white blood cell count, unspecified (04/07/18) Unspecified atrial fibrillation (04/07/18) Acute diastolic (congestive) heart failure (04/07/18) Orthostatic hypotension (04/07/18) Disorientation, unspecified (04/07/18) Weakness (04/07/18) Unspecified fall, initial encounter (04/07/18) Physical Therapy Treatment Note M2 PT-IP Current Condition Start: 04/07/18 09:17 Freq: Status: Active Protocol: Document 04/07/18 15:56 RCC (Rec: 04/07/18 16:03 RCC [id number]) Physical Therapy Current Condition Current Condition Evaluation Date 04/07/18 Treatment Diagnosis frequent falls, gait disturbance, impaired activity tolerance M3 PT-IP Subjective Start: 04/07/18 09:17 Freq: Status: Active Protocol: Document 04/12/18 09:30 GGD (Rec: 04/12/18 11:45 GGD [id number]) Subjective Physical Therapy Visit Type Type Treatment Note Visit Start Time 09:15 Visit Stop Time 09:30 Total Visit Minutes 15 Number of BRONC BREAKER Visits 4 Physical Therapy Visit Comments Patient Comments Pt states that he would walk. Therapy Pain Assessment Pain When Pain Assessed At Rest Pain Present Pain Present Pain Reported Location Right Shoulder Scale Used pain scale not stated M4 PT-IP Mobility and Gait Start: 04/07/18 09:17 Freq: Status: Active Protocol: Document 04/12/18 09:30 GGD (Rec: 04/12/18 11:45 GGD [id number]) PT-Bed Mobility Assessment Supine to Sit Supine to Sit Minimal Assistance 1 Person Assistance Head of Bed Elevated Sit to Supine Sit to Supine Moderate Assistance 1 Person Assistance Scooting Scooting to Edge of Bed Minimal Assistance PT-Transfer Assessment Sit to and From Stand Sit to and from Stand Contact Guard Assistance Use of Upper Extremities Equipment Transfer Assistive Device Gait Belt Front Wheeled Walker Orthotic/Prosthetic Devices or Brace: No Transfers Transfer Destination Bed Gait Assessment Gait Gait Assistance Required: Minimum Assistance 1 Person Assist Distance (Feet) 80 Able to Maintain Weight Bearing Status Yes During Gait Assistive Devices Assistive Device Gait Belt Front Wheeled Walker Orthotic/Prosthetic Devices or Brace: No Gait Deviations General Gait Pattern Antalgic Decreased Stride Length Decreased Feet Clearance Lateral Trunk Lean Factors Limiting Gait Function Factors Limiting Gait Function Decreased Activity Tolerance Decreased Strength Poor Balance Poor Safety Awareness Comments Gait Comments O2 on RA at rest 95% with activity 85%, HR at rest 78 with activity 150. After 2 minutes of rest O2 94% and HR 95 M5 PT-IP Objective Assessments Start: 04/07/18 09:17 Freq: Status: Active Protocol: Document 04/07/18 09:10 RCC (Rec: 04/07/18 10:03 RCC [id number]) Orientation Orientation/Cognition Level of Alertness Alert Gross Range of Motion Upper Extremity ROM Impairments R shoulder flexion to 40 degrees, no movement of R scapula with attempted ROM Lower Extremity ROM Impairments limited DF bilaterally Strength Upper Extremity Strength Shoulder R shoulder not tested due to pain Lower Extremity Strength Hip flexion: L 4/5, R4-/5 Knee flexion: L 5/5, R 4/5; extension: L 5/5, R 5/5 Ankle DF: L 5/5, R 4/5 Sensation Assessment Sensation Gross Sensation WNL Muscle Tone Muscle Tone WNL Yes M6 PT-IP Treatment Start: 04/07/18 09:17 Freq: Status: Active Protocol: Document 04/09/18 11:25 AB (Rec: 04/09/18 13:28 AB [id number]) Physical Therapy Treatment Education Education Provided Precautions Safety M7 PT-IP Assessment and Plan Start: 04/07/18 09:17 Freq: Status: Active Protocol: Document 04/12/18 09:30 GGD (Rec: 04/12/18 11:45 GGD [id number]) PT Summary Assessment and Plan Summary Assessment Summary Pt needs assistance with bed mobility. He needs cues for safety with FWW and gait. He improved with bed mobility with HOB elevated. He is improving with sit <> stand control. Frequency of Treatment Frequency Of Treatment Twice a Day Treatment Plan Physical Therapy Treatment Plan Bed Mobility Training Transfer Training Gait Training Therapeutic Exercise Balance Retraining Hot or Cold Pack Neuromuscular Re-ed Manual Therapy Recommendations To Nursing Amount of Assist Needed 2 Person Assist Discharge Recommendations PT Discharge Recommendations SNF Rehab
[2018-04-12] MEDS: HYDROCODONE/ACET 5/325 TABLET 1 TAB PO (09:43)
[2018-04-12] MEDS: SODIUM CHLORIDE 0.9% FLUSH 10 ML IV ×2 (09:44→21:36)
[2018-04-12] MEDS: METOPROLOL IR 50 MG TABLET PO (09:44)
[2018-04-12] MEDS: ENOXAPARIN 40 MG/0.4 ML SYRINGE SUBCUT (10:14)
--- NOTE | 2018-04-12 10:33 | PC.NURSE ---
AM NOTE - awake, oriented, nephew in this am, phys therapy this am, up ambul hallway, incr sob w/activity and hr briefly elev 140's, ret to bed and at rest hr 66, some expir wheezes, bs dim, 02 sat 98% ra, complaint r shoulder discomfort, discussed medications and given norco 5/325mg x1 tab after breakfast, pt has extensive bruising r ue, across chest and torso, staining florecita ue, knee teds w 1+ pedal edema.
--- NOTE | 2018-04-12 11:01 | OT.IP.TRT ---
Current Diagnoses Elevated white blood cell count, unspecified (04/07/18) Unspecified atrial fibrillation (04/07/18) Acute diastolic (congestive) heart failure (04/07/18) Orthostatic hypotension (04/07/18) Disorientation, unspecified (04/07/18) Weakness (04/07/18) Unspecified fall, initial encounter (04/07/18) Occupational Therapy Treatment Note M2 OT-IP Current Condition Start: 04/07/18 10:58 Freq: Status: Active Protocol: Document 04/09/18 11:00 PJM (Rec: 04/09/18 17:29 PJM [id number]) Occupational Therapy Current Condition Current Condition Evaluation Date 04/09/18 Treatment Diagnosis decreased self care, functional mobility due to recurrent falls Diagnosis Onset Date 04/06/18 Post Operative Precautions Other Precautions fall risk; bed/chair alarm M3 OT- IP Subjective and Pain Start: 04/07/18 10:58 Freq: Status: Active Protocol: Document 04/12/18 10:58 [facility] (Rec: 04/12/18 11:00 [facility] [id number]) OT- Subjective Occupational Therapy Visit Type Type Patient Refusal Notes Pt refusing to do OT treatment as pt states, I am too tired and just worked with physical therapy earlier.
[2018-04-12] MEDS: dilTIAZem CD 120 MG CAP PO (12:06)
--- NOTE | 2018-04-12 13:45 | OT.IP.TRT ---
Current Diagnoses Elevated white blood cell count, unspecified (04/07/18) Unspecified atrial fibrillation (04/07/18) Acute diastolic (congestive) heart failure (04/07/18) Orthostatic hypotension (04/07/18) Disorientation, unspecified (04/07/18) Weakness (04/07/18) Unspecified fall, initial encounter (04/07/18) Occupational Therapy Treatment Note M2 OT-IP Current Condition Start: 04/07/18 10:58 Freq: Status: Active Protocol: Document 04/09/18 11:00 PJ (Rec: 04/09/18 17:29 [facility] [id number]) Occupational Therapy Current Condition Current Condition Evaluation Date 04/09/18 Treatment Diagnosis decreased self care, functional mobility due to recurrent falls Diagnosis Onset Date 04/06/18 Post Operative Precautions Other Precautions fall risk; bed/chair alarm M3 OT- IP Subjective and Pain Start: 04/07/18 10:58 Freq: Status: Active Protocol: Document 04/12/18 13:39 [facility] (Rec: 04/12/18 13:45 [facility] [id number]) OT- Subjective Occupational Therapy Visit Type Type Treatment Note Visit Start Time 13:13 Visit Stop Time 13:38 Total Visit Minutes 25 Occupational Therapy Visit Comments Patient/Caregiver Goals Pt agreeable to get up to take orthostatic blood pressures as requested by nursing staff. OT Pain Assessment Pain When Pain Assessed At Rest Pain Present Pain Present Pain Reported M4 OT- IP ADL's Start: 04/07/18 10:58 Freq: Status: Active Protocol: Document 04/12/18 13:39 [facility] (Rec: 04/12/18 13:45 [facility] [id number]) OT ADL-Toileting General Evaluation Toileting Ability Total Assistance Comments OT Toileting Comments Dependent for hygiene and brief change. EMT I/85 came in to assist with hygiene and brief change. M5 OT- IP IADL's Start: 04/07/18 10:58 Freq: Status: Active Protocol: Document 04/09/18 11:00 PJ (Rec: 04/09/18 17:29 [facility] [id number]) OT-Instrumental Activities of Daily Living Deficits IADL Deficits Identified Deficits Home Safety Awareness Awareness of Need for Assistance at Home Decreased Awareness Ability to Problem Solve Emergency Unable to Problem Solve Situations Medication Management Medication Management Caregiver Administers Money Management Money Management Caregiver Provides Assistance Meal Preparation Meal Preparation Caregiver Provides Assist Instructor Substitute Cosmetology Instructor Substitute Cosmetology Caregiver Provides Assist Driving Driving Caregiver Provides Assist M6 OT- IP Functional Cognition Start: 04/07/18 10:58 Freq: Status: Active Protocol: Document 04/12/18 13:39 [facility] (Rec: 04/12/18 13:45 [facility] [id number]) Cognitive Factors Limiting Selfcare Function Cognitive Ability Level of Alertness Alert Patient Orientation Name Place Situation Attention Span Ability Capable of Focused Attention Ability to Follow Commands Able to Follow One Step Commands Memory Description Short Term Intact Problem Solving Ability Unable to Identify Errors Needs Assist to Identify Solutions Executive Function Ability Unable to Remember Details Cognitive Comments Cognitive Assessment Comments Pt takes increased time to follow one step commands. M7 OT- IP Mobility and Balance Start: 04/07/18 10:58 Freq: Status: Active Protocol: Document 04/12/18 13:39 [facility] (Rec: 04/12/18 13:45 [facility] [id number]) OT- Bed Mobility Assessment Rolling Type of Rolling Roll to Right Level of Assistance Moderate Assistance 1 Person Assistance Supine to Sit Supine to Sit Assist Maximum Assistance 1 Person Assistance Sit to Supine Sit to Supine Assist Maximum Assistance 1 Person Assistance Scooting Scooting to Edge of Bed Maximum Assistance OT-Transfer Assessment Comments Mobility Comments BP take in supine 133/59 hr 97 , in sitting 155/72 hr 104 and too tired to attempt to stand at this time and wanting to get back in bed. OT- Balance Assessment Sitting Balance and Reactions Static Sitting Balance Ability Fair Dynamic Sitting Balance Ability Poor M8 OT- IP Objective Assessments Start: 04/07/18 10:58 Freq: Status: Active Protocol: Document 04/09/18 11:00 PJM (Rec: 04/09/18 17:29 PJM [id number]) OT Gross Range of Motion Upper Extremity Range of Motion Assessment Right Impaired ROM Impairments R shoulder scaption ~40 degreesl distal AROM WFL LUE WFL for age throughout OT Strength Upper Extremity Strength Assessment Bilaterally Impaired Shoulder R: 3-/5 L: 3+/5 Elbow R: 3+/5 L: 4-/5 Hand R: 4-/5 L: 4/5 Hand Asthma Educator Strength Hand Dominance Right Comments Strength Comments R shoulder pain interferes with functional use of RUE OT- Coordination Assessment Upper Extremity Finger to Nose Test Right UE Impaired Finger Tapping Test Right UE Impaired Comments Coordination Comments R shoulder pain interferes with functional use of RUE OT-Muscle Tone Assessment Muscle Tone WNL Yes OT Sensation Assessment Comments Summary Comments Pt detects lt touch in BUE M9 OT- IP Assessment and Plan Start: 04/07/18 10:58 Freq: Status: Active Protocol: Document 04/12/18 13:39 [facility] (Rec: 04/12/18 13:45 [facility] [id number]) OT Summary Assessment and Plan Summary Assessment Summary Pt appears to need more assist today for functional mobility and pt states feels weaker. When medically stable, pt would benefit from skilled rehab. Goals Days to Meet Goals 7 Frequency of Treatment Frequency Of Treatment Once a Day Treatment Plan OT Treatment Plan ADL Training Functional Mobility Patient/Family Education Discharge Planning Discharge Recommendations OT Discharge Recommendations SNF Rehab
--- NOTE | 2018-04-12 14:28 | PT.IPTN ---
Current Diagnoses Elevated white blood cell count, unspecified (04/07/18) Unspecified atrial fibrillation (04/07/18) Acute diastolic (congestive) heart failure (04/07/18) Orthostatic hypotension (04/07/18) Disorientation, unspecified (04/07/18) Weakness (04/07/18) Unspecified fall, initial encounter (04/07/18) Physical Therapy Treatment Note M2 PT-IP Current Condition Start: 04/07/18 09:17 Freq: Status: Active Protocol: Document 04/07/18 15:56 RCC (Rec: 04/07/18 16:03 RCC [id number]) Physical Therapy Current Condition Current Condition Evaluation Date 04/07/18 Treatment Diagnosis frequent falls, gait disturbance, impaired activity tolerance M3 PT-IP Subjective Start: 04/07/18 09:17 Freq: Status: Active Protocol: Document 04/12/18 14:27 GGD (Rec: 04/12/18 14:28 GGD [id number]) Subjective Physical Therapy Visit Type Type Patient Refusal Notes Pt refused states that he is to tired. Will see in AM. Recommendations To Nursing Amount of Assist Needed 2 Person Assist Discharge Recommendations PT Discharge Recommendations SNF Rehab
--- NOTE | 2018-04-12 16:18 | P.PN_ITS ---
Subjective Date Patient Seen: 04/12/18 Time Patient Seen: 12:17 Interval history: History of present illness Patient with a rapid AFib that is recurrent when he is ambulated with physical therapy. Patient was originally admitted for gait disturbance increased frequent falls which I suspect may be related to the rapid AFib episodes that if he come quite apparent during this hospital course Review of systems No chest pain or shortness of breath no nausea Exam Vital Signs (past 8 hours): - 04/12/18 10:22 04/12/18 12:00 04/12/18 13:00 Temperature Pulse Rate [Orthostatic Lying] 97 H Pulse Rate [Orthostatic Sitting] 104 H Respiratory Rate Blood Pressure 152/79 H Blood Pressure [Orthostatic Lying] 133/57 L Blood Pressure [Orthostatic Sitting] 155/72 H Pulse Oximetry 98 04/12/18 15:30 Temperature 98 F Pulse Rate [Orthostatic Lying] Pulse Rate [Orthostatic Sitting] Respiratory Rate 21 Blood Pressure 140/78 Blood Pressure [Orthostatic Lying] Blood Pressure [Orthostatic Sitting] Pulse Oximetry 101 H Oxygen Delivery Method Room Air Oxygen Flow Rate 0 Narrative Exam Narrative: General appearance no apparent distress patient is awake Psychiatric well oriented to time place and person mood is pleasant patient is cooperative Respiratory fairly clear to auscultation no wheezes no crackles Cardiovascular regular rate and rhythm this morning early before onset of the AFib +3 pulses noted to extremities GI fairly benign soft nontender positive bowel sounds no bruits Neurologic no focal neurologic changes cranial nerves 2-12 grossly intact Objective Labs Result Diagrams: 04/12/18 06:40 04/12/18 06:40 Labs: Laboratory Results - last 24 hr 04/12/18 04/12/18 06:40 06:40 WBC 14.7 H RBC 3.67 L Hgb 11.3 L Hct 34.6 L MCV 94.2 MCH 30.8 MCHC 32.7 RDW 14.7 Plt Count 312 Neut % (Auto) Not Reportable Lymph % (Auto) Not Reportable [place] % (Auto) Not Reportable Eos % (Auto) Not Reportable Baso % (Auto) Not Reportable Total Counted 100 Seg Neutrophils % 69.0 Lymphocytes % (Manual) 15.0 L Monocytes % (Manual) 13.0 H Eosinophils % (Manual) 3.0 Neutrophils # (Manual) 30161 H RBC Morphology Not Reportable Anisocytosis 1+ H ESR 44 H Sodium 141 Potassium 3.4 Chloride 104 Carbon Dioxide 30 BUN 15 Creatinine 0.60 L Estimated GFR > 60.0 BUN/Creatinine Ratio 25.0 H Glucose 89 Calcium 8.9 Total Bilirubin 0.6 AST 26 ALT 32 Alkaline Phosphatase 93 C-React Prot High Sens > 3.0 H Total Protein 5.6 L Albumin 2.7 L Globulin 2.9 Albumin/Globulin Ratio 0.9 L Assessment & Plan Plan: Assessment/Plan Narrative: Atrial fibrillation with rapid ventricular response: Discussed the case with Dr. Watt post closer behavioral interventionist today [employer] will see the patient later today after clinic In the [facility] time will change the medications as follow Metoprolol succinate 50 mg b.i.d. and diltiazem XL 120 mg daily Acute delirium: Unclear etiology to the delirium. Patient likely with underlying cognitive decline suspect chronic or due to medications and being in the hospital. Frequent falls prior to admission Note patient with tachyarrhythmias when he has ambulated by physical therapy during this hospital course The frequent falls may be related to a undiagnosed rapid tachyarrhythmia Leukocytosis: concern for Chronic lymphocytic leukemia given the chronicity. Consider referral to the tumbler dyeing machine operator upon discharge Orthostatic hypotension: Patient adequately hydrated during hospital course Time Spent With Patient Time with patient: 25 - 35 minutes (25 min) Quality VTE Deep Vein Thrombosis/Pulmonary Embolism Present on Admission: No
--- NOTE | 2018-04-12 17:42 | PM.CN ---
History of Present Illness Date Patient Seen: 04/12/18 Chief complaint: FALL Reason for consult: atrial fibrillation Narrative: This 82 years old pleasant male who has a history of polymyalgia rheumatica, essential hypertension, dyslipidemia, history of coronary artery disease but when I asked patient, denies coronary artery disease, who lives in assisted living facility, history of colon cancer status post resection, history of heart failure got admitted on April 06, 2018 because of history of recurrent fall. In the hospital patient developed A. fib with fast ventricular rate. Patient was started on Cardizem. Today hospitalist team asked cardiology to see as heart rate is still up. He had 2-D echo in April 07, 2018 that time LV ejection fraction 60-65%, normal right ventricular function, mild left atrium enlargement without any significant valvular pathology. Carotid Doppler suggest that patient may have significant right internal carotid artery disease however MR neck did not reveal any significant carotid artery disease. 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 At present patient is sitting on bed. He has not of twitching in his eyes. He feels weak all over. No active chest pain or fever or chills or worsening shortness of breath or PND orthopnea or strokelike symptoms or active bleeding. [facility] Medical History Cataract (Acute) CHF (congestive heart failure) (Acute) Colon cancer (Acute) Coronary artery disease (Acute) Hyperlipidemia (Acute) Hypertension (Acute) Polymyalgia rheumatica (Acute) Surgical History H/O total hip arthroplasty (Acute) History of colon resection (Acute) Social History household members: spouse housing: assisted living facility Smoking Status: Former smoker alcohol intake: former Meds Home Medications Medication Instructions Recorded Confirmed Type Lactobacillus acidophilus 2 cap PO BID 12/14/17 04/07/18 History [Acidophilus] acetaminophen 500 mg PO QID 12/14/17 04/07/18 History acetaminophen 650 mg PO Q4H PRN 12/14/17 04/07/18 History ascorbic acid (vitamin C) [Vitamin 500 mg PO BID 12/14/17 04/06/18 History C] aspirin 81 mg PO DAILY 12/14/17 04/06/18 History cholecalciferol (vitamin D3) 1,000 units PO DAILY 12/14/17 04/07/18 History [Vitamin D3] cyanocobalamin (vitamin B-12) 1,000 mcg PO DAILY 12/14/17 04/07/18 History [Vitamin B-12] diclofenac sodium 2 g TOPICAL TID 12/14/17 04/07/18 History hydrocodone-acetaminophen 0.5 tab PO QAM 12/14/17 04/06/18 History loperamide 2 mg PO Q6H PRN 12/14/17 04/06/18 History mesalamine 2 tab PO DAILY 12/14/17 04/06/18 History metoprolol tartrate 50 mg PO BID 12/14/17 04/07/18 History multivitamin 1 tab PO DAILY 12/14/17 04/06/18 History ondansetron 4 mg PO Q4H PRN 12/14/17 04/06/18 History psyllium seed (sugar) [Reguloid] 1 scoop/day PO DAILY 12/14/17 04/06/18 History sertraline 25 mg PO DAILY 12/14/17 04/06/18 History sodium chloride [Saline Mist] 1 spray INTRANASAL QID 12/14/17 04/06/18 History tamsulosin 0.4 mg PO DAILY 12/14/17 04/06/18 History Allergies Allergy/AdvReac Type Severity Reaction Status Date / Time No Known Drug Allergies Allergy Verified 04/01/18 15:53 Review of Systems Review of Systems All systems reviewed & are unremarkable except as noted in HPI and below Exam Vital Signs (past 8 hours): - 04/12/18 10:22 04/12/18 12:00 04/12/18 13:00 Temperature Pulse Rate [Orthostatic Lying] 97 H Pulse Rate [Orthostatic Sitting] 104 H Respiratory Rate Blood Pressure 152/79 H Blood Pressure [Orthostatic Lying] 133/57 L Blood Pressure [Orthostatic Sitting] 155/72 H Pulse Oximetry 98 04/12/18 15:30 Temperature 98 F Pulse Rate [Orthostatic Lying] Pulse Rate [Orthostatic Sitting] Respiratory Rate 21 Blood Pressure 140/78 Blood Pressure [Orthostatic Lying] Blood Pressure [Orthostatic Sitting] Pulse Oximetry 101 H Oxygen Delivery Method Room Air Oxygen Flow Rate 0 Const Other: appears chronically sick HENMT Other: twitching of predominantly right eyes Neck Other: no obvious JVD at present Chest Other: no chest wall tenderness Resp Other: no obvious crepitation or rhonchi Cardio Other: S1 variable, P2 not prominent, no obvious S3-S4 or significant murmur GI Other: nontender, no obvious pulsatile mass Neuro Other: alert oriented to time place and person however not able to lift his both legs against the resistance much. Feels weak all over Extrem Other: No significant pedal edema or evidence of critical limb ischemia. Objective Labs Result Diagrams: 04/12/18 06:40 04/12/18 06:40 Labs: Laboratory Results - last 24 hr 04/12/18 04/12/18 06:40 06:40 WBC 14.7 H RBC 3.67 L Hgb 11.3 L Hct 34.6 L MCV 94.2 MCH 30.8 MCHC 32.7 RDW 14.7 Plt Count 312 Neut % (Auto) Not Reportable Lymph % (Auto) Not Reportable [place] % (Auto) Not Reportable Eos % (Auto) Not Reportable Baso % (Auto) Not Reportable Total Counted 100 Seg Neutrophils % 69.0 Lymphocytes % (Manual) 15.0 L Monocytes % (Manual) 13.0 H Eosinophils % (Manual) 3.0 Neutrophils # (Manual) 76416 H RBC Morphology Not Reportable Anisocytosis 1+ H ESR 44 H Sodium 141 Potassium 3.4 Chloride 104 Carbon Dioxide 30 BUN 15 Creatinine 0.60 L Estimated GFR > 60.0 BUN/Creatinine Ratio 25.0 H Glucose 89 Calcium 8.9 Total Bilirubin 0.6 AST 26 ALT 32 Alkaline Phosphatase 93 C-React Prot High Sens > 3.0 H Total Protein 5.6 L Albumin 2.7 L Globulin 2.9 Albumin/Globulin Ratio 0.9 L Assessment & Plan (1) Atrial fibrillation with rapid ventricular response: Problem details: Will discontinue Cardizem, resume metroprolol and load with 1 gram of digoxin continue dig/and metoprolol. Given multiple falls no anticoagulation. Will increase metoprolol to 50 mg three times daily. Need to follow blood pressure closely to ensure he does not become orthostatic Current visit: Yes Status: Acute (2) Fall: Problem details: as above continue PT/OT Current visit: Yes Status: Acute (3) Polymyalgia rheumatica: Current visit: Yes Status: Acute (4) Diastolic dysfunction: Current visit: Yes Status: Acute (5) Hypokalemia: Current visit: Yes Status: Acute Plan: Assessment/Plan Narrative: patient is in persistent A. fib with intermittent fast ventricular rate. EKG today revealed atrial fibrillation with ventricular rate about [address]-T changes. QTC 402 ms. I daily considering his chads 2 vascular score, he should be on anticoagulation however looking into his overall medical conditions, recurrent fall, history of previous hemorrhagic lacunar stroke, he is at risk of significant bleeding hence aspirin will be a reasonable choice. For rate control I will recommend combination of beta joshua and calcium channel joshua. He has history of polymyalgia rheumatica. He has weakness all over. There is a possibility that his fall due to diffuse muscle weakness due to polymyalgia rheumatica. On recent echocardiogram overall systolic function was preserved. There is a possibility of diastolic dysfunction during tachycardia however clinically at present he is not significantly congested. He will need replacement of electrolytes. Will recommend keeping potassium more than 4. Repeat his electrolytes including magnesium. His TSH was elevated. I was told by the hospitalist team that his initial troponin was normal. If needed for better rate control, beta joshua and calcium channel joshua combination can be further increased. At present he is on metoprolol succinate 50 mg twice a day and Cardizem 120 mg daily. Discussed the plan with the hospitalist team. At this point of time cardiology will sign off. Please feel free to call us if needs further assistance. Total time spent for this consultation at least 75 minutes with more than 50% time [id number] counseling and coordination of care.
[2018-04-12] MEDS: POTASSIUM CHLORIDE 20 MEQ TAB 40 MEQ PO (19:05)
[2018-04-12] MEDS: METOPROLOL ER 50 MG TABLET PO (21:36)
[2018-04-13 00:13] VITALS: BP 143/66; PULSE 85; RESP 16; TEMP 36.4; O2SAT 96
--- NOTE | 2018-04-13 00:53 | PC.NURSE ---
Addendum entered by Dayo Adam R.N. 04/13/18 01:46: 0135: Awake, incontinent of urine and stool. Marina care given, barrier cream applied. Clean brief on. Turned and repositioned. Original Note: Director Energy Note: 0030: Resting in bed. IV in place in lt forearm. Teds on. Pt is wearing a brief for urinary incontinence. He remains on telemetry. No complaint of pain at this time.
[2018-04-13 05:48] LABS: Add Manual Diff / Slide Review NO; Basophils Percent Auto 0.3 % (0-2); Hematocrit 32.8 % (41-53); Lymphocytes Percent Auto 3.3 % (25-40); Mean Corpuscular HGB Conc 33.5 % (30-36); Mean Corpuscular Hemoglobin 31.4 PG (26-34); Mean Corpuscular Volume 93.7 fL (80-100); Neutrophils Absolute Auto 14700 /uL (3000-5900); Neutrophils Percent Auto 95.4 % (50-75); Platelet Count 338 X10^3/uL (150-400); Red Cell Distribution Width 14.9 % (11.6-14.8); White Blood Cell Count 15.4 X10^3/uL (4.5-11.0)
[2018-04-13 05:58] VITALS: BP 137/56; PULSE 75; RESP 16; TEMP 36.5; O2SAT 97
[2018-04-13 06:05] LABS: Alanine Aminotransferase 32 IU/L (21-72); Albumin 2.8 g/dL (3.5-5.0); Alkaline Phosphatase 97 U/L (38-126); Aspartate Aminotransferase 22 IU/L (17-59); BUN Creatinine Ratio 23.3 (6-22); Bilirubin Total 0.4 mg/dL (0.2-1.3); Blood Urea Nitrogen 14 mg/dL (9-20); Calcium 8.5 mg/dL (8.4-10.2); Carbon Dioxide 30 mmol/L (22-32); Chloride 103 mmol/L (98-107); Estimated Glomerular Filt Rate > 60.0 mL/min (>60); Globulin 2.8 g/dL (1.7-4.1); Glucose 147 mg/dL (80-110); HEMOLYSIS < 15 (0-50); Potassium 4.7 mmol/L (3.4-5.1); Sodium 138 mmol/L (137-145); Total Protein 5.6 g/dL (6.3-8.2)
[2018-04-13 08:00] VITALS: O2SAT 96
[2018-04-13 08:30] VITALS: BP 152/80; RESP 20; TEMP 36.7
[2018-04-13] MEDS: METOPROLOL ER 50 MG TABLET PO (09:11)
[2018-04-13] MEDS: ENOXAPARIN 40 MG/0.4 ML SYRINGE SUBCUT (09:12)
[2018-04-13] MEDS: dilTIAZem CD 120 MG CAP PO (09:12)
[2018-04-13] MEDS: SODIUM CHLORIDE 0.9% FLUSH 10 ML IV (09:15)
--- NOTE | 2018-04-13 09:30 | PT.IPTN ---
Current Diagnoses Elevated white blood cell count, unspecified (04/07/18) Hypokalemia (04/07/18) Unspecified atrial fibrillation (04/07/18) Acute diastolic (congestive) heart failure (04/07/18) Heart disease, unspecified (04/07/18) Orthostatic hypotension (04/07/18) Polymyalgia rheumatica (04/07/18) Disorientation, unspecified (04/07/18) Weakness (04/07/18) Unspecified fall, initial encounter (04/07/18) Physical Therapy Treatment Note M2 PT-IP Current Condition Start: 04/07/18 09:17 Freq: Status: Active Protocol: Document 04/07/18 15:56 RCC (Rec: 04/07/18 16:03 RCC [id number]) Physical Therapy Current Condition Current Condition Evaluation Date 04/07/18 Treatment Diagnosis frequent falls, gait disturbance, impaired activity tolerance M3 PT-IP Subjective Start: 04/07/18 09:17 Freq: Status: Active Protocol: Document 04/13/18 09:30 GGD (Rec: 04/13/18 12:27 GGD [email or web address]) Subjective Physical Therapy Visit Type Type Treatment Note Visit Start Time 09:05 Visit Stop Time 09:30 Total Visit Minutes 25 Number of JOINT CREASER Visits 5 Physical Therapy Visit Comments Patient Comments Pt states he feeling fair. M4 PT-IP Mobility and Gait Start: 04/07/18 09:17 Freq: Status: Active Protocol: Document 04/13/18 09:30 GGD (Rec: 04/13/18 12:27 GGD [id number]) PT-Bed Mobility Assessment Supine to Sit Supine to Sit Moderate Assistance 1 Person Assistance Head of Bed Elevated Bedrails Sit to Supine Sit to Supine Moderate Assistance 1 Person Assistance Scooting Scooting to Edge of Bed Moderate Assistance PT-Transfer Assessment Sit to and From Stand Sit to and from Stand Contact Guard Assistance Use of Upper Extremities Equipment Transfer Assistive Device Gait Belt Front Wheeled Walker Orthotic/Prosthetic Devices or Brace: No Transfers Transfer Destination Bed Gait Assessment Gait Gait Assistance Required: Minimum Assistance 1 Person Assist Distance (Feet) 50 Able to Maintain Weight Bearing Status Yes During Gait Assistive Devices Assistive Device Gait Belt Front Wheeled Walker Orthotic/Prosthetic Devices or Brace: No Gait Deviations General Gait Pattern Antalgic Decreased Stride Length Decreased Feet Clearance Lateral Trunk Lean Factors Limiting Gait Function Factors Limiting Gait Function Decreased Activity Tolerance Decreased Strength Poor Balance Poor Safety Awareness Comments Gait Comments O2 on RA at rest 97% with activity 93%, HR at rest 82 with activity 120. After 2 minutes of rest O2 94% and HR 100 M5 PT-IP Objective Assessments Start: 04/07/18 09:17 Freq: Status: Active Protocol: Document 04/07/18 09:10 RCC (Rec: 04/07/18 10:03 RCC [id number]) Orientation Orientation/Cognition Level of Alertness Alert Gross Range of Motion Upper Extremity ROM Impairments R shoulder flexion to 40 degrees, no movement of R scapula with attempted ROM Lower Extremity ROM Impairments limited DF bilaterally Strength Upper Extremity Strength Shoulder R shoulder not tested due to pain Lower Extremity Strength Hip flexion: L 4/5, R4-/5 Knee flexion: L 5/5, R 4/5; extension: L 5/5, R 5/5 Ankle DF: L 5/5, R 4/5 Sensation Assessment Sensation Gross Sensation WNL Muscle Tone Muscle Tone WNL Yes M6 PT-IP Treatment Start: 04/07/18 09:17 Freq: Status: Active Protocol: Document 04/09/18 11:25 AB (Rec: 04/09/18 13:28 AB [id number]) Physical Therapy Treatment Education Education Provided Precautions Safety M7 PT-IP Assessment and Plan Start: 04/07/18 09:17 Freq: Status: Active Protocol: Document 04/13/18 09:30 GGD (Rec: 04/13/18 12:27 GGD [id number]) PT Summary Assessment and Plan Summary Assessment Summary Pt needed increase in assistance for bed mobility. He had a decrease gait pace, step length and tolerance. He improving with sit <> stand and standing balance. Frequency of Treatment Frequency Of Treatment Twice a Day Treatment Plan Physical Therapy Treatment Plan Bed Mobility Training Transfer Training Gait Training Therapeutic Exercise Balance Retraining Hot or Cold Pack Neuromuscular Re-ed Manual Therapy Recommendations To Nursing Amount of Assist Needed 2 Person Assist Discharge Recommendations PT Discharge Recommendations SNF Rehab
[2018-04-13 13:00] VITALS: O2SAT 95
[2018-04-13 14:05] VITALS: BP 150/67; PULSE 74; RESP 20; TEMP 36.5; O2SAT 20
--- NOTE | 2018-04-13 14:50 | PM.DS.1 ---
History of Present Illness Date Patient Seen: 04/13/18 Time Patient Seen: 12:57 Chief complaint: FALL Narrative: History of present illness Patient is a 82 years of age male that is and lives with his in assisted living facility. Patient notes he has repeatedly been falling past week. It is unclear as to why this patient has suddenly been falling as often as he does. There was a recent CT of the head on a prior recent ER visit which was negative for any acute CVA. No MRI was done and follow-up. Patient denies any recent fevers and chills. No chest pain or cough or shortness of breath sensation noted. Patient is well oriented to time place person and seems to be able to answer the questions posed regarding his state of health in the past week. Discharge Providers Date of admission: 04/07/18 15:10 Primary care physician: JAVIER Schmitt Consults: 04/06/18 15:02 Consult to Carpet Yarn Winder Operator Routine Comment: 04/06/18 15:22 Consult to Occupational Therapy Evaluate & Treat Comment: Physician Instructions: Evaluate and treat 04/06/18 15:25 Consult to Physical Therapy Evaluate & Treat Comment: Physician Instructions: Evaluate and Treat Discharge provider: Fady Dutta MD Discharge Date: 04/13/18 Summary Discharge Diagnosis: Atrial fibrillation with rapid ventricular response: Discussed the case with Dr. Watt wood fuel pelletizer on 04/12 Recommended the following: Metoprolol succinate 50 mg b.i.d. and diltiazem XL 120 mg daily In a.m. today the heart rate was about 110 with ambulation and much better ventricular response with the AFib Patient will be continued on these 2 medications upon discharge to [facility] today Acute delirium. Resolved Unclear etiology to the delirium. Patient likely with underlying cognitive decline suspect chronic or due to medications and being in the hospital. Frequent falls prior to admission Note patient with tachyarrhythmias when he has ambulated by physical therapy during this hospital course The frequent falls may be related to a undiagnosed rapid tachyarrhythmia Patient also with history of polymyalgia rheumatica and may have difficulty with the hip and shoulder function. Leukocytosis: concern for Chronic lymphocytic leukemia given the chronicity. Consider PCP for referral to the ticket clerk upon discharge to consult Orthostatic hypotension: Resolved Patient adequately hydrated during hospital course No further orthostatic hypertension noted Hospital Course: Patient is a very pleasant 82 years of age male was admitted to the hospital because of gait disturbance and frequent falls During hospitalization patient is noted with rapid AFib that worsens with ambulation. Patient was provided various medication such as diltiazem 60 mg t.i.d. initially Which was changed by the next hospitalist to metoprolol. Patient continued to have these rapid ventricular responses with ambulation. Cardiology consult yesterday recommended patient on combination of the Diltiazem XL 120 mg with metoprolol succinate 50 mg p.o. b.i.d. Patient's ventricular response is been much improved with this medication adjustment In view of the patient having PMR I gave the patient 40 mg of Solu-Medrol IV yesterday 1 dose of 40 mg of Solu-Medrol today IV. Will defer to the PCP for further management regarding the PMR in the outpatient setting Physical therapy as noted patient is suitable for discharge. Status at Discharge Cognitive/behavioral status at discharge: Awake and alert in no apparent distress well oriented Respiratory clear to auscultation Cardiovascular with an irregular regular rhythm rate controlled about 100 per minute GI is benign soft nontender Extremities are warm Neurologic no focal neurologic changes Functional status at discharge: independent ambulation Time Spent with Patient Greater than 30 minutes (40 min) Exam Vital Signs (past 8 hours): - 04/13/18 08:30 04/13/18 14:05 Temperature 98.0 F 97.7 F Pulse Rate 74 Respiratory Rate 20 20 Blood Pressure 152/80 H 150/67 H Pulse Oximetry 20 L Oxygen Delivery Method Room Air Oxygen Flow Rate 0 Narrative Exam Narrative: General appearance no apparent distress patient is awake Psychiatric well oriented to time place and person mood is pleasant patient is cooperative Respiratory fairly clear to auscultation no wheezes no crackles Cardiovascular regular rate and rhythm this morning early before onset of the AFib +3 pulses noted to extremities GI fairly benign soft nontender positive bowel sounds no bruits Neurologic no focal neurologic changes cranial nerves 2-12 grossly intact Objective Labs Result Diagrams: 04/13/18 05:32 04/13/18 05:32 Labs: Laboratory Results - last 24 hr 04/13/18 04/13/18 05:32 05:32 WBC 15.4 H RBC 3.50 L Hgb 11.0 L Hct 32.8 L MCV 93.7 MCH 31.4 MCHC 33.5 RDW 14.9 H Plt Count 338 Neut % (Auto) 95.4 H Lymph % (Auto) 3.3 L [place]fer[place] % (Auto) 1.0 L Eos % (Auto) 0.0 L Baso % (Auto) 0.3 Neut # (Auto) 57459 H Sodium 138 Potassium 4.7 D Chloride 103 Carbon Dioxide 30 BUN 14 Creatinine 0.60 L Estimated GFR > 60.0 BUN/Creatinine Ratio 23.3 H Glucose 147 H Calcium 8.5 Total Bilirubin 0.4 AST 22 ALT 32 Alkaline Phosphatase 97 Total Protein 5.6 L Albumin 2.8 L Globulin 2.8 Albumin/Globulin Ratio 1.0 Discharge Plan Discharge Plan Patient Disposition: SNF Transfer to: [facility] Transportation: Ambulance Discharge comment: 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 Needs flow cytometry or evaluation by Hematology I certify the postop hospital fci care is medically necessary on a continuing basis for any conditions for which he/ she received care during this hospitalization.: Yes The receiving facility has agreed to accept transfer and provide medical treatment.: Yes Discharge Med Rec/Prescriptions Prescriptions: New metoprolol succinate 50 mg Tablet Extended Release 24 Hr 50 mg PO BID Qty: 60 RF: 2 diltiazem HCl 120 mg Capsule,Extended Release 24hr 120 mg PO DAILY Qty: 30 RF: 2 Continue multivitamin Tablet 1 tab PO DAILY RF: 0 acetaminophen 325 mg Tablet 650 mg PO Q4H PRN (Reason: Pain, Mild) RF: 0 loperamide 2 mg Capsule 2 mg PO Q6H PRN (Reason: Diarrhea) RF: 0 hydrocodone-acetaminophen 5-325 mg tablet 0.5 tab PO QAM RF: 0 cyanocobalamin (vitamin B-12) [Vitamin B-12] 1,000 mcg Tablet 1,000 mcg PO DAILY RF: 0 aspirin 81 mg Tablet,Delayed Release (Dr/Ec) 81 mg PO DAILY RF: 0 acetaminophen 500 mg Tablet 500 mg PO QID RF: 0 ascorbic acid (vitamin C) [Vitamin C] 500 mg Tablet 500 mg PO BID RF: 0 tamsulosin 0.4 mg capsule,extended release 24hr 0.4 mg PO DAILY RF: 0 sertraline 25 mg tablet 25 mg PO DAILY RF: 0 Lactobacillus acidophilus [Acidophilus] Capsule 2 cap PO BID RF: 0 ondansetron 4 mg Tablet,Disintegrating 4 mg PO Q4H PRN (Reason: Nausea) RF: 0 sodium chloride [Saline Mist] 0.65 % Aerosol,[place] 1 spray Intranasal QID RF: 0 psyllium seed (sugar) [Reguloid] Powder 1 scoop/day PO DAILY RF: 0 cholecalciferol (vitamin D3) [Vitamin D3] 1,000 unit Tablet 1,000 units PO DAILY RF: 0 mesalamine 1.2 gram tablet,delayed release (DR/EC) 2 tab PO DAILY RF: 0 diclofenac sodium 1 % gel 2 g Topical TID RF: 0 Discontinued metoprolol tartrate 50 mg tablet 50 mg PO BID RF: 0 Follow up/Referrals: Rolanda Aparicio ARNP [Primary Care Provider] - Provider Discharge Instructions Diet: Low-sodium Liquid consistency: Normal/Thin Food texture: Regular Skin/Wound/Dressing Care Report to your healthcare provider any signs of infection, such as:: chills, fever Special Rehabilitation Services Reason for rehabilitation: Recovery r/t decondition Rehab type: Physical therapy, Occupational therapy and Speech therapy Restrictions to mobility: none. Speech for cognitive eval Discharge Data Primary Care Provider: Rolanda Aparicio Attending Provider: aFdy Dutta Admit Date/Time: 04/07/18 15:10 Quality VTE Deep Vein Thrombosis/Pulmonary Embolism Present on Admission: No
--- NOTE | 2018-04-13 14:56 | P.DS_ITS ---
History of Present Illness Date Patient Seen: 04/13/18 Time Patient Seen: 12:57 Chief complaint: FALL Narrative: History of present illness Patient is a 82 years of age male that is and lives with his in assisted living facility. Patient notes he has repeatedly been falling past week. It is unclear as to why this patient has suddenly been falling as often as he does. There was a recent CT of the head on a prior recent ER visit which was negative for any acute CVA. No MRI was done and follow-up. Patient denies any recent fevers and chills. No chest pain or cough or shortness of breath sensation noted. Patient is well oriented to time place person and seems to be able to answer the questions posed regarding his state of health in the past week. Discharge Providers Date of admission: 04/07/18 15:10 Primary care physician: JAVIER Schmitt Consults: 04/06/18 15:02 Consult to Preschool Aide Routine Comment: 04/06/18 15:22 Consult to Occupational Therapy Evaluate & Treat Comment: Physician Instructions: Evaluate and treat 04/06/18 15:25 Consult to Physical Therapy Evaluate & Treat Comment: Physician Instructions: Evaluate and Treat Discharge provider: Fady Dutta MD Discharge Date: 04/13/18 Summary Discharge Diagnosis: Atrial fibrillation with rapid ventricular response: Discussed the case with Dr. Watt rapier insertion loom fixer on 04/12 Recommended the following: Metoprolol succinate 50 mg b.i.d. and diltiazem XL 120 mg daily In a.m. today the heart rate was about 110 with ambulation and much better ventricular response with the AFib Patient will be continued on these 2 medications upon discharge to [facility] today Acute delirium. Resolved Unclear etiology to the delirium. Patient likely with underlying cognitive decline suspect chronic or due to medications and being in the hospital. Frequent falls prior to admission Note patient with tachyarrhythmias when he has ambulated by physical therapy during this hospital course The frequent falls may be related to a undiagnosed rapid tachyarrhythmia Patient also with history of polymyalgia rheumatica and may have difficulty with the hip and shoulder function. Leukocytosis: concern for Chronic lymphocytic leukemia given the chronicity. Consider PCP for referral to the housekeeper upon discharge to consult Orthostatic hypotension: Resolved Patient adequately hydrated during hospital course No further orthostatic hypertension noted Hospital Course: Patient is a very pleasant 82 years of age male was admitted to the hospital because of gait disturbance and frequent falls During hospitalization patient is noted with rapid AFib that worsens with ambulation. Patient was provided various medication such as diltiazem 60 mg t.i.d. initially Which was changed by the next hospitalist to metoprolol. Patient continued to have these rapid ventricular responses with ambulation. Cardiology consult yesterday recommended patient on combination of the Diltiazem XL 120 mg with metoprolol succinate 50 mg p.o. b.i.d. Patient's ventricular response is been much improved with this medication adjustment In view of the patient having PMR I gave the patient 40 mg of Solu-Medrol IV yesterday 1 dose of 40 mg of Solu-Medrol today IV. Will defer to the PCP for further management regarding the PMR in the outpatient setting Physical therapy as noted patient is suitable for discharge. Status at Discharge Cognitive/behavioral status at discharge: Awake and alert in no apparent distress well oriented Respiratory clear to auscultation Cardiovascular with an irregular regular rhythm rate controlled about 100 per minute GI is benign soft nontender Extremities are warm Neurologic no focal neurologic changes Functional status at discharge: independent ambulation Time Spent with Patient Greater than 30 minutes (40 min) Exam Vital Signs (past 8 hours): - 04/13/18 08:30 04/13/18 14:05 Temperature 98.0 F 97.7 F Pulse Rate 74 Respiratory Rate 20 20 Blood Pressure 152/80 H 150/67 H Pulse Oximetry 20 L Oxygen Delivery Method Room Air Oxygen Flow Rate 0 Narrative Exam Narrative: General appearance no apparent distress patient is awake Psychiatric well oriented to time place and person mood is pleasant patient is cooperative Respiratory fairly clear to auscultation no wheezes no crackles Cardiovascular regular rate and rhythm this morning early before onset of the AFib +3 pulses noted to extremities GI fairly benign soft nontender positive bowel sounds no bruits Neurologic no focal neurologic changes cranial nerves 2-12 grossly intact Objective Labs Result Diagrams: 04/13/18 05:32 04/13/18 05:32 Labs: Laboratory Results - last 24 hr 04/13/18 04/13/18 05:32 05:32 WBC 15.4 H RBC 3.50 L Hgb 11.0 L Hct 32.8 L MCV 93.7 MCH 31.4 MCHC 33.5 RDW 14.9 H Plt Count 338 Neut % (Auto) 95.4 H Lymph % (Auto) 3.3 L [place] % (Auto) 1.0 L Eos % (Auto) 0.0 L Baso % (Auto) 0.3 Neut # (Auto) 84738 H Sodium 138 Potassium 4.7 D Chloride 103 Carbon Dioxide 30 BUN 14 Creatinine 0.60 L Estimated GFR > 60.0 BUN/Creatinine Ratio 23.3 H Glucose 147 H Calcium 8.5 Total Bilirubin 0.4 AST 22 ALT 32 Alkaline Phosphatase 97 Total Protein 5.6 L Albumin 2.8 L Globulin 2.8 Albumin/Globulin Ratio 1.0 Discharge Plan Discharge Plan Patient Disposition: SNF Transfer to: [facility] Transportation: Ambulance Discharge comment: 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 Needs flow cytometry or evaluation by Hematology I certify the postop hospital halfway care is medically necessary on a continuing basis for any conditions for which he/ she received care during this hospitalization.: Yes The receiving facility has agreed to accept transfer and provide medical treatment.: Yes Discharge Med Rec/Prescriptions Prescriptions: New metoprolol succinate 50 mg Tablet Extended Release 24 Hr 50 mg PO BID Qty: 60 RF: 2 diltiazem HCl 120 mg Capsule,Extended Release 24hr 120 mg PO DAILY Qty: 30 RF: 2 Continue multivitamin Tablet 1 tab PO DAILY RF: 0 acetaminophen 325 mg Tablet 650 mg PO Q4H PRN (Reason: Pain, Mild) RF: 0 loperamide 2 mg Capsule 2 mg PO Q6H PRN (Reason: Diarrhea) RF: 0 hydrocodone-acetaminophen 5-325 mg tablet 0.5 tab PO QAM RF: 0 cyanocobalamin (vitamin B-12) [Vitamin B-12] 1,000 mcg Tablet 1,000 mcg PO DAILY RF: 0 aspirin 81 mg Tablet,Delayed Release (Dr/Ec) 81 mg PO DAILY RF: 0 acetaminophen 500 mg Tablet 500 mg PO QID RF: 0 ascorbic acid (vitamin C) [Vitamin C] 500 mg Tablet 500 mg PO BID RF: 0 tamsulosin 0.4 mg capsule,extended release 24hr 0.4 mg PO DAILY RF: 0 sertraline 25 mg tablet 25 mg PO DAILY RF: 0 Lactobacillus acidophilus [Acidophilus] Capsule 2 cap PO BID RF: 0 ondansetron 4 mg Tablet,Disintegrating 4 mg PO Q4H PRN (Reason: Nausea) RF: 0 sodium chloride [Saline Mist] 0.65 % Aerosol,[place] 1 spray Intranasal QID RF: 0 psyllium seed (sugar) [Reguloid] Powder 1 scoop/day PO DAILY RF: 0 cholecalciferol (vitamin D3) [Vitamin D3] 1,000 unit Tablet 1,000 units PO DAILY RF: 0 mesalamine 1.2 gram tablet,delayed release (DR/EC) 2 tab PO DAILY RF: 0 diclofenac sodium 1 % gel 2 g Topical TID RF: 0 Discontinued metoprolol tartrate 50 mg tablet 50 mg PO BID RF: 0 Follow up/Referrals: Rolanda Aparicio ARNP [Primary Care Provider] - Provider Discharge Instructions Diet: Low-sodium Liquid consistency: Normal/Thin Food texture: Regular Skin/Wound/Dressing Care Report to your healthcare provider any signs of infection, such as:: chills, fever Special Rehabilitation Services Reason for rehabilitation: Recovery r/t decondition Rehab type: Physical therapy, Occupational therapy and Speech therapy Restrictions to mobility: none. Speech for cognitive eval Discharge Data Primary Care Provider: Rolanda Aparicio Attending Provider: Fady Dutta Admit Date/Time: 04/07/18 15:10 Quality VTE Deep Vein Thrombosis/Pulmonary Embolism Present on Admission: No
--- NOTE | 2018-04-13 15:29 | CM.DPC ---
DC Note: Pt found to be medically stable for DC to [facility] today. Rosa w/ [facility] aware and agreeable and so is pt. Pt eager to leave hospital. Rosa arranged cabulance p/u for 1430, this [employer]OW [employer]ATCH [employer] CUTTER faxed completed PASSR, signed med list, and Rx to [facility] w/e number. P: DC to [facility] today via cabulance. Nephew updated earlier today. JW
--- NOTE | 2018-04-13 15:59 | PC.NURSE ---
1430 Report called to Josi PETTIT at [facility]. Patient's iv and telemetry dc'd intact. Patient is packed and waiting for picker / packer by [facility]. Paperwork packet ready for picker / packer. Patient's nephew Isaac aware of plan for transfer. Patient called his to notify her of picker / packer this afternoon. Call light within reach, patient without complaints, denies pain, states he has no further questions or concerns at this time. Belongings packed (Isaac took wheelchair earlier).
--- NOTE | 2018-04-13 16:01 | PC.NURSE ---
1500 Patient picked up by [facility] via wheelchair with paperwork packet and home belongings.
== END 2018-04-13 15:15 | DRG 308 ==
LOC: ED 13:33 → AC 13:36
PROVIDERS: Internal Medicine; Admitting Provider Internal Medicine; Emergency Provider Emergency Medicine; PCP Nurse Practitioner Family; Visit Provider Internal Medicine
DX: I48.91 Unspecified atrial fibrillation (principal); I50.31 Acute diastolic (congestive) heart failure; F05 Delirium due to known physiological condition; D72.829 Elevated white blood cell count, unspecified; Z91.81 History of falling; R51 Headache; I11.0 Hypertensive heart disease with heart failure; I25.10 Atherosclerotic heart disease of native coronary artery without angina pectoris; E78.5 Hyperlipidemia, unspecified; M35.3 Polymyalgia rheumatica; Z87.891 Personal history of nicotine dependence; R26.9 Unspecified abnormalities of gait and mobility; I95.1 Orthostatic hypotension; E03.9 Hypothyroidism, unspecified
CPT/HCPCS: 36415; 36591; 70548; 70551; 71045; 71046; 73030; 80048; 80053; 81001; 81003; 82247; 83605; 83880; 84145; 84439; 84443; 84484; 85025; 85610; 85651; 85730; 86140; 87040; 87086; 93005; 93010; 93306; 93880; 96360; 96361; 97116; 97163; 97165; 97530; 97535; 99284; 99291; G0378; A9579; J0610; J1160; J1650; J1940; J2920

== ENCOUNTER → 2018-05-10 10:36 | Outpatient (CLI) | payer MEDICARE, SELFPAY ==
[2018-04-06 14:37] VITALS: BMI 24.8
--- NOTE | 2018-05-10 | DI.CT.S_ITS ---
PROCEDURE: CT ABDOMEN PELVIS WO/W CON INDICATIONS: HEMATURIA TECHNIQUE: Optional 5 mm thick noncontrast images acquired from the diaphragm to the symphysis pubis. After the administration of intravenous contrast, 5 mm thick images acquired from the diaphragm to the symphysis pubis after a 10-minute delay. 2 mm thick coronal and sagittal reformats were then performed of the kidneys and ureters. For radiation dose reduction, the following was used: automated exposure control, adjustment of mA and/or kV according to patient size. COMPARISON: [facility], CT, ABDOMEN/PELVIS WITH CONTRAST, 06/22/2013, 16:28. FINDINGS: Image quality: Excellent. Lung bases: Lung bases are clear. Heart size is normal. Urinary system: Both kidneys are normal in size, without hydronephrosis on pre-contrast images. The left kidney demonstrates three pelvic calcifications, the largest measuring 12 mm, Hounsfield units 975. The right kidney demonstrates two punctate inferior pole and two punctate superior pole renal calcifications. 6 mm linear midpole right renal calcification is present. No perinephric fat stranding. There is normal bilateral renal enhancement. Renal calyces appear normal in morphology when filled with contrast. Opacified portions of both ureters demonstrate normal caliber. No calcified bladder stones. Air is present in the nondependent bladder. It is noted that portions of the bladder are suboptimally evaluated secondary to metallic streak artifact from right hip arthroplasty. Lobulations are present within the left lateral posterior bladder suggestive of diverticula. Precontrast images demonstrate the bladder to be prominently distended with the wall diffusely thin.. Postcontrast images demonstrate the bladder to be significantly underdistended with diffusely thickened wall. Prostate gland is enlarged. Other solid organs: Liver is normal in size and enhancement. Gallbladder is unremarkable. Biliary system is non dilated. Pancreas demonstrates fatty atrophy. Spleen is normal in size and enhancement. No adrenal nodules. Peritoneum and bowel: Bowel loops demonstrate normal wall thickness and caliber. No free fluid or air. Mild colonic diverticula are present without associated inflammatory change. Nodes and vessels: No retroperitoneal or mesenteric adenopathy by size criteria. Aorta and inferior vena cava are normal in size. Prominent atherosclerotic and iliac vasculature calcifications are present. Abdominal wall: Fat containing ventral hernia is noted. Pelvis: No pathologic free pelvic fluid. Bilateral inguinal hernias are present. As identified on prior exam, chronic postsurgical changes are present. There is area of soft tissue density in the presacral region which is unchanged. Dystrophic right hip musculature calcifications are present without change. Bones: No suspicious bony lesions. There is a T8 compression deformity, new compared to 06/22/13. T11 anterior wedge deformity is also present, new compared to 2013. Right hip arthroplasty is present. IMPRESSION: 1. Bilateral, renal calculi with the largest identified in the left renal pelvis. There is slight prominence of the left renal pelvis surrounding the renal calcification. However, otherwise no obstruction is identified. 2. Air is present within the nondependent bladder. This could be related to recent catheterization. Other etiologies can include infection, inflammation or less likely fistula. However, clinical correlation is recommended. 3. Thoracic compression deformities of indeterminate age. Dictated by: Noemi Diaz M.D. on 05/10/2018 at 13:11 Approved by: Noemi Diaz M.D. on 05/10/2018 at 13:47
== END ==
PROVIDERS: PCP Nurse Practitioner Family; Visit Provider Nurse Practitioner Family
DX: R31.9 Hematuria, unspecified (principal); N40.0 Benign prostatic hyperplasia without lower urinary tract symptoms; Z96.641 Presence of right artificial hip joint
CPT/HCPCS: 74178; Q9967

== ENCOUNTER → 2018-05-31 08:15 | Outpatient (REF) | payer MEDICARE, SELFPAY ==
[2018-04-06 14:37] VITALS: BMI 24.8
[2018-05-31 09:26] LABS: Add Manual Diff / Slide Review NO; Basophils Percent Auto 0.5 % (0-2); Eosinophils Percent Auto 2.9 % (2-4); Hematocrit 35.9 % (41-53); Hemoglobin 11.9 g/dL (13.5-17.5); Lymphocytes Percent Auto 8.1 % (25-40); Mean Corpuscular HGB Conc 33.2 % (30-36); Mean Corpuscular Hemoglobin 31.4 PG (26-34); Mean Corpuscular Volume 94.6 fL (80-100); Monocytes Percent Auto 9.7 % (3-14); Neutrophils Absolute Auto 13000 /uL (3000-5900); Neutrophils Percent Auto 78.8 % (50-75); Platelet Count 203 X10^3/uL (150-400); Red Cell Distribution Width 15.4 % (11.6-14.8); White Blood Cell Count 16.5 X10^3/uL (4.5-11.0)
[2018-05-31 09:52] LABS: Alanine Aminotransferase 38 IU/L (21-72); Albumin Globulin Ratio 1.2 (1.0-2.8); Alkaline Phosphatase 86 U/L (38-126); Aspartate Aminotransferase 12 IU/L (17-59); BUN Creatinine Ratio 31.4 (6-22); Bilirubin Total 0.6 mg/dL (0.2-1.3); Blood Urea Nitrogen 22 mg/dL (9-20); Calcium 8.3 mg/dL (8.4-10.2); Carbon Dioxide 27 mmol/L (22-32); Chloride 107 mmol/L (98-107); Estimated Glomerular Filt Rate > 60.0 mL/min (>60); Globulin 2.6 g/dL (1.7-4.1); Glucose 80 mg/dL (80-110); HEMOLYSIS < 15 (0-50); Potassium 3.6 mmol/L (3.4-5.1); Sodium 144 mmol/L (137-145); Total Protein 5.6 g/dL (6.3-8.2)
[2018-05-31 10:12] LABS: Thyroid Stimulating Hormone 3.18 uIU/mL (0.47-4.68)
== END ==
LOC: LAB 08:15
PROVIDERS: PCP Nurse Practitioner Family; Visit Provider Nurse Practitioner Family
DX: K52.9 Noninfective gastroenteritis and colitis, unspecified (principal)
CPT/HCPCS: 36415; 80053; 84443; 85025

== ENCOUNTER 2018-06-20 03:33 | Inpatient (IN) | payer MEDICARE, SELFPAY ==
[2018-04-06 14:37] VITALS: BMI 24.8
[2018-06-20] VITALS (11 sets, daily range): BP systolic 105–144; BP diastolic 46–84; PULSE 76–108; RESP 16–24; TEMP 35.8–36.7; O2SAT 92–99; BMI 23.1
--- NOTE | 2018-06-20 03:37 | DI.CT.S_ITS ---
PROCEDURE: CT HEAD/BRAIN WO CON INDICATIONS: stroke TECHNIQUE: Noncontrast 4.5 mm thick angled axial sections acquired from the foramen magnum to the vertex, with coronal and sagittal reformats. For radiation dose reduction, the following was used: automated exposure control, adjustment of mA and/or kV according to patient size. COMPARISON: [facility], CT, CT HEAD/BRAIN WO CON, 04/01/2018, 16:07. FINDINGS: Image quality: Excellent. CSF spaces: Basal cisterns are patent. No extra-axial fluid collections. The ventricles are symmetric in size and shape. Brain: No intracranial bleeds or masses. Bilateral subcentimeter lacunar infarcts, with grossly unchanged appearance There is cerebral volume loss for age, with resultant ventricular and sulcal prominence. There are periventricular and deep white matter chronic small vessel ischemic changes. There is intracranial internal carotid artery atherosclerosis. Skull and face: Calvarium and visualized facial bones appear intact, without suspicious lesions. Sinuses: Visualized sinuses and mastoids are clear. IMPRESSION: No acute intracranial process. Chronic white matter changes as above. Dictated by: Jean-Pierre Rodriguez M.D. on 06/20/2018 at 7:05 Approved by: Jean-Pierre Rodriguez M.D. on 06/20/2018 at 7:06
--- NOTE | 2018-06-20 03:39 | ED_ITS ---
HPI - Neuro Symptoms/Deficit General Chief Complaint: Neuro Symptoms/Deficit Stated Complaint: Possible Stroke Time Seen by Provider: 06/20/18 03:37 Source: patient and EMS Mode of arrival: EMS Limitations: language barrier (Patient is slurring his words) History of Present Illness HPI Narrative: Patient is a DNR DNI with limited medical interventions comfort measures only brought over from the [facility] for concerns of a CVA. His last known normal at midnight. He was reported by EMS that he hit his call button and when nursing staff came in at approximately 0300 hr in the morning they noticed that he was unable to raise both arms unable to squeeze bilateral hands equally the left side being weak unable to retain balance as he was listing to the right side. Unable to stand secondary to weakness, unable to focus his eyes, unable to lift his head, left-sided smile right-sided drooping who is reported the patient has had a stroke in the past. Unknown if he had any residual deficits from this. There were no reports of falls. Related Data Home Medications Medication Instructions Recorded Confirmed Lactobacillus acidophilus 2 cap PO BID 12/14/17 05/15/18 [Acidophilus] acetaminophen 500 mg PO QID 12/14/17 05/15/18 acetaminophen 650 mg PO Q4H PRN 12/14/17 05/15/18 ascorbic acid (vitamin C) [Vitamin 500 mg PO BID 12/14/17 05/15/18 C] aspirin 81 mg PO DAILY 12/14/17 05/15/18 cholecalciferol (vitamin D3) 1,000 units PO DAILY 12/14/17 05/15/18 [Vitamin D3] cyanocobalamin (vitamin B-12) 1,000 mcg PO DAILY 12/14/17 05/15/18 [Vitamin B-12] diclofenac sodium 2 g TOPICAL TID 12/14/17 05/15/18 hydrocodone-acetaminophen 0.5 tab PO QAM 12/14/17 05/15/18 loperamide 2 mg PO Q6H PRN 12/14/17 05/15/18 mesalamine 2 tab PO DAILY 12/14/17 05/15/18 multivitamin 1 tab PO DAILY 12/14/17 05/15/18 ondansetron 4 mg PO Q4H PRN 12/14/17 05/15/18 psyllium seed (sugar) [Reguloid] 1 scoop/day PO DAILY 12/14/17 05/15/18 sertraline 25 mg PO DAILY 12/14/17 05/15/18 sodium chloride [Saline Mist] 1 spray INTRANASAL QID 12/14/17 05/15/18 tamsulosin 0.4 mg PO DAILY 12/14/17 05/15/18 Previous Rx's Medication Instructions Recorded diltiazem HCl 120 mg PO DAILY #30 cap 04/13/18 metoprolol succinate 50 mg PO BID #60 tab 04/13/18 Allergies Allergy/AdvReac Type Severity Reaction Status Date / Time No Known Drug Allergies Allergy Verified 04/01/18 15:53 Review of Systems Review of Systems Patient was able to answer questions Constitutional Reports frequent falls (Per his medical history there is no reported falls this evening), Denies headache(s) and Reports weakness Eyes Denies blurry vision ENT Ears, Nose, Mouth, and Throat: Denies headache(s) and Reports disequilibrium Cardiovascular Denies chest pain, Denies palpitations and Denies dyspnea Respiratory Denies dyspnea Gastrointestinal Gastrointestinal: Denies abdominal pain Musculoskeletal Denies myalgias and Denies arthralgias Integumentary/Breasts Denies rash Neurologic Reports frequent falls (Per his medical history there is no reported falls this evening), Denies headache(s), Reports sensory deficit, Reports disequilibrium and Reports weakness Endocrine Denies palpitations Hematologic/Lymphatic Comments: Not on anticoagulation Allergic/Immunologic Denies urticaria [facility] Social History household members: spouse housing: assisted living facility Smoking Status: Former smoker alcohol intake: former Exam Initial Vital Signs Initial Vital Signs: Vital Signs Temperature 97.3 F L 06/20/18 04:24 Pulse Rate 76 06/20/18 04:24 Respiratory Rate 19 06/20/18 04:24 Blood Pressure 135/82 06/20/18 04:24 Pulse Oximetry 95 06/20/18 04:24 Const General: cooperative and No acute distress Orientation: alert, awake, oriented to person, oriented to place and not confused HENMT Head: normal to inspection and normocephalic Face and sinus: other (Decreased movement of left-sided face compared with right which was different than initially reported by nursing staff at his assisted living) Mouth: oral mucosae normal Eyes Visual Hcino: normal visual chino by confrontation (Patient reported being able to see both peripherally to the left and right) Pupils: PERRL and pupil size bilaterally 2 EOM: EOM intact bilaterally (Seem to have some difficulty looking to the left but was able to look) Resp Effort & Inspection: normal respiratory effort Auscultation: clear to auscultation bilaterally Cardio Rate: regular rate Rhythm: abnormal rhythm and other (Irregular) Pulses: radial pulses present GI Inspection: non-distended Palpation: soft and No tender Skin Rashes: no rashes Neuro General: alert and awake Cranial Nerves: tongue midline Cognition: normal cognition Speech: other (Slurred speech) Sensory Exam: other (Decreased sensation left upper and left lower extremity to light touch) Coordination: [id number] test abnormal (Unable to perform finger to nose bilateral) and [id number] test normal (Unable to perform [id number] test bilateral) Extrem General: normal to inspection and capillary refill normal Psych Appearance: grossly normal and well kempt Scores NIH Stroke Scale Level of Conciousness: Alert, keenly responsive Ask month/age: Answers both questions correctly. Open/close eyes, close hand: Performs both tasks correctly Best gaze horizontal: Partial gaze palsy, can be overcome by finger tracking, head turning Visual chino: No visual loss Facial palsy: Minor paralysis, flattened nasolabial fold, asymmetry on smiling Left arm drift: Drifts down, not to bed Right arm drift: No drift for full 10 sec Left leg drift: Drifts down, not to bed Right leg drift: No drift for full 10 sec Limb ataxia: Present in two limbs Sensory on face/arms/legs: Mild to moderate sensory loss, can tell touch Best language: No aphasia, normal Dysarthria: Mild to mod,some slurring Extinction or inattention: No abnormality Total NIH Stroke scale score: 8 Course Orders Ordered: ED Orders 06/20/18 03:30 Basic Metabolic Panel Stat Complete Blood Count AUTO DIFF Stat Partial Thromboplastin Time Stat Prothrombin Time INR Stat 06/20/18 03:37 CT head/brain wo con Stat 06/20/18 04:14 EKG-12 Lead Stat 06/20/18 05:05 Consult to Physician Routine Sodium Chloride (Normal Saline 0.9%) 1,000 mls @ 125 mls/hr IV CONT NINI Morphine Sulfate (Morphine) 2 mg IV Q4HR PRN PRN Reason: Pain, Mild (1-3) Ondansetron HCl (Zofran) 4 mg IV Q4HR PRN PRN Reason: Nausea And Vomiting Discontinued Medications Ondansetron HCl (Zofran) 4 mg IV NOW ONE Stop: 06/20/18 04:13 Last Admin: 06/20/18 04:13 Dose: 4 mg Vital Signs - 8 hr 06/20/18 04:24 Temperature 97.3 F L Pulse Rate 76 Respiratory Rate 19 Blood Pressure 135/82 Pulse Oximetry 95 MDM - Neuro Symptoms/Deficit Medical Records Attestation: I reviewed the patient's medical records. Lab Data Attestation: I reviewed the patient's lab results. Result diagrams: 06/20/18 03:30 06/20/18 03:30 Lab Results 06/20/18 06/20/18 06/20/18 Range/Units 03:30 03:30 03:30 WBC 19.7 H (4.5-11.0) X10^3/uL RBC 4.54 (4.5-5.9) X10^6/uL Hgb 13.6 (13.5-17.5) g/dL Hct 42.0 (41-53) % MCV 92.6 (80-100) fL MCH 29.9 (26-34) PG MCHC 32.3 (30-36) % RDW 15.5 H (11.6-14.8) % Plt Count 493 H (150-400) X10^3/uL Neut % (Auto) 70.8 (50-75) % Lymph % (Auto) 15.0 L (25-40) % [place] % (Auto) 12.6 (3-14) % Eos % (Auto) 1.4 L (2-4) % Baso % (Auto) 0.2 (0-2) % Neut # (Auto) 14964 H (7030-7687) /uL PT 13.7 H (10.1-12.7) SECONDS INR 1.2 (0.9-1.3) APTT 29 (26.4-36.2) SECONDS Sodium 142 (137-145) mmol/L Potassium 4.2 (3.4-5.1) mmol/L Chloride 105 (98-107) mmol/L Carbon Dioxide 24 (22-32) mmol/L BUN 19 (9-20) mg/dL Creatinine 0.90 (0.66-1.25) mg/dL Estimated GFR > 60.0 (>60) mL/min BUN/Creatinine Ratio 21.1 (6-22) Glucose 151 H (80-110) mg/dL Calcium 9.2 (8.4-10.2) mg/dL Imaging Data CT scan - head: Radiologist's impression: Age related finding some chronic right basal cannula lacunar infarcts were stable. No acute intracranial abnormality ECG Data Attestation: I personally reviewed and interpreted this ECG as follows: Prior ECG tracings: available for review Interpretation: Sinus rhythm Ventricular rate 87 Frequent PACs Regularly irregular Normal QRS Normal QTC Normal axis Comparison EKG dated 10/13/2014 Sinus rhythm with 1st degree AV block Rate is 69 MDM Narrative Medical decision making narrative: Patient comes with paperwork stating that he is a DNR DNI with comfort measures only limited medical interventions. His head CT shows no signs of acute hemorrhage. Does have an NIH stroke scale of 8 and with his symptoms this is highly suspicious for an acute CVA. Patient does have an elevated white blood cell count however review of prior admissions to the hospital appears that he is chronically elevated. There was some concern for CLL. I do not have any followup notes with regard to this. Patient is not in atrial fibrillation today however prior admission notes do state that he has a history of atrial fibrillation. I have no documentation of anticoagulation most likely secondary to frequent falls. During his stay here in the emergency department it did appear that some of his symptoms may be improving somewhat. His niece is here at bedside. Had a long discussion with the patient and the family regarding options to include tPA which I feel in his situation is a poor decision given the length of time since the potential onset of his symptoms, his DNR status and the high likelihood of causing a catastrophic head bleed. We discussed that if he was open to interventions that a CTA of the head neck with the anticipation that if there was abnormalities found that he would be transferred to [facility] for catheter directed thrombolysis. Patient did acknowledge that he did not want to be transferred to another facility. After this discussion will admit the patient here to this hospital. I discussed the case with Dr. Vinson who will accept the patient for continued evaluation and treatment. Critical Care Time Critical Care Time: Yes Total Critical Care Time: 45 Attestation: The high probability of a clinically significant, sudden or life threatening deterioration of the neurologic system(s) required my full and direct attention , intervention and personal management. The aggregate critical care time was 45 minutes. This time is in addition to time spent performing reported procedures but includes the following: [] Data Review and interpretation [] Patient assessment and monitoring of vital signs [] Documentation [] Medication orders and management Continuation of care Discharge Plan Departure Patient Disposition: Admitted As Inpatient Clinical Impression: CVA (cerebral vascular accident), Leukocytosis, Atrial fibrillation
[2018-06-20 03:52] LABS: Add Manual Diff / Slide Review NO; Basophils Percent Auto 0.2 % (0-2); Eosinophils Percent Auto 1.4 % (2-4); Hemoglobin 13.6 g/dL (13.5-17.5); Mean Corpuscular HGB Conc 32.3 % (30-36); Mean Corpuscular Hemoglobin 29.9 PG (26-34); Mean Corpuscular Volume 92.6 fL (80-100); Monocytes Percent Auto 12.6 % (3-14); Neutrophils Absolute Auto 13900 /uL (1500-7000); Neutrophils Percent Auto 70.8 % (50-75); Platelet Count 493 X10^3/uL (150-400); Red Blood Cell Count 4.54 X10^6/uL (4.5-5.9); Red Cell Distribution Width 15.5 % (11.6-14.8); White Blood Cell Count 19.7 X10^3/uL (4.5-11.0)
[2018-06-20 03:58] LABS: INR 1.2 (0.9-1.3); Prothrombin Time 13.7 SECONDS (10.1-12.7)
[2018-06-20 04:00] LABS: PTT Partial Thromboplastin Tim 29 SECONDS (26.4-36.2)
[2018-06-20] MEDS: ONDANSETRON 4 MG/2 ML INJ IV (04:13)
[2018-06-20 04:19] LABS: Blood Urea Nitrogen 19 mg/dL (9-20); Carbon Dioxide 24 mmol/L (22-32); Chloride 105 mmol/L (98-107); Potassium 4.2 mmol/L (3.4-5.1); Sodium 142 mmol/L (137-145)
[2018-06-20 04:20] LABS: BUN Creatinine Ratio 21.1 (6-22); Calcium 9.2 mg/dL (8.4-10.2); Estimated Glomerular Filt Rate > 60.0 mL/min (>60); Glucose 151 mg/dL (80-110); HEMOLYSIS < 15 (0-50)
--- NOTE | 2018-06-20 06:30 | PC.NURSE ---
Admission Note: Received pt from ED, transferred pt to bed using slider board as pt was unable to assist. Pt incontinent of bowel and bladder upon admission to room. Pt arousable to voice and touch and answered his name but unable to remain awake to answer admission questions. JENIFERCarmen Josselin and Isaac Mclaughlin (Niece and [id number]) were in room and answered admission questions. Pt unable to guest request runner with left hand with positive drift, able to lift left leg but not against force, right sided facial droop noted. Unable to orient pt to room at this time, bed alarm is on, pt in yellow gown and socks due to CVA status and hx of frequent falls. Pt uses a power chair at [facility] but is currently a max assist. Pt has dressing to left baptist for suspected abrasion that occurred during fall in April, also has healing bruise to right chest also from fall. Pt has hx of Afib with RVR but tele not ordered at this time per admitting doctor.
[2018-06-20] MEDS: SODIUM CHLORIDE 0.9% 1,000 ML 125 ML IV (06:45)
--- NOTE | 2018-06-20 12:37 | PM.HP.1 ---
History of Present Illness Date Patient Seen: 06/20/18 Chief complaint: Possible Stroke Narrative: Dameon Burt this is an 82-year-old male with a past medical history significant for atrial fibrillation with history of previous CVA who presented to [facility] from [facility] for symptoms concerning of new CVA. His last known normal was at midnight. It was reported that he hit his call light at approximately 03:00 and was unable to raise both arms, squeeze hands bilaterally, and balance/stand which is abnormal compared to baseline. Upon my examination, the patient is more alert and able to answer yes and no questions. He denies headache, visual changes such as blurry or double vision, however, he has a left-sided visual field deficit, chest pain, shortness of breath, abdominal pain, vomiting, dysuria, constipation or diarrhea. He does endorse chronic right shoulder pain, chronic subjective shortness of breath, and mild nausea. He is able to ambulate with a forward wheeled walker at baseline. Patient History Medical History CHF (congestive heart failure) (Acute) Cataract (Acute) Colon cancer (Acute) Coronary artery disease (Acute) Hyperlipidemia (Acute) Hypertension (Acute) Polymyalgia rheumatica (Acute) Surgical History History of tonsillectomy (Acute) H/O total hip arthroplasty (Acute) History of colon resection (Acute) Family & Social History Social History: household members spouse Prior Living Arrangements Skilled Nurse Facility The patient is retired and formerly worked at [employer]. He is a former [employer] . He has been for 59 years. He has no children. Safety & Behavioral: Feels Safe in Current Yes Environment Been Physically Hurt or No Threatened By a Person Suicidal Ideation Description None Tobacco & Substance use: Smoking Status Former smoker alcohol intake former alcohol intake frequency 0-2 drinks per day Substance Use Type does not use Meds Home Medications Medication Instructions Recorded Confirmed Type Lactobacillus acidophilus 2 cap PO BID 12/14/17 06/20/18 History [Acidophilus] acetaminophen 500 mg PO QID PRN 12/14/17 06/20/18 History acetaminophen 650 mg PO Q4H PRN 12/14/17 06/20/18 History ascorbic acid (vitamin C) [Vitamin 500 mg PO BID 12/14/17 06/20/18 History C] cyanocobalamin (vitamin B-12) 1,000 mcg PO DAILY 12/14/17 06/20/18 History [Vitamin B-12] diclofenac sodium 2 g TOPICAL TID 12/14/17 06/20/18 History loperamide 2 mg PO Q6H PRN 12/14/17 06/20/18 History mesalamine 2 tab PO DAILY 12/14/17 06/20/18 History multivitamin 1 tab PO DAILY 12/14/17 06/20/18 History ondansetron 4 mg PO Q4H PRN 12/14/17 06/20/18 History psyllium seed (sugar) [Reguloid] 1 scoop/day PO DAILY 12/14/17 05/15/18 History sodium chloride [Saline Mist] 1 spray INTRANASAL QID 12/14/17 06/20/18 History diltiazem HCl [Cartia XT] 120 mg PO DAILY 06/20/18 06/20/18 History metoprolol succinate 1 tab PO DAILY 06/20/18 06/20/18 History pantoprazole 20 mg PO DAILY 06/20/18 06/20/18 History Allergies Allergy/AdvReac Type Severity Reaction Status Date / Time No Known Drug Allergies Allergy Verified 04/01/18 15:53 Review of Systems Review of Systems A 12 system comprehensive review of systems was conducted with the patient and found to be negative except as above in the History of Present Illness. Exam Vital Signs (past 8 hours): - 06/20/18 05:29 06/20/18 05:59 06/20/18 08:00 Temperature 98.0 F 96.4 F L Pulse Rate 86 108 H 84 Respiratory Rate 23 16 17 Blood Pressure 105/66 128/60 Blood Pressure [Right Arm] 124/78 Pulse Oximetry 95 93 92 06/20/18 11:00 Temperature 97.5 F L Pulse Rate 80 Respiratory Rate 18 Blood Pressure 132/46 L Blood Pressure [Right Arm] Pulse Oximetry 97 Oxygen Delivery Method Room Air Oxygen Flow Rate 0 Narrative Exam Narrative: General: Elderly gentleman lying in bed comfortably and in non acute distress, well-developed, well-nourished, appropriately interactive HEENT: Normocephalic, atraumatic. External ears without defect. Pupils equal, round, and reactive to light. Anicteric sclerae, moist conjunctivae, and no lid lag. Oropharynx free of erythema and cobble stoning with dry mucosa. Neck: Supple with full range of motion. No jugular venous distension. No bruits. No lymphadenopathy or thyromegaly. Cardiovascular: Irregularly irregular without murmurs, rubs, or gallops appreciated. Pulmonary: Clear to auscultation bilaterally without crackles, wheezes, or rhonchi. Normal respiratory effort with no use of accessory muscles. Abdomen: Bowel tones present. Soft, non-tender, non-distended. No hepatosplenomegaly or masses appreciated. Extremities: No clubbing, cyanosis, or edema. Skin: Normal temperature, poor turgor, and texture; no rash, ulcers, or subcutaneous nodules appreciated. Neurological: Awake and alert, oriented to person and place, normal cognition, slight slurred speech and mild expressive aphasia, decreased sensation to left upper and lower extremities, abnormal cerebellar tests. Known gait impairment and uses forward wheeled walker. Psychiatric: Normal mood and affect. Alert and oriented to person, place, and time. Objective Labs Result Diagrams: 06/20/18 03:30 06/20/18 03:30 Labs: Laboratory Results - last 24 hr 06/20/18 06/20/18 06/20/18 03:30 03:30 03:30 WBC 19.7 H RBC 4.54 Hgb 13.6 Hct 42.0 MCV 92.6 MCH 29.9 MCHC 32.3 RDW 15.5 H Plt Count 493 H Neut % (Auto) 70.8 Lymph % (Auto) 15.0 L [place] % (Auto) 12.6 Eos % (Auto) 1.4 L Baso % (Auto) 0.2 Neut # (Auto) 02452 H PT 13.7 H INR 1.2 APTT 29 Sodium 142 Potassium 4.2 Chloride 105 Carbon Dioxide 24 BUN 19 Creatinine 0.90 Estimated GFR > 60.0 BUN/Creatinine Ratio 21.1 Glucose 151 H Calcium 9.2 Assessment & Plan Plan: Assessment/Plan Narrative: 1. Possible CVA versus TIA, present on admission. Active. -Ordered physical therapy, speech therapy, and occupational therapy evaluations and treatment, pending. -Orthostatic blood pressure and pulse rate q.4 hours while awake -Continue aspirin 81 mg daily. Patient is at high risk of falls, therefore, blood thinners are contraindicated. -The patient is DNR/DNI and does not wish to have further imaging performed as it would not change the outcome. The family would like the patient to be evaluated for more aggressive stroke rehabilitation versus return to his assisted living facility. 2. Acute on chronic leukocytosis, present on admission. Active. -Possibly scheduling representative of UTI. No other obvious signs of infection. Not likely related to steroids as patient has been off for several weeks. -Ordered urinalysis with culture if indicated, pending. -Continue IV fluids with normal saline at 100 mL/hr. 3. Atrial fibrillation, present on admission. Stable. -Held cardiac meds and will continue once adequately hydrated and as tolerated. 4. Hyperlipidemia, present on admission. Presume stable. -Ordered lipid panel, pending. -Currently not on statin and will discuss therapy if appropriate with family. 5. Polymyalgia Rheumatica -Continue analgesics prn. 6. History of Crohn's disease, present on admission. Presume stable. -Continue home medication mesalamine. Of note, the patient was previously on prednisone which was discontinued earlier this month. DVT prophylaxis: SubQ Heparin Patient is admitted under observation status with expected length of stay less than 2 midnights due to severity of presenting symptoms, risk of adverse event, and complexity of treatment plan. Quality VTE Deep Vein Thrombosis/Pulmonary Embolism Present on Admission: No
[2018-06-20] MEDS: SODIUM CHLORIDE 0.9% 1,000 ML 80 ML IV (14:12)
[2018-06-20] MEDS: HEPARIN 5,000 UNIT/ML VIAL 5000 UNIT SUBCUT (14:14)
--- NOTE | 2018-06-20 14:43 | PT.IIE ---
Surgical History (Last Updated 06/20/18 @ 13:25 by Aleah Fall DO) History of tonsillectomy (Acute) H/O total hip arthroplasty (Acute) History of colon resection (Acute) Medical History (Last Reviewed 05/15/18 @ 18:20 by Emil Pagan MD) CHF (congestive heart failure) (Acute) Cataract (Acute) Colon cancer (Acute) Coronary artery disease (Acute) Hyperlipidemia (Acute) Hypertension (Acute) Polymyalgia rheumatica (Acute) Physical Therapy Inpatient Evaluation/Re-Eval M1 PT/OT-IP Prior Functional Status Start: 06/20/18 15:19 Freq: NEEDED Status: Active Protocol: Document 06/20/18 14:43 AB (Rec: 06/20/18 15:35 AB [id number]) Medical Review Prior Functional Status Medical History Reviewed Yes Communication able to answer questions appropriately Mobility and Gait per pt: he needs assistance with bed mobility, transfers and ambuation using FWW. calls for assistance and stated that the aides assists him but he usually stays in bed and get up only when he needs to use the toilet and for meals. has a manual w/c and stated that the aides wheels him to the dining room for lunch and dinner. Activities of Daily Living and IADL's needs assistance with all ADLs Social History Household Members spouse Living Arrangements Skilled Nurse Facility Number of Floors (Floors) One Floor Number of Stairs To Enter/Railing? Lives at [facility] Home Environment Standard Height Toilet Walk in Shower Home Equipment Front Wheel Walker Manual Wheelchair Shower Seat with Backrest Hand Held Shower Grab Bars Near Toilet Grab Bars In Shower Employment Status Retired Additional Social History Comment stated that he has an adjustable bed. M2 PT-IP Current Condition Start: 06/20/18 15:19 Freq: NEEDED Status: Active Protocol: Document 06/20/18 14:43 AB (Rec: 06/20/18 15:35 AB [id number]) Physical Therapy Current Condition Current Condition Evaluation Date 06/20/18 Treatment Diagnosis possible stroke; difficulty in walking Onset Date 06/20/18 Precautions Other Precautions fall risk; bed/chair alarm M3 PT-IP Subjective Start: 06/20/18 15:19 Freq: NEEDED Status: Active Protocol: Document 06/20/18 14:43 AB (Rec: 06/20/18 15:35 AB [id number]) Subjective Physical Therapy Visit Type Type Initial Evaluation Visit Start Time 14:43 Visit Stop Time 15:12 Total Visit Minutes 33 Number of SCANNER SUPERVISOR Visits 0 Physical Therapy Visit Comments Patient Comments pt agreeable to get out of bed Therapy Pain Assessment Pain Present Pain Present Denied Pain M4 PT-IP Mobility and Gait Start: 06/20/18 15:19 Freq: NEEDED Status: Active Protocol: Document 06/20/18 14:43 AB (Rec: 06/20/18 15:35 AB [id number]) PT-Bed Mobility Assessment Supine to Sit Supine to Sit Maximum Assistance Head of Bed Elevated Scooting Scooting to Edge of Bed Maximum Assistance PT-Transfer Assessment Sit to and From Stand Sit to and from Stand Maximum Assistance 2 Person Assistance Use of Upper Extremities Equipment Transfer Assistive Device Gait Belt Front Wheeled Walker Orthotic/Prosthetic Devices or Brace: No Transfers Transfer Destination Chair Transfer Technique Squat Pivot Transfer Ability Level of Assist 1 Person Assistance 2 Person Assistance Comments Mobility Comments BP monitored: BP supine: 119/ 68 [place]: 98 sitting on EOB 144/ 84 AZ 80 standin/58 [place] 76 sitting on chair: 125/70 pt with increase lateral leaning to the L . performed sit to stand requiring max A x 2 and max cues and required max A x 2 to maintain standing balance/tolerance using FWW for support. attempted step pivot transfer but pt unable to move LLE despite max A provided and assist with weight shifting. assisted pt to sit down total A and max cues. completed squat pivot transfer max A x 2 with PT assisting in front of pt. positioned pt on chair. call light and table placed within reach. left pt with NAC in room. Gait Assessment Comments Gait Comments unable at this time PT-Balance Assessment Sitting Balance and Reactions Static Sitting Balance Ability Poor Dynamic Sitting Balance Ability Poor Standing Balance and Reactions Static Standing Balance Ability Poor Dynamic Standing Balance Ability Poor Device Used FWW Comments Other Balance Tests/Deviations/Treatment increase lateral leaning to : the L M5 PT-IP Objective Assessments Start: 06/20/18 15:19 Freq: NEEDED Status: Active Protocol: Document 06/20/18 14:43 AB (Rec: 06/20/18 15:35 AB [id number]) Orientation Orientation/Cognition Level of Alertness Confusional State Orientation Name Safety Awareness Decreased Safety Awareness Memory Description Short Term Impaired Snf Impaired Gross Range of Motion Lower Extremity ROM Assessment Within Functional Limits Strength Lower Extremity Strength Assessment Bilaterally Impaired Hip 3+/5 Knee 4-/5 M6 PT-IP Treatment Start: 06/20/18 15:19 Freq: NEEDED Status: Active Protocol: Document 06/20/18 14:43 AB (Rec: 06/20/18 15:35 AB [id number]) Physical Therapy Treatment Education Education Provided Safety M7 PT-IP Assessment and Plan Start: 06/20/18 15:19 Freq: NEEDED Status: Active Protocol: Document 06/20/18 14:43 AB (Rec: 06/20/18 15:35 AB [id number]) PT Summary Assessment and Plan Potential Rehabilitation Potential Fair Status of Condition at Evaluation Evolving Summary Impairments Pain ROM Strength Balance Coordination Sensation Tone Cognition Bed Mobility Transfers Gait Activity Tolerance Assessment Summary pt requiring 2 person assist with mobility at this time and will need SNF rehab to improve strength and functional mobility. Goals Bed Mobility Goal Minimal Assistance Transfer Goal Minimal Assistance Front Wheeled Walker Gait Goal Minimal Assistance Front Wheel Walker Gait Distance 40 Days to Meet Goals 5 Frequency of Treatment Frequency Of Treatment Twice a Day Treatment Plan Physical Therapy Treatment Plan Bed Mobility Training Transfer Training Gait Training Therapeutic Exercise Balance Retraining Post Op Education Discharge Planning Hot or Cold Pack Neuromuscular Re-ed Coordination Retraining Manual Therapy Other Recommendations and Next Treatment transfers, ambulation Focus Recommendations To Nursing Amount of Assist Needed 2 Person Assist Mechanical Lift Discharge Recommendations PT Discharge Recommendations SNF Rehab
[2018-06-20 14:48] LABS: Cholesterol 164 mg/dL (140-199); HDL Cholesterol 28 mg/dL (40-60); LDL Cholesterol Calculated 111 mg/dL (<100); Triglycerides 123 mg/dL (35-150)
--- NOTE | 2018-06-20 14:57 | ST.IPCSEOM ---
Care Team Visit Care Team Role Provider Type JAVIER Schmitt Primary Care Provider Non-Staff Specialty: Medical Address: [address] [place] [address], [facility] Fax: Email: Fareed Mccormick DO Emergency Provider Physician Specialty: Emergency Medicine Address: [address] [place] [address], [id number] Email: Marshall Vinson MD Admit Provider Physician Attending Provider Other Providers Specialty: Internal Medicine Address: [address] [place] [address], [id number] Email: Past Medical History (Last Reviewed 05/15/18 @ 18:20 by Emil Pagan MD) CHF (congestive heart failure) (Acute Medical) Cataract (Acute Medical) bilateral Colon cancer (Acute Medical) Coronary artery disease (Acute Medical) Hyperlipidemia (Acute Medical) Hypertension (Acute Medical) Polymyalgia rheumatica (Acute Medical) Speech-Language Pathology Swallow Evaluation LINE HELPER Clinical Swallow Evaluation Start: 06/20/18 14:38 Freq: Status: Active Protocol: Document 06/20/18 14:38 MRM (Rec: 06/20/18 14:57 MRM [id number]) Clinical Swallow Evaluation Session Time Visit Start Time 14:10 Visit Stop Time 14:30 Total Visit Minutes 20 Referral Referring Physician Aleah Fall Reason for Referral CVA v TIA Setting Assessment Location Acute Care Visit Type Note Type Initial Evaluation Next Note Type Next Note Type Treatment Note Patient Information Identification Type Name Date of ID Wristband History Patient is an 82 year old patient who is a resident of [facility]. He has a significant medical for atrial fibrillation with history of previous CVA. He presented to [facility] with symptoms of new CVA. Early this morning, he was unable to raise his arms, squeeze his hands and/or stand at baseline. He was brought to [facility] for workups . He is a DNR/DNI and does not wish to have aggressive rehabilitation. Head CT showed no significant findings. He declined brain MRI and/or carotid study. Subjective Observations Patient was resting in bed with no family present. Able to rouse with verbal cues. Agreed to participate in clinical swallow evaluation. Was oriented to location, but at the end of the eval, requested to be taken back to his room to sit in his chair. Cognitive level questionable. No report of pain pre/post treatment. LINE HELPER stayed on patient's left side througout the eval to encourage looking across midline. Evaluation Liquids Trialed Ice Chips Thin Solids Trialed Puree Dysphagia Mechanical Administration Type Tea Spoon Cup Single Sip Straw Self-Feeding Dependent Feeding Oral Impairment Mildly Impaired Oral Strategies Upright at 90 degrees Double Swallow Lingual Sweep Controlled Bite/Sip Size Alternate Liquids/Solids Oral Phase Comments Observed trace anterior loss of water x2 with initial sips, but improving throughout evaluation. No oral residue observed after trials of water and applesauce. Minimal oral residue observed on tongue after trials of egg salad (no bread). Munching matication with mild lateralization obesrved. Sufficient for tolerance of thin liquids, ice chips and puree textures. A-P propulsion evident with swallow time functional. Observed multiple swallows. Suspect piecemealing. Required multiple swallows to clear mouth before taking more bites , but he kept his lips sealed while doing this, demonstrating awareness of more in his mouth. Pharyngeal Impairment WFL Pharyngeal Strategies Sitting Upright (90 deg) Double Swallow Small Bites and Sips Alternate Liquids/Solids Pharyngeal Phase Comments Obesrved no overt s/s of aspiration throughout trials. Patient able to tolerate ice chips, thin liquids, puree textuers and small portion of egg salad (no bread) without coughing/throat clearing. After final trial of egg salad , observed wet vocal quality, but improved with spontaneous double swallow. Able to take large sips of water and swallow mulitple times without overt s/s of aspiration. However, he has generalized weakness and a delay in response time to verbal stimuli and intake/swallowing coordination. As a result, he is at risk of aspiration should his awareness decline or his intake rate increase. He declined trials of more solid textures. Findings Dysphagia Type Mild-moderate orophrayngeal dysphagia Rehabilitation Potential Good Impressions Patient presents with mild- moderate orophrayngeal dysphagia secondary to generalized weakness, reduced awareness, and delay in response time. He was able to tolerate thin liqudis and puree textures without overt s /s of aspiration, however. He did have difficulty holding cups and eating independently throughout evaluation. At one point, he dropped cup of applesauce on his chest instead of putting it down on the tray. Due to this generalized weakness and reduced awareness, he would strongly benefit from 1:1 supervision during meals. He declined trials of more solid textures, and as a result, a more restrictive diet is recommended due to inability to confirm ability to tolerate more solid textures. RECOMMEND: Thin liquids (straw okay) with puree textures. Medication to be administered as tolerated. 1:1 supervision. Double swallow. Slow rate of intake. Alternate liquids/ solids. Position upright. Strict oral care. LINE HELPER will follow up Diet Recommendations Liquids Order Thin Diet Order Dysphagia Blenderized Medication Recommendations As Tolerated Additional Dietary Needs 1:1 Supervision Encourage to Self-Feed Reminders to Use Strategies Aspiration Precautions Recommended Precautions Upright at 90 Degrees Alternate Liquids/Solids Frequent Rest Periods Small Bites/Sips Effortful Swallow Double Swallow Check for Pocketing Treatment Plan Placement Recommendations after Senior Living Facility Discharge Appropriate for Therapy Yes Therapy Recommendations Ongoing dysphagia therapy to provide strengthening exercises and advance diet as tolerated. Dysphagia Goals Diet advancement as tolerated Independent eating LINE HELPER Oral Motor Exam Start: 06/20/18 14:38 Freq: Status: Active Protocol: Document 06/20/18 14:38 MRM (Rec: 06/20/18 14:57 MRM [id number]) Oral Motor Examination Face Facial Symmetry Left Side Asymmetry Facial Movement Controlled Mouth Teeth Characteristics Missing Pucker Lips Reduced ROM Smile Reduced ROM Puff Cheeks Reduced Strength Tongue Size Normal Tongue Movement Protrusion/Retraction Strength Mildly Reduced Protrusion/Retraction Range of Movement Reduced Protrusion/Retraction Coordination Mildly Discoordinated Elevation/Depression Strength Mildly Reduced Elevation/Depression Coordination Mildly Discoordinated Lateralization Strength Mildly Reduced Lateralization Range of Movement Reduced Lateralization Coordination Mildly Discoordinated Hyolaryngeal Movement Hyolaryngeal Movement Comments Functional hyolaryngeal motion Volitional Cough/Swallow Comments Able to produce throat clear and cough after request
--- NOTE | 2018-06-20 16:00 | OT.IP.TRT ---
Occupational Therapy Treatment Note M3 OT- IP Subjective and Pain Start: 06/21/18 07:45 Freq: Status: Active Protocol: Document 06/20/18 16:00 PJM (Rec: 06/21/18 07:46 PJM [id number]) OT- Subjective Occupational Therapy Visit Type Type Administrative Note Visit Start Time 16:00 Notes OT referral received. Attempted to see pt, but pt with PT and ST so pt unavailable. Will see in AM.
[2018-06-21] VITALS (9 sets, daily range): BP systolic 130–142; BP diastolic 60–99; PULSE 87–93; RESP 16–21; TEMP 36.3–36.6; O2SAT 94–97
--- NOTE | 2018-06-21 00:06 | PC.NURSE ---
Patient squints right eye, will open when asked.
[2018-06-21] MEDS: HEPARIN 5,000 UNIT/ML VIAL 5000 UNIT SUBCUT ×3 (00:28→19:30)
[2018-06-21] MEDS: SODIUM CHLORIDE 0.9% 1,000 ML 100 ML IV ×3 (00:29→19:30)
[2018-06-21 01:32] LABS: Bilirubin Urine UA NEGATIVE (NEGATIVE); Color Urine UA YELLOW; Glucose Urine UA NEGATIVE (Normal); Ketones Urine UA TRACE (NEGATIVE); Leukocyte Esterase Urine UA 2+ (NEGATIVE); Nitrite Urine UA NEGATIVE (Negative); Occult Blood Urine UA 3+ (Negative); Protein Urine UA 2+ (Negative); Specific Gravity Urine UA 1.025 (1.000-1.035); Urobilinogen Urine UA 0.2 E.U./dL (0.2)
[2018-06-21 01:39] LABS: Appearance Urine UA TURBID
[2018-06-21 04:16] LABS: Bacteria Urine Many (>30); Culture Indicated Urine Specimen Cultured; RBC Urine 1-5/HPF (0-5/HPF); WBC Urine >100/HPF (0-5/HPF)
--- NOTE | 2018-06-21 05:43 | PC.NURSE ---
Patient knew age,name,date,place. Thought it was 1982. Did not know time, clock in room has incorrect time. Was able to read time on clock, although incorrect. During pictoral questions for NIH scale patient could only say mama and thanks. All other words on page 4 he would say the last half of each word. On page 3 during sentences, he would also just read from the middle to the end of the word, without saying any beginning words. Patient has been fixating on putting on his pajamas. Despite cues that he is in the hospital, through out this shift has been saying he needs to get dressed, or he needs his pajamas. When trying to explain page 1 to me, he states that those people are trying to change their clothes. On page 2 he was only able to identify the glove and the chair. The cactus he said was people trying to change their clothes. He was unable to identify the june,feather, or hammock.
[2018-06-21 06:16] LABS: Hematocrit 36.3 % (41-53); Hemoglobin 11.7 g/dL (13.5-17.5); Mean Corpuscular HGB Conc 32.4 % (30-36); Mean Corpuscular Hemoglobin 30.3 PG (26-34); Mean Corpuscular Volume 93.7 fL (80-100); Platelet Count 361 X10^3/uL (150-400); Red Blood Cell Count 3.87 X10^6/uL (4.5-5.9); Red Cell Distribution Width 15.2 % (11.6-14.8); White Blood Cell Count 11.7 X10^3/uL (4.5-11.0)
[2018-06-21 06:17] LABS: Add Manual Diff / Slide Review YES
[2018-06-21 06:54] LABS: Neutrophils Absolute Manual 8892 /uL (3000-5900); Total Cells Counted 100
[2018-06-21 06:55] LABS: Anisocytosis 1+
--- NOTE | 2018-06-21 09:17 | PM.PN.1 ---
Subjective Date Patient Seen: 06/21/18 Interval history: Dameon Burt this is an 82-year-old male with a past medical history significant for atrial fibrillation with history of previous CVA who presented to [facility] from [facility] for symptoms concerning of new CVA and now being treated for UTI. The patient is resting in bed comfortably and in no acute distress. He headache, ear pain, rhinitis, sore throat, cough, shortness of breath, chest pain, abdominal pain, nausea, vomiting, fever, chills, dysuria, diarrhea or constipation. He continues to endorse right-sided shoulder pain which is chronic in nature. He is voiding and eliminating without difficulty. Exam Vital Signs (past 8 hours): - 06/21/18 05:57 Temperature 97.6 F Pulse Rate 93 H Respiratory Rate 18 Blood Pressure 142/99 H Oxygen Delivery Method Room Air Oxygen Flow Rate 0 Narrative Exam Narrative: General: Elderly gentleman lying in bed comfortably and in non acute distress, well-developed, well-nourished, appropriately interactive HEENT: Normocephalic, atraumatic. External ears without defect. Pupils equal, round, and reactive to light. Anicteric sclerae, moist conjunctivae, and no lid lag. Oropharynx free of erythema and cobble stoning with dry mucosa. Neck: Supple with full range of motion. No jugular venous distension. No bruits. No lymphadenopathy or thyromegaly. Cardiovascular: Irregularly irregular without murmurs, rubs, or gallops appreciated. Pulmonary: Clear to auscultation bilaterally without crackles, wheezes, or rhonchi. Normal respiratory effort with no use of accessory muscles. Abdomen: Bowel tones present. Soft, non-tender, non-distended. No hepatosplenomegaly or masses appreciated. Extremities: No clubbing, cyanosis, or edema. Skin: Normal temperature, poor turgor, and texture; no rash, ulcers, or subcutaneous nodules appreciated. Neurological: Awake and alert, oriented to person and place, slight slurred speech and mild expressive aphasia, cognition waxes and wanes. Objective Labs Result Diagrams: 06/21/18 05:48 06/20/18 03:30 Labs: Laboratory Results - last 24 hr 06/20/18 06/20/18 06/21/18 03:30 15:30 05:48 WBC 11.7 H RBC 3.87 L Hgb 11.7 L Hct 36.3 L MCV 93.7 MCH 30.3 MCHC 32.4 RDW 15.2 H Plt Count 361 Neut % (Auto) Not Reportable Lymph % (Auto) Not Reportable Donley % (Auto) Not Reportable Eos % (Auto) Not Reportable Baso % (Auto) Not Reportable Total Counted 100 Seg Neutrophils % 71.0 H Band Neutrophils % 5.0 Lymphocytes % (Manual) 9.0 L Monocytes % (Manual) 13.0 H Eosinophils % (Manual) 1.0 L Basophils % (Manual) 1.0 Neutrophils # (Manual) 8892 H RBC Morphology See below Anisocytosis 1+ H Sodium 142 Potassium 4.2 Chloride 105 Carbon Dioxide 24 BUN 19 Creatinine 0.90 Estimated GFR > 60.0 BUN/Creatinine Ratio 21.1 Glucose 151 H Calcium 9.2 Triglycerides 123 Cholesterol 164 LDL Cholesterol, Calc 111 H HDL Cholesterol 28 L Urine Color Yellow Urine Appearance Turbid Urine pH 5.0 Ur Specific Riparius 1.025 Urine Protein 2+ H Urine Glucose (UA) Negative Urine Ketones Trace H Urine Occult Blood 3+ H Urine Nitrate Negative Urine Bilirubin Negative Urine Urobilinogen 0.2 Ur Leukocyte Esterase 2+ H Urine RBC 1-5/hpf Urine WBC >100/hpf H Urine Bacteria Many (>30) H Ur Culture Indicated? Specimen cultured Micro UA Comment Not Reportable Assessment & Plan Plan: Assessment/Plan Narrative: Plan: Assessment/Plan Narrative: 1. Possible CVA versus TIA, present on admission. Active. -continue physical therapy, speech therapy, and occupational therapy evaluations and treatment. Follow-up modified barium swallow for speech therapy today. -Orthostatic blood pressure and pulse rate q.4 hours while awake -Continue aspirin 81 mg daily. Patient is at high risk of falls, therefore, blood thinners are contraindicated. -The patient is DNR/DNI and does not wish to have further imaging performed as it would not change the outcome. The family would like the patient to be evaluated for more aggressive stroke rehabilitation versus return to his assisted living facility. 2. Acute urinary tract infection, present on admission. Active. -A straight catheterization was perfromed to obtain urinalysis and resulted in grossly infected urine. Awaiting cultures. Ordered ceftriaxone 2 g daily. No other obvious signs of infection. Not likely related to steroids as patient has been off for several weeks. -Continue IV fluids with normal saline at 100 mL/hr. 3. Atrial fibrillation, present on admission. Stable. -Held cardiac meds and will continue once adequately hydrated and as tolerated. 4. Hyperlipidemia, present on admission. Presume stable. -Ordered lipid panel, pending. -Patient has previously been on a statin which was discontinued for unknown reasons. Will discuss with family whether or not they would like to restart this therapy for stroke prevention. 5. Polymyalgia Rheumatica -Continue analgesics prn. 6. History of Crohn's disease, present on admission. Presume stable. -Continue home medication mesalamine. Of note, the patient was previously on prednisone which was discontinued earlier this month. DVT prophylaxis: SubQ Heparin Disposition: Await culture and sensitivities of urine and continue to assess improvement in cognition. Likely to discharge back to [facility] in 1-2 days. Quality VTE Deep Vein Thrombosis/Pulmonary Embolism Present on Admission: No
--- NOTE | 2018-06-21 10:06 | PT.IPTN ---
Physical Therapy Treatment Note M2 PT-IP Current Condition Start: 06/20/18 15:19 Freq: NEEDED Status: Active Protocol: Document 06/20/18 14:43 AB (Rec: 06/20/18 15:35 AB [id number]) Physical Therapy Current Condition Current Condition Evaluation Date 06/20/18 Treatment Diagnosis possible stroke; difficulty in walking Onset Date 06/20/18 Precautions Other Precautions fall risk; bed/chair alarm M3 PT-IP Subjective Start: 06/20/18 15:19 Freq: NEEDED Status: Active Protocol: Document 06/21/18 10:06 AB (Rec: 06/21/18 10:44 AB [id number]) Subjective Physical Therapy Visit Type Type Treatment Note Visit Start Time 10:06 Visit Stop Time 10:28 Total Visit Minutes 22 Number of POWERTRAIN CONTROL SYSTEMS ENGINEER Visits 0 Physical Therapy Visit Comments Patient Comments pt agreed to get up M4 PT-IP Mobility and Gait Start: 06/20/18 15:19 Freq: NEEDED Status: Active Protocol: Document 06/21/18 10:06 AB (Rec: 06/21/18 10:44 AB [id number]) PT-Bed Mobility Assessment Supine to Sit Supine to Sit Maximum Assistance 1 Person Assistance 2 Person Assistance Scooting Scooting to Edge of Bed Maximum Assistance PT-Transfer Assessment Sit to and From Stand Sit to and from Stand Maximum Assistance 2 Person Assistance Use of Upper Extremities Equipment Transfer Assistive Device Gait Belt Front Wheeled Walker Orthotic/Prosthetic Devices or Brace: No Transfers Transfer Destination Chair Transfer Technique Stand Step Pivot Transfer Ability Level of Assist Maximum Assistance 2 Person Assistance Use of Upper Extremities Comments Mobility Comments pt completed sit to stand from EOB max A x 2 and max cues. presents with increase lateral trunk lean to the L. unable to move LLE during transfer and required maxA to move LLE. pt completed sit to stand from chair max A x 2 and max cues in an attempt to ambulate with pt but pt stated that he has to sit back down after ~ 3 sec of standing and stated that he is tired. positioned pt on chair. call light and table placed within reach. PT-Balance Assessment Sitting Balance and Reactions Static Sitting Balance Ability Poor Dynamic Sitting Balance Ability Poor Standing Balance and Reactions Static Standing Balance Ability Poor Dynamic Standing Balance Ability Poor Device Used FWW M5 PT-IP Objective Assessments Start: 06/20/18 15:19 Freq: NEEDED Status: Active Protocol: Document 06/20/18 14:43 AB (Rec: 06/20/18 15:35 AB [id number]) Orientation Orientation/Cognition Level of Alertness Confusional State Orientation Name Safety Awareness Decreased Safety Awareness Memory Description Short Term Impaired Optometric Tech Impaired Gross Range of Motion Lower Extremity ROM Assessment Within Functional Limits Strength Lower Extremity Strength Assessment Bilaterally Impaired Hip 3+/5 Knee 4-/5 M6 PT-IP Treatment Start: 06/20/18 15:19 Freq: NEEDED Status: Active Protocol: Document 06/20/18 14:43 AB (Rec: 06/20/18 15:35 AB [id number]) Physical Therapy Treatment Education Education Provided Safety M7 PT-IP Assessment and Plan Start: 06/20/18 15:19 Freq: NEEDED Status: Active Protocol: Document 06/21/18 10:06 AB (Rec: 06/21/18 10:44 AB [id number]) PT Summary Assessment and Plan Potential Rehabilitation Potential Fair Summary Impairments Pain ROM Strength Balance Coordination Sensation Tone Cognition Bed Mobility Transfers Gait Activity Tolerance Progress Towards Goals Slow Progress due to Medical Issues Slow Progress due to Activity Tolerance Assessment Summary pt continues to require 2 person max A with all mobilities and presents with decrease activity tolerance. pt will benefit from SNF rehab to improve mobility and decrease burden of care. Goals Bed Mobility Goal Minimal Assistance Transfer Goal Minimal Assistance Front Wheeled Walker Gait Goal Minimal Assistance Front Wheel Walker Gait Distance 40 Days to Meet Goals 5 Frequency of Treatment Frequency Of Treatment Twice a Day Treatment Plan Physical Therapy Treatment Plan Bed Mobility Training Transfer Training Gait Training Therapeutic Exercise Balance Retraining Post Op Education Discharge Planning Hot or Cold Pack Neuromuscular Re-ed Coordination Retraining Manual Therapy Other Recommendations and Next Treatment transfers, ambulation Focus Recommendations To Nursing Amount of Assist Needed 2 Person Assist Mechanical Lift Discharge Recommendations PT Discharge Recommendations SNF Rehab
[2018-06-21] MEDS: PANTOPRAZOLE 20 MG TABLET PO (10:27)
[2018-06-21] MEDS: MESALAMINE 400 MG CAP.DRTAB. 1200 MG PO (10:27)
[2018-06-21] MEDS: CEFTRIAXONE 2 GM/50 ML FROZ.PIGGY IV (10:55)
--- NOTE | 2018-06-21 11:38 | ST.IPDYTX ---
Care Team Visit Care Team Role Provider Type JAVIER Schmitt Primary Care Provider Non-Staff Specialty: Medical Address: [address] [place] [address], [id number] Fax: Email: Fareed Mccormick DO Emergency Provider Physician Specialty: Emergency Medicine Address: [address] [place] [address], [id number] Email: Marshall Vinson MD Admit Provider Physician Attending Provider Other Providers Specialty: Internal Medicine Address: [address] [place] [address], [id number] Email: TANK BOTTOM ASSEMBLER Dysphagia Treatment TANK BOTTOM ASSEMBLER Dysphagia Treatment Start: 06/20/18 14:38 Freq: Status: Active Protocol: Document 06/21/18 11:29 MRM (Rec: 06/21/18 11:35 MRM [id number]) Dysphagia Treatment Session Time Visit Start Time 11:00 Visit Stop Time 11:20 Total Visit Minutes 20 Setting Assessment Location Acute Care Visit Type Note Type Treatment Note Next Note Type Next Note Type Treatment Note Patient Information Identification Type Name Subjective Observations Patient awake and alert, finishing therapy with OT upon ST arrival. OT stated that he appears to be doing better today. OT spoke with Deepika Georges regarding the patient's baseline. They stated that he has periodic times of confusion, but did not state that he has dementia . Treatment Liquids Trialed Thin Solids Trialed Puree Dysphagia Mechanical Administration Type Cup Single Sip Straw Dependent Feeding Oral Strategies Upright at 90 degrees Double Swallow Lingual Sweep Alternate Liquids/Solids Pharyngeal Strategies Double Swallow Small Bites and Sips Alternate Liquids/Solids Treatment Activities Patient upright in chair. Trialed cup sips of thin liquid and straw sips of thin liquid. Trialed pudding and small pieces of diced fruit. Immediately dropped cup with left hand after taking a drink , which was suprising to him and caused him to cough. TANK BOTTOM ASSEMBLER then assisted patient in drinking from cup. No overt s/ s of aspiration then observed. Also able to trial thin liquids via straw, no overt s/ s of aspiration. No overt s/s of aspiration observed with pudding or fruit. However, oral residue observed on left side in buccal sulcus. With cues for lingual sweep, he was able to consistently perform this exercise with minimal reminders to keep mouth clear. However, he would benefit from more cues for reminders. Assessment Patient Response to Treatment Good Rehab Potential Good Assessment of Improvement Steadily improving, requires supervision with meals due to tendance to drop things in hands. Cues for slow rate, double swallow, lingual sweep due to left-sided pocketing. Discussed diet upgrade with patient who stated that he wants to keep things the way they are (thin liquids, puree textures). Recommend no diet upgrade, per patient request. Diet Recommendations Recommendations Continue Current Diet Liquids Order Thin Diet Order Dysphagia Blenderized Medication Recommendations As Tolerated Whole in Carrier Aspiration Precautions Recommended Precautions Upright at 90 Degrees Alternate Liquids/Solids Frequent Rest Periods Small Bites/Sips Effortful Swallow Double Swallow Treatment Plan Placement Recommendation after Discharge [facility] Facility Appropriate for Continued Therapy Yes Therapy Recommendations Ongoing dysphagia therapy to provide strengthening exercises and advance diet as tolerated. Dysphagia Goals Diet advancement as tolerated Independent eating
--- NOTE | 2018-06-21 11:52 | OT.IP.EVAL ---
Addendum entered and electronically signed by Shital Garcia OT 06/21/18 12:29: Diagnosis: possible CVA and weakness Original Note: Past Medical History (Last Reviewed 05/15/18 @ 18:20 by Emil Pagan MD) CHF (congestive heart failure) (Acute) Cataract (Acute) Colon cancer (Acute) Coronary artery disease (Acute) Hyperlipidemia (Acute) Hypertension (Acute) Polymyalgia rheumatica (Acute) Surgical History (Last Updated 06/20/18 @ 13:25 by Aleah Fall DO) History of tonsillectomy (Acute) H/O total hip arthroplasty (Acute) History of colon resection (Acute) Occupational Therapy Inpatient Evaluation/Re-Eval M1 PT/OT-IP Prior Functional Status Start: 06/20/18 15:19 Freq: NEEDED Status: Active Protocol: Document 06/21/18 11:15 [facility] (Rec: 06/21/18 11:52 [facility] [id number]) Medical Review Prior Functional Status Medical History Reviewed Yes Communication able to answer questions appropriately Mobility and Gait per pt: he needs assistance with bed mobility, transfers and ambuation using FWW. calls for assistance and stated that the aides assists him but he usually stays in bed and get up only when he needs to use the toilet and for meals. has a manual w/c and stated that the aides wheels him to the dining room for lunch and dinner. Activities of Daily Living and IADL's Called Deepika to talked to staff, nurse states prior pt needing assist for dressing, bathing, and toileting and/or brief changes due to weakness. Pt able to follow commands however has periods of confusion. Transfers only stand pivot and MODA x 1, pt did not walk . Staff pushes pt in manual wc to dining room and others places as needed. Social History Household Members spouse Living Arrangements Skilled Nurse Facility Number of Floors (Floors) One Floor Number of Stairs To Enter/Railing? Lives at [facility] Home Environment Standard Height Toilet Walk in Shower Home Equipment Front Wheel Walker Manual Wheelchair Shower Seat with Backrest Hand Held Shower Grab Bars Near Toilet Grab Bars In Shower Employment Status Retired Additional Social History Comment stated that he has an adjustable bed. M2 OT-IP Current Condition Start: 06/21/18 07:45 Freq: Status: Active Protocol: Document 06/21/18 11:15 [facility] (Rec: 06/21/18 11:52 [facility] [id number]) Occupational Therapy Current Condition Current Condition Evaluation Date 06/21/18 Treatment Diagnosis decreased self care, functional mobility due to recurrent falls Diagnosis Onset Date 06/20/18 Post Operative Precautions Other Precautions fall risk; bed/chair alarm M3 OT- IP Subjective and Pain Start: 06/21/18 07:45 Freq: Status: Active Protocol: Document 06/21/18 11:15 [facility] (Rec: 06/21/18 11:52 [facility] [id number]) OT- Subjective Occupational Therapy Visit Type Type Initial Evaluation Visit Start Time 10:05 Visit Stop Time 10:30 Total Visit Minutes 30 Notes Pt alos seen [id number]. Occupational Therapy Visit Comments Patient Comments Pt cooperative for OT eval and COtxt with PT as 2 person assist to get up and for transfer. Patient/Caregiver Goals Pt wanting to go back to [facility] OT Pain Assessment Pain When Pain Assessed At Rest Pain Present Pain Present Denied Pain M4 OT- IP ADL's Start: 06/21/18 07:45 Freq: Status: Active Protocol: Document 06/21/18 11:15 [facility] (Rec: 06/21/18 11:52 [facility] [id number]) OT [id number] Comments OT Self-Feeding Comments Pt able to do hand to mouth right hand , decreased control for LUE. OT ADL-Grooming General Evaluation Areas Needing Assistance Retrieving/Set-up of Grooming Items Comments OT Grooming Comments VC for completeness with mouth swab, able to wash his face and hands after set-up. OT ADL-Oral Care General Eval Oral Care Ability Standby Assistance Areas of Assistance Retrieving/Set-Up of Items Comments Oral Care Comments VC for completeness. OT ADL-Dressing General Eval Lower Body Dressing Ability Total Assistance Comments OT Dressing Comments Total assist at this time. OT ADL-Toileting Comments OT Toileting Comments Dependent at this time. M6 OT- IP Functional Cognition Start: 06/21/18 07:45 Freq: Status: Active Protocol: Document 06/21/18 11:15 [facility] (Rec: 06/21/18 11:52 [facility] [id number]) Cognitive Factors Limiting Selfcare Function Cognitive Ability Level of Alertness Alert Patient Orientation Name Situation Attention Span Ability Capable of Focused Attention Capable of Sustained Attention Ability to Follow Commands Able to Follow One Step Commands with Increased Time Able to Follow One Step Commands with Repetition Cognitive Comments Cognitive Assessment Comments Pt able to follow simple short commands. Doubled checked information pt given and mostly accurate however staff states does not use the FWW to walk versus what pt stated. OT- Vision and Hearing OT- Vision Assessment Vision Assessment Comments Pt able to scan to left and visual field appear intact. Pt 's right eye kept mainly closed. M7 OT- IP Mobility and Balance Start: 06/21/18 07:45 Freq: Status: Active Protocol: Document 06/21/18 11:15 [facility] (Rec: 06/21/18 11:52 [facility] [id number]) OT- Bed Mobility Assessment Rolling Type of Rolling Roll to Right Level of Assistance Maximum Assistance 1 Person Assistance Supine to Sit Supine to Sit Assist Maximum Assistance 2 Person Assistance OT-Transfer Assessment Sit to and From Stand Sit to and from Stand Maximum Assistance 2 Person Assistance Transfers Transfer Ability Maximum Assistance 2 Person Assistance Technique Transfer Destination Chair Transfer Technique Stand Step Pivot Devices Transfer Assistive Devices Gait Belt Front Wheeled Walker Comments Mobility Comments Pt right foot tends to slide forwards while coming to stand . MAX A x 2 to stand and for transfer with FWW, guidance for FWW, balance and help weight shift. Pt tends to sit with posterior tilt while sitting and very unsteady on his feet. OT- Balance Assessment Sitting Balance and Reactions Static Sitting Balance Ability Fair Dynamic Sitting Balance Ability Poor Standing Balance and Reactions Static Standing Balance Ability Poor Dynamic Standing Balance Ability Poor M8 OT- IP Objective Assessments Start: 06/21/18 07:45 Freq: Status: Active Protocol: Document 06/21/18 11:15 [facility] (Rec: 06/21/18 11:52 [facility] [id number]) OT Gross Range of Motion Upper Extremity Range of Motion Assessment Bilaterally Impaired ROM Impairments AROM RUE 0-50, LUE 0-75 PROM RUE 0-80, LUE 0-85 OT Strength Upper Extremity Strength Assessment Bilaterally Impaired Comments Strength Comments BUE strength 3-/5 to 4-/5 form proximal to distal LUE, RUE 3 -/5 to 3+/5. OT- Coordination Assessment Comments Coordination Comments Increased time for diadochokinesia. OT Sensation Assessment Comments Summary Comments Intact for light touch BUE. Decreased proprioception left versus right. M9 OT- IP Assessment and Plan Start: 06/21/18 07:45 Freq: Status: Active Protocol: Document 06/21/18 11:15 [facility] (Rec: 06/21/18 11:52 [facility] [id number]) OT Summary Assessment and Plan Potential Rehabilitation Potential Fair Analytic Complexity at Evaluation Low Summary OT Impairments Strength Balance Coordination Functional Cognition Functional Mobility Self-Feeding Grooming Dressing Toileting Bathing Toilet Transfers Shower Transfers Progress Towards Goals Slow Progress due to Medical Issues Slow Progress due to Activity Tolerance Slow Progress due to Cognition Assessment Summary Pt low complexity and main barrier is decreased strength, endurance, balance, and now needing two person assist for all needs, prior pt just needing one person to assist for needs at [facility]. Pt would benefit from skilled rehab, but refusing to go and would rather return to [facility]. Goals Self-Feeding Goal Standby Assistance Grooming Goal Standby Assistance Dressing Goal Moderate Assistance Toilet Transfer Goal Moderate Assistance OT-Other Goals Pt to be able to tolerate BUE exercises and gentle stretching to hep increase AROm for ADL needs and function. Days to Meet Goals 7 Frequency of Treatment Frequency Of Treatment Once a Day Treatment Plan OT Treatment Plan ADL Training Functional Cognition Training Functional Mobility Therapeutic Exercises Patient/Family Education Discharge Planning Other Treatment Recommendations and Next BUE exercises and stretching, Treatment Focus stand pivot transfer to [facility]. Discharge Recommendations OT Discharge Recommendations SNF Rehab Other Discharge Recommendations Pt refusing to go to [facility], therefore pending [facility] to take him back with increased assist.
--- NOTE | 2018-06-21 13:00 | PT.IPTN ---
Physical Therapy Treatment Note M2 PT-IP Current Condition Start: 06/20/18 15:19 Freq: NEEDED Status: Active Protocol: Document 06/20/18 14:43 AB (Rec: 06/20/18 15:35 AB [id number]) Physical Therapy Current Condition Current Condition Evaluation Date 06/20/18 Treatment Diagnosis possible stroke; difficulty in walking Onset Date 06/20/18 Precautions Other Precautions fall risk; bed/chair alarm M3 PT-IP Subjective Start: 06/20/18 15:19 Freq: NEEDED Status: Active Protocol: Document 06/21/18 15:42 GGD (Rec: 06/21/18 15:53 GGD [id number]) Subjective Physical Therapy Visit Type Type Treatment Note Visit Start Time 12:45 Visit Stop Time 13:00 Total Visit Minutes 15 Number of FIELD EXAMINER Visits 1 Physical Therapy Visit Comments Patient Comments Pt wants to get back to bed. M4 PT-IP Mobility and Gait Start: 06/20/18 15:19 Freq: NEEDED Status: Active Protocol: Document 06/21/18 15:42 GGD (Rec: 06/21/18 15:53 GGD [id number]) PT-Bed Mobility Assessment Sit to Supine Sit to Supine Moderate Assistance 2 Person Assistance PT-Transfer Assessment Sit to and From Stand Sit to and from Stand Moderate Assistance 2 Person Assistance Equipment Transfer Assistive Device Gait Belt Orthotic/Prosthetic Devices or Brace: No Transfers Transfer Destination Bed Transfer Technique Stand Pivot Transfer Ability Level of Assist Moderate Assistance 2 Person Assistance Comments Mobility Comments Pt need left knee blocking with standing and transfer. M5 PT-IP Objective Assessments Start: 06/20/18 15:19 Freq: NEEDED Status: Active Protocol: Document 06/20/18 14:43 AB (Rec: 06/20/18 15:35 AB [id number]) Orientation Orientation/Cognition Level of Alertness Confusional State Orientation Name Safety Awareness Decreased Safety Awareness Memory Description Short Term Impaired Penitentiary Impaired Gross Range of Motion Lower Extremity ROM Assessment Within Functional Limits Strength Lower Extremity Strength Assessment Bilaterally Impaired Hip 3+/5 Knee 4-/5 M6 PT-IP Treatment Start: 06/20/18 15:19 Freq: NEEDED Status: Active Protocol: Document 06/20/18 14:43 AB (Rec: 06/20/18 15:35 AB [id number]) Physical Therapy Treatment Education Education Provided Safety M7 PT-IP Assessment and Plan Start: 12/20/18 15:19 Freq: NEEDED Status: Active Protocol: Document 06/21/18 15:42 GGD (Rec: 06/21/18 15:53 GGD [id number]) PT Summary Assessment and Plan Summary Assessment Summary Pt needing less assist with transfer. He did better with stand pivot without FWW. He still have left knee buckling. He needs increase in assist from base line. Frequency of Treatment Frequency Of Treatment Twice a Day Treatment Plan Physical Therapy Treatment Plan Bed Mobility Training Transfer Training Gait Training Therapeutic Exercise Balance Retraining Post Op Education Discharge Planning Hot or Cold Pack Neuromuscular Re-ed Coordination Retraining Manual Therapy Recommendations To Nursing Amount of Assist Needed 2 Person Assist Mechanical Lift Discharge Recommendations PT Discharge Recommendations SNF Rehab
--- NOTE | 2018-06-21 13:39 | PC.NURSE ---
Report rec'd from MichelineRN at 1315 at bedside. Pt awake, able to be part of conversation. Oriented to name, , states June 20, 2016, [facility], I fell. Denies pain, No distress noted, pt asking to have stock cannel put on. High fall risk precautions in place, bed alarm on, call light on pt's lap. IVF infusing well to right wrist PIV. No voiced concerns at this time.
--- NOTE | 2018-06-21 16:43 | CM.IDA ---
DCP Assessment: Met w/pt's spouse ANALY and son Isaac outside of very briefly yesterday, while pt was bathing. Both agreed that pt is tired of being poked and prodded and has made clear he does not want addtl scans, extensive work up etc. Pt and family were awaiting a conversation w/ the hospitalist so this ANGLE DOZER OPERATOR suggested a conversation after this. Today, did not have an opportunity to contact family, no one at bedside. Placed call to Anna Marie at [facility] to understand steps forward in DCP; family indicated yesterday they hoped pt would return home upon DC. Anna Marie anticipated pt could return home and that the staff could accommodate pt's needs even if they had increased. Pt has been making a decline and has required assistance for transfers to and from his w/c. No clinicals needed today per Anna Marie. Reviewed idea of Hospice (?) Anna Marie feels Hospice service would be a great supportive measure for pt but this would need to be discussed w/pt, spouse and family. Anna Marie could f/u on this if DC planning team unable to before pt's DC. Anna Marie plans to do brief bedside assessment Sunday to discuss DCP w/ SWer and pt/family. Following closely. Pt is an inpt as of 06/20/18. VALENCIA Duarte Discharge Planning/Care Management CM Discharge Assessment Start: 06/21/18 16:40 Freq: Status: Active Protocol: Document 06/21/18 16:40 MARLA (Rec: 06/21/18 16:42 MARLA [id number]) Discharge Planning Assessment Assigned Color Adviser VALENCIA Win DPOA/Assigned Designee Name Josselin Mclaughlin, spouse Isaac Contact Information [phone] Advance Directives? Yes Advance Directives on File Yes: states they are on file here at the hospital History Provided By Patient Prior Living Arrangements Assisted Living Household Members spouse Type of transporation used prior to Relies on Others admit Facility Name Admitted From: [facility] Independent with ADL's No: Mostly w/c bound lately at [facility] Is patient alert and oriented? Yes: Mostly sharp minded, can get disoriented Needs Assistance With Bathing Grooming Meal Prep Toileting Managing Medications Home Chores / Shopping Comment Can feed himself Comment Spouse ANALY also lives at [facility] Comment Return to [facility] Discharge Plan Assisted Living Facility Transportation Arrangement Facility vs family Referrals Initiated None needed Review Status In Process
[2018-06-22] VITALS (9 sets, daily range): BP systolic 144–155; BP diastolic 66–87; PULSE 77–100; RESP 18–20; TEMP 36.3–36.7; O2SAT 95–98
[2018-06-22] MEDS: HEPARIN 5,000 UNIT/ML VIAL 5000 UNIT SUBCUT ×3 (03:14→20:13)
[2018-06-22] MEDS: SODIUM CHLORIDE 0.9% 1,000 ML 100 ML IV (05:48)
[2018-06-22] MEDS: PANTOPRAZOLE 20 MG TABLET PO (05:49)
--- NOTE | 2018-06-22 07:45 | P.PN_ITS ---
Subjective Date Patient Seen: 06/22/18 Interval history: Dameon Burt this is an 82-year-old male with a past medical history significant for atrial fibrillation with history of previous CVA who presented to [facility] from [facility] for symptoms concerning of new CVA and now being treated for UTI. The patient is resting in bedside chair comfortably and in no acute distress. He denies headache, shortness of breath, chest pain, abdominal pain, nausea, vomiting, fever, chills, dysuria, diarrhea or constipation. He continues to endorse right-sided shoulder pain which is chronic in nature. He is voiding and eliminating without difficulty. He continues to work with physical therapy, occupational therapy, and speech therapy daily. Exam Vital Signs (past 8 hours): - 06/22/18 00:50 06/22/18 03:34 Temperature 98.1 F Pulse Rate 80 Respiratory Rate 18 Blood Pressure 154/66 H Pulse Oximetry 96 97 Oxygen Delivery Method Room Air Oxygen Flow Rate 0 Narrative Exam Narrative: General: Elderly gentleman lying in bed comfortably and in non acute distress, well-developed, well-nourished, appropriately interactive HEENT: Normocephalic, atraumatic. External ears without defect. Pupils equal, round, and reactive to light. Anicteric sclerae, moist conjunctivae, and no lid lag. Dry mucosa. Neck: Supple with full range of motion. No jugular venous distension. No bruits. No lymphadenopathy or thyromegaly. Cardiovascular: Irregularly irregular without murmurs, rubs, or gallops appreciated. Pulmonary: Clear to auscultation bilaterally without crackles, wheezes, or rhonchi. Normal respiratory effort with no use of accessory muscles. Abdomen: Bowel tones present. Soft, non-tender, non-distended. No hepatosplenomegaly or masses appreciated. Extremities: No clubbing, cyanosis, or edema. Skin: Normal temperature, poor turgor, and texture; no rash, ulcers, or subcutaneous nodules appreciated. Neurological: Awake and alert, oriented to person and place, slight slurred speech and mild expressive aphasia, cognition waxes and wanes. Objective Labs Result Diagrams: 06/22/18 08:31 06/22/18 08:31 Assessment & Plan Plan: Assessment/Plan Narrative: 1. Possible CVA versus TIA, present on admission. Active. -Continue physical therapy, speech therapy, and occupational therapy evaluations and treatment. -Continue aspirin 81 mg daily. Patient is at high risk of falls, therefore, blood thinners are contraindicated.-Patient has previously been on a statin which was discontinued for unknown reasons. Will discuss with family whether or not they would like to restart this therapy for stroke prevention as side effect of myopathy an elderly is a concern. -The patient is DNR/DNI and does not wish to have further imaging performed as it would not change the management. 2. Acute urinary tract infection, present on admission. Active. -A straight catheterization was perfromed to obtain urinalysis and resulted in grossly infected urine. Preliminary cultures growing gram-negative bacilli likely E coli. Ordered ceftriaxone 2 g daily. No other obvious signs of infection. Not likely related to steroids as patient has been off for several weeks. -Discontinue IV fluids as patient has been adequately fluid resuscitated. 3. Atrial fibrillation, present on admission. Stable. -Held cardiac meds and will continue once adequately hydrated and as tolerated. 4. Hyperlipidemia, present on admission. Presume stable. -Lipid panel was unremarkable other than mildly elevated LDL at 111. -Patient has previously been on a statin which was discontinued for unknown reasons. Will discuss with family whether or not they would like to restart this therapy for stroke prevention as side effect of myopathy an elderly is a concern. 5. Polymyalgia Rheumatica -Continue analgesics prn. 6. History of Crohn's disease, present on admission. Presume stable. -Continue home medication mesalamine. Of note, the patient was previously on prednisone which was discontinued earlier this month. DVT prophylaxis: SubQ Heparin Disposition: Await culture results and sensitivities of urine and continue to assess improvement in cognition. Likely to discharge back to [facility] in 1- 2 days. Quality VTE Deep Vein Thrombosis/Pulmonary Embolism Present on Admission: No
[2018-06-22 09:09] LABS: Add Manual Diff / Slide Review NO; Basophils Percent Auto 0.3 % (0-2); Eosinophils Percent Auto 3.6 % (2-4); Hematocrit 38.4 % (41-53); Hemoglobin 12.4 g/dL (13.5-17.5); Lymphocytes Percent Auto 11.9 % (25-40); Mean Corpuscular HGB Conc 32.3 % (30-36); Mean Corpuscular Hemoglobin 30.3 PG (26-34); Mean Corpuscular Volume 93.8 fL (80-100); Monocytes Percent Auto 12.1 % (3-14); Neutrophils Absolute Auto 6700 /uL (1500-7000); Neutrophils Percent Auto 72.1 % (50-75); Platelet Count 357 X10^3/uL (150-400); Red Cell Distribution Width 15.2 % (11.6-14.8); White Blood Cell Count 9.4 X10^3/uL (4.5-11.0)
[2018-06-22] MEDS: MESALAMINE 400 MG CAP.DRTAB. 1200 MG PO (09:09)
[2018-06-22] MEDS: CEFTRIAXONE 2 GM/50 ML FROZ.PIGGY IV (09:09)
[2018-06-22 09:13] LABS: Alanine Aminotransferase 41 IU/L (21-72); Alkaline Phosphatase 112 U/L (38-126); Aspartate Aminotransferase 22 IU/L (17-59); BUN Creatinine Ratio 17.1 (6-22); Bilirubin Total 0.3 mg/dL (0.2-1.3); Blood Urea Nitrogen 12 mg/dL (9-20); Calcium 8.5 mg/dL (8.4-10.2); Carbon Dioxide 22 mmol/L (22-32); Chloride 108 mmol/L (98-107); Estimated Glomerular Filt Rate > 60.0 mL/min (>60); Globulin 3.1 g/dL (1.7-4.1); Glucose 83 mg/dL (80-110); HEMOLYSIS < 15 (0-50); Magnesium 2.1 mg/dL (1.6-2.3); Potassium 3.8 mmol/L (3.4-5.1); Sodium 141 mmol/L (137-145); Total Protein 6.1 g/dL (6.3-8.2)
--- NOTE | 2018-06-22 09:38 | OT.IP.TRT ---
Occupational Therapy Treatment Note M2 OT-IP Current Condition Start: 06/21/18 07:45 Freq: Status: Active Protocol: Document 06/21/18 11:15 [facility] (Rec: 06/21/18 11:52 [facility] [id number]) Occupational Therapy Current Condition Current Condition Evaluation Date 06/21/18 Treatment Diagnosis decreased self care, functional mobility due to recurrent falls Diagnosis Onset Date 06/20/18 Post Operative Precautions Other Precautions fall risk; bed/chair alarm M3 OT- IP Subjective and Pain Start: 06/21/18 07:45 Freq: Status: Active Protocol: Document 06/22/18 09:29 [facility] (Rec: 06/22/18 09:38 [facility] [id number]) OT- Subjective Occupational Therapy Visit Type Type Treatment Note Visit Start Time 09:07 Visit Stop Time 09:27 Total Visit Minutes 20 Occupational Therapy Visit Comments Patient Comments Pt needing encouragement to get up and then agreed to get up for breakfast. OT Pain Assessment Pain When Pain Assessed At Rest Pain Present Pain Present Denied Pain M4 OT- IP ADL's Start: 06/21/18 07:45 Freq: Status: Active Protocol: Document 06/22/18 09:29 [facility] (Rec: 06/22/18 09:38 [facility] [id number]) OT LMP-Pmey-Tavvitr General Evaluation Self-Feeding Ability Standby Assistance Areas Needing Assistance Opening Containers Comments OT Self-Feeding Comments Assist to open containers and items and vc to slow down rate . Nursing assisting pt to eat. OT ADL-Grooming General Evaluation Grooming Ability Standby Assistance Comments OT Grooming Comments Pt able to wash his face and hands with wash cloth after set-up. OT ADL-Toileting General Evaluation Areas Needing Assistance Manage Clothing Comments OT Toileting Comments Pt's brief needing to be changed, nurse assisted therapist. Pt able to roll side to side with MODA x 1. M6 OT- IP Functional Cognition Start: 06/21/18 07:45 Freq: Status: Active Protocol: Document 06/22/18 09:29 [facility] (Rec: 06/22/18 09:38 [facility] [id number]) Cognitive Factors Limiting Selfcare Function Cognitive Ability Level of Alertness Alert Confusional State Patient Orientation Name Attention Span Ability Capable of Focused Attention Unable to Sustain Attention Ability to Follow Commands Able to Follow One Step Commands with Increased Time Able to Follow One Step Commands with Repetition Memory Description Immediate Impaired Short Term Impaired Cutting Machine Operator Helper Impaired Working Impaired Cognitive Comments Cognitive Assessment Comments Pt very sleepy and thinking that it is night time, but aware in the hospital but unable to state where. M7 OT- IP Mobility and Balance Start: 06/21/18 07:45 Freq: Status: Active Protocol: Document 06/22/18 09:29 [facility] (Rec: 06/22/18 09:38 [facility] [id number]) OT- Bed Mobility Assessment Rolling Type of Rolling Bilateral Level of Assistance Moderate Assistance 1 Person Assistance Supine to Sit Supine to Sit Assist Maximum Assistance 1 Person Assistance OT-Transfer Assessment Sit to and From Stand Sit to and from Stand Maximum Assistance 1 Person Assistance Transfers Transfer Ability Maximum Assistance 1 Person Assistance Technique Transfer Destination Chair Transfer Technique Squat Pivot Devices Transfer Assistive Devices None Gait Belt Comments Mobility Comments Pt tend to lean to the left and posteriorly and able to stretch pt by having pt lean to the right. Pt able to sit with SBA. MAX A x1 for stand pivot transfer at this time. OT- Balance Assessment Sitting Balance and Reactions Static Sitting Balance Ability Fair Dynamic Sitting Balance Ability Poor Standing Balance and Reactions Static Standing Balance Ability Poor Dynamic Standing Balance Ability Poor M8 OT- IP Objective Assessments Start: 06/21/18 07:45 Freq: Status: Active Protocol: Document 06/21/18 11:15 [facility] (Rec: 06/21/18 11:52 [facility] [id number]) OT Gross Range of Motion Upper Extremity Range of Motion Assessment Bilaterally Impaired ROM Impairments AROM RUE 0-50, LUE 0-75 PROM RUE 0-80, LUE 0-85 OT Strength Upper Extremity Strength Assessment Bilaterally Impaired Comments Strength Comments BUE strength 3-/5 to 4-/5 form proximal to distal LUE, RUE 3 -/5 to 3+/5. OT- Coordination Assessment Comments Coordination Comments Increased time for diadochokinesia. OT Sensation Assessment Comments Summary Comments Intact for light touch BUE. Decreased proprioception left versus right. M9 OT- IP Assessment and Plan Start: 06/21/18 07:45 Freq: Status: Active Protocol: Document 06/22/18 09:29 [facility] (Rec: 06/22/18 09:38 [facility] [id number]) OT Summary Assessment and Plan Potential Rehabilitation Potential Fair Analytic Complexity at Evaluation Low Summary OT Impairments Strength Balance Coordination Functional Cognition Functional Mobility Self-Feeding Grooming Dressing Toileting Bathing Toilet Transfers Shower Transfers Progress Towards Goals Slow Progress due to Medical Issues Slow Progress due to Activity Tolerance Slow Progress due to Cognition Assessment Summary Pt able to transfer with MAX A x 1 and still will need extensive assist for all ADL's , prior per [facility] staff one person able to assist for all needs. Pt would benefit from skilled rehab to get stronger prior to going home or increased assist at [facility] as pt refusing to go to skilled rehab. Goals Self-Feeding Goal Standby Assistance Grooming Goal Standby Assistance Dressing Goal Moderate Assistance Toilet Transfer Goal Moderate Assistance Days to Meet Goals 7 Frequency of Treatment Frequency Of Treatment Once a Day Treatment Plan OT Treatment Plan ADL Training Functional Cognition Training Functional Mobility Therapeutic Exercises Patient/Family Education Discharge Planning Other Treatment Recommendations and Next BUE exercises and stretcing, Treatment Focus stand pivot [place] [facility] Discharge Recommendations OT Discharge Recommendations SNF Rehab Other Discharge Recommendations Pt refusing to go to SNF, therefore pending [facility] to take him back with increased assist.
[2018-06-22 10:07] LABS: Procalcitonin 0.06 ng/mL (<0.5)
--- NOTE | 2018-06-22 12:07 | PT.IPTN ---
Physical Therapy Treatment Note M2 PT-IP Current Condition Start: 06/20/18 15:19 Freq: NEEDED Status: Active Protocol: Document 06/20/18 14:43 AB (Rec: 06/20/18 15:35 AB [id number]) Physical Therapy Current Condition Current Condition Evaluation Date 06/20/18 Treatment Diagnosis possible stroke; difficulty in walking Onset Date 06/20/18 Precautions Other Precautions fall risk; bed/chair alarm M3 PT-IP Subjective Start: 06/20/18 15:19 Freq: NEEDED Status: Active Protocol: Document 06/22/18 12:06 GGD (Rec: 06/22/18 12:07 GGD [id number]) Subjective Physical Therapy Visit Type Type Patient Refusal Notes Pt refused to get out of bed, states he is tired. will see Amount of Assist Needed 2 Person Assist Mechanical Lift Discharge Recommendations PT Discharge Recommendations SNF Rehab
--- NOTE | 2018-06-22 12:59 | ST.IPDYTX ---
Care Team Visit Care Team Role Provider Type JAVIER Schmitt Primary Care Provider Non-Staff Specialty: Medical Address: [address] [place] [address], [phone] Fax: Email: Fareed Mccormick DO Emergency Provider Physician Specialty: Emergency Medicine Address: [address] [place], [address] Email: Marshall Vinson MD Admit Provider Physician Attending Provider Other Providers Specialty: Internal Medicine Address: [address] [place] [address], [id number] Email: TAMPING MACHINE OPERATOR Dysphagia Treatment TAMPING MACHINE OPERATOR Dysphagia Treatment Start: 06/20/18 14:38 Freq: Status: Active Protocol: Document 06/22/18 12:54 [facility] (Rec: 06/22/18 12:59 [facility] [id number]) Dysphagia Treatment Session Time Visit Start Time 09:23 Visit Stop Time 09:31 Total Visit Minutes 8 Setting Assessment Location Acute Care Visit Type Note Type Treatment Note Next Note Type Next Note Type Treatment Note Patient Information Identification Type Name ID Wristband Subjective Observations Patient sitting up in chair with nursing present to assist with breakfast. Patient had spilled food on himself and was a little upset about it. Nursing and OT reported to TAMPING MACHINE OPERATOR that he tolerated breakfast well. Patient still had breakfast tray when TAMPING MACHINE OPERATOR arrived. Treatment Liquids Trialed Thin Solids Trialed Puree Administration Type Self-Feeding Oral Strategies Upright at 90 degrees Double Swallow Lingual Sweep Alternate Liquids/Solids Pharyngeal Strategies Double Swallow Small Bites and Sips Alternate Liquids/Solids Treatment Activities Patient independent in trials. Able to tolerate small bites of puree eggs without difficulty. Min oral residue observed on lingual surface. Patient quickly stated that he was full and did not want to eat any more. He declined all attempts from TAMPING MACHINE OPERATOR for trials of fruit or drinks. He stated that he did not want any more. Tretment discontinued due to patient's request to stop. At this time, no diet change in recommended due to patient' s generalized weakness, inconsistent alertness, difficulty self-feeding, and overall delicate state of well -being. He has verbalized to TAMPING MACHINE OPERATOR that he is content with his current diet and does not wish to change it. Continue thin liquids and puree textures. 1:1 assist with meals. Assessment Patient Response to Treatment Fair Rehab Potential Fair Diet Recommendations Recommendations Continue Current Diet Liquids Order Thin Diet Order Dysphagia Blenderized Medication Recommendations As Tolerated Whole in Carrier Additional Dietary Needs 1:1 Supervision Encourage to Self-Feed Reminders to Use Strategies Aspiration Precautions Recommended Precautions Upright at 90 Degrees Alternate Liquids/Solids Frequent Rest Periods Small Bites/Sips Effortful Swallow Double Swallow Treatment Plan Placement Recommendation after Discharge Long-Term Facility Therapy Recommendations Ongoing dysphagia therapy to provide strengthening exercises and advance diet as tolerated. Dysphagia Goals Diet advancement as tolerated Independent eating
--- NOTE | 2018-06-22 14:22 | PT.IPTN ---
Current Diagnoses Cerebral infarction, unspecified (06/20/18) Physical Therapy Treatment Note M2 PT-IP Current Condition Start: 06/20/18 15:19 Freq: NEEDED Status: Active Protocol: Document 06/20/18 14:43 AB (Rec: 06/20/18 15:35 AB [id number]) Physical Therapy Current Condition Current Condition Evaluation Date 06/20/18 Treatment Diagnosis possible stroke; difficulty in walking Onset Date 06/20/18 Precautions Other Precautions fall risk; bed/chair alarm M3 PT-IP Subjective Start: 06/20/18 15:19 Freq: NEEDED Status: Active Protocol: Document 06/22/18 14:21 [facility] (Rec: 06/22/18 14:22 GGD [email or web address]) Subjective Physical Therapy Visit Type Type Patient Refusal Notes Pt refused states he is sleeping, will see in AM. y Recommendations To Nursing Amount of Assist Needed 2 Person Assist Mechanical Lift Discharge Recommendations PT Discharge Recommendations SNF Rehab
[2018-06-23 00:10] VITALS: O2SAT 97
[2018-06-23] MEDS: HEPARIN 5,000 UNIT/ML VIAL 5000 UNIT SUBCUT ×2 (03:30→10:14)
[2018-06-23] MEDS: PANTOPRAZOLE 20 MG TABLET PO (06:04)
[2018-06-23 06:32] VITALS: BP 141/68; PULSE 82; RESP 20; TEMP 36.6; O2SAT 96
[2018-06-23 06:49] LABS: BUN Creatinine Ratio 12.5 (6-22); Blood Urea Nitrogen 10 mg/dL (9-20); Calcium 8.6 mg/dL (8.4-10.2); Carbon Dioxide 25 mmol/L (22-32); Chloride 106 mmol/L (98-107); Estimated Glomerular Filt Rate > 60.0 mL/min (>60); Glucose 83 mg/dL (80-110); HEMOLYSIS < 15 (0-50); Potassium 3.9 mmol/L (3.4-5.1); Sodium 137 mmol/L (137-145)
[2018-06-23 07:35] VITALS: O2SAT 90; O2SAT 95; O2SAT 96
[2018-06-23 10:05] VITALS: BP 143/88; PULSE 96; RESP 20; TEMP 36.6; O2SAT 96
[2018-06-23] MEDS: MESALAMINE 400 MG CAP.DRTAB. 1200 MG PO (10:14)
[2018-06-23] MEDS: CEFTRIAXONE 2 GM/50 ML FROZ.PIGGY IV (10:14)
[2018-06-23 11:08] VITALS: O2SAT 96
--- NOTE | 2018-06-23 11:34 | PT.IPTN ---
Current Diagnoses Cerebral infarction, unspecified (06/20/18) Physical Therapy Treatment Note M2 PT-IP Current Condition Start: 06/20/18 15:19 Freq: NEEDED Status: Active Protocol: Document 06/20/18 14:43 AB (Rec: 06/20/18 15:35 AB [id number]) Physical Therapy Current Condition Current Condition Evaluation Date 06/20/18 Treatment Diagnosis possible stroke; difficulty in walking Onset Date 06/20/18 Precautions Other Precautions fall risk; bed/chair alarm M3 PT-IP Subjective Start: 06/20/18 15:19 Freq: NEEDED Status: Active Protocol: Document 06/23/18 10:52 DCW (Rec: 06/23/18 11:34 DCW [email or web address]) Subjective Physical Therapy Visit Type Type Treatment Note Visit Start Time 10:52 Visit Stop Time 11:22 Total Visit Minutes 30 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 M4 PT-IP Mobility and Gait Start: 06/20/18 15:19 Freq: NEEDED Status: Active Protocol: Document 06/23/18 10:52 DCW (Rec: 06/23/18 11:34 DCW [email or web address]) PT-Bed Mobility Assessment Supine to Sit Supine to Sit Moderate Assistance 1 Person Assistance Sit to Supine Sit to Supine Moderate Assistance 1 Person Assistance Scooting Scooting to Edge of Bed Moderate Assistance Scooting Up and Down in Bed Dependent PT-Transfer Assessment Sit to and From Stand Sit to and from Stand Moderate Assistance 1 Person Assistance Equipment Transfer Assistive Device Gait Belt Front Wheeled Walker Orthotic/Prosthetic Devices or Brace: No Transfers Transfer Destination Bed Chair Transfer Technique Stand Pivot Transfer Ability Level of Assist Moderate Assistance 1 Person Assistance Comments Mobility Comments Pt transfered from bed to chair, reported he was comfortable, and then as therapist was exiting the room , hit the call fofana to go back to bed. Pt was then transferred back to bed. M5 PT-IP Objective Assessments Start: 06/20/18 15:19 Freq: NEEDED Status: Active Protocol: Document 06/20/18 14:43 AB (Rec: 06/20/18 15:35 AB [id number]) Orientation Orientation/Cognition Level of Alertness Confusional State Orientation Name Safety Awareness Decreased Safety Awareness Memory Description Short Term Impaired Cloth Sander Impaired Gross Range of Motion Lower Extremity ROM Assessment Within Functional Limits Strength Lower Extremity Strength Assessment Bilaterally Impaired Hip 3+/5 Knee 4-/5 M6 PT-IP Treatment Start: 06/20/18 15:19 Freq: NEEDED Status: Active Protocol: Document 06/23/18 10:52 DCW (Rec: 06/23/18 11:34 DCW [email or web address]) Physical Therapy Treatment Exercises Exercises Ankle Pumps Other Treatments Other Treatment Performed LAQ M7 PT-IP Assessment and Plan Start: 06/20/18 15:19 Freq: NEEDED Status: Active Protocol: Document 06/23/18 10:52 DCW (Rec: 06/23/18 11:34 DCW [email or web address]) PT Summary Assessment and Plan Potential Rehabilitation Potential Fair Summary Impairments Pain ROM Strength Balance Coordination Sensation Tone Cognition Bed Mobility Transfers Gait Activity Tolerance Progress Towards Goals Slow Progress due to Medical Issues Slow Progress due to Activity Tolerance Assessment Summary Improved transfers today, able to stand-pivot to and from chair with Moderate assist/FWW . Pt would likely do well decreasing frequency QD. Goals Bed Mobility Goal Minimal Assistance Transfer Goal Minimal Assistance Front Wheeled Walker Gait Goal Minimal Assistance Front Wheel Walker Gait Distance 40 Days to Meet Goals 5 Frequency of Treatment Frequency Of Treatment Once a Day Treatment Plan Physical Therapy Treatment Plan Bed Mobility Training Transfer Training Gait Training Therapeutic Exercise Balance Retraining Post Op Education Discharge Planning Hot or Cold Pack Neuromuscular Re-ed Coordination Retraining Manual Therapy Other Recommendations and Next Treatment transfers, ambulation Focus Recommendations To Nursing Amount of Assist Needed 2 Person Assist Discharge Recommendations PT Discharge Recommendations SNF Rehab
--- NOTE | 2018-06-23 13:14 | PC.NURSE ---
Pt seen by and has been discharged back to [facility]. IV removed. Plan for wheelchair transfer at 1530. Pt pleased to be returning to his facility.
--- NOTE | 2018-06-23 14:48 | PM.DS.1 ---
History of Present Illness Chief complaint: Possible Stroke Narrative: Dameon Burt this is an 82-year-old male with a past medical history significant for atrial fibrillation with history of previous CVA who presented to [facility] from [facility] for symptoms concerning of new CVA. His last known normal was at midnight. It was reported that he hit his call light at approximately 03:00 and was unable to raise both arms, squeeze hands bilaterally, and balance/stand which is abnormal compared to baseline. Upon my examination, the patient is more alert and able to answer yes and no questions. He denies headache, visual changes such as blurry or double vision, however, he has a left-sided visual field deficit, chest pain, shortness of breath, abdominal pain, vomiting, dysuria, constipation or diarrhea. He does endorse chronic right shoulder pain, chronic subjective shortness of breath, and mild nausea. He is able to ambulate with a forward wheeled walker at baseline. Discharge Providers Date of admission: 06/20/18 05:14 Primary care physician: JAVIER Schmitt Consults: 06/20/18 05:05 Consult to Physician Routine Comment: Consulting Provider: Marshall Vinson Reason for consultation: admission 06/20/18 11:55 Consult to Occupational Therapy Evaluate & Treat Comment: Physician Instructions: Evaluate and treat Consult to Physical Therapy Evaluate & Treat Comment: Physician Instructions: Evaluate and Treat Consult to Speech Therapy Evaluate & Treat Comment: Physician Instructions: Evaluate and treat 06/20/18 12:52 Consult to Discharge Planning Routine Comment: Consult to Occupational Therapy Evaluate & Treat Comment: Physician Instructions: Evaluate and treat 06/20/18 12:53 Consult to Physical Therapy Evaluate & Treat Comment: Physician Instructions: Evaluate and Treat Discharge provider: Aleah Fall DO Discharge Date: 06/23/18 Summary Discharge Diagnosis: 1. Possible CVA versus TIA, present on admission. 2. Acute urinary tract infection, present on admission. Resolving. 3. Atrial fibrillation, present on admission. Stable. 4. Hyperlipidemia, present on admission. Presumed stable. 5. Polymyalgia Rheumatica, chronic. Presumed stable. 6. History of Crohn's disease, present on admission. Presume stable. Hospital Course: Dameon Burt this is an 82-year-old male with a past medical history significant for atrial fibrillation with history of previous CVA who presented to [facility] from [facility] for symptoms concerning of possible new CVA and now being treated for UTI. The patient has paperwork stating that he is DNR/DNI with comfort measures only and limited medical care. The patient had CT without contrast of brain which was negative for acute intracranial abnormalities. He was evaluated for tPA and felt to be a poor candidate, as well as, possible device therapy for which he declined. The patient has atrial fibrillation but has had several falls over the last several months and is a poor candidate for anticoagulation. Therefore, the family as well as the patient have decided that aspirin is the only preventative measure that they are willing to continue. Aspirin was not administered while he was hospitalized due to air in ordering but the patient was discharged with a prescription of enteric-coated aspirin 81 mg daily. The patient was found to have an E coli UTI sensitive to cephalosporins and was started on ceftriaxone 2 g daily and IV fluids. He has received this for 3 days. He was discharged back to his assisted living facility on cephalexin 500 mg b.i.d. for 4 more days to complete a 7 day course. His diltiazem was held due to concern for stroke and during his hospitalization his heart rate has remained stable in the 70-90 range. Discussed discontinuation of diltiazem with Anna Marie hernandez nurse at [facility] and instructed that if he were to go back into atrial fibrillation with uncontrolled rate the diltiazem may be restarted and follow up with his PCP. In regard to his mentation, it has slowly improved throughout the course of treatment for his UTI. It is unclear whether he had a true CVA or if his symptoms were soley site safety representative of a UTI. The patient is discharged back to [facility] near his baseline overall function. Exam Vital Signs (past 8 hours): - 06/23/18 07:35 06/23/18 10:05 06/23/18 11:08 Temperature 97.9 F Pulse Rate 96 H Respiratory Rate 20 Blood Pressure 143/88 H Pulse Oximetry 95 96 96 Oxygen Delivery Method Room Air Oxygen Flow Rate 0 Narrative Exam Narrative: General: Elderly gentleman lying in bed comfortably and in non acute distress, well-developed, well-nourished, appropriately interactive HEENT: Normocephalic, atraumatic. External ears without defect. Pupils equal, round, and reactive to light. Anicteric sclerae, moist conjunctivae, and no lid lag. Dry mucosa. Neck: Supple with full range of motion. No jugular venous distension. No bruits. No lymphadenopathy or thyromegaly. Cardiovascular: Irregularly irregular without murmurs, rubs, or gallops appreciated. Pulmonary: Clear to auscultation bilaterally without crackles, wheezes, or rhonchi. Normal respiratory effort with no use of accessory muscles. Abdomen: Bowel tones present. Soft, non-tender, non-distended. No hepatosplenomegaly or masses appreciated. Extremities: No clubbing, cyanosis, or edema. Skin: Normal temperature, poor turgor, and texture; no rash, ulcers, or subcutaneous nodules appreciated. Neurological: Awake and alert, oriented to person and place, slight slurred speech and mild expressive aphasia, cognition waxes and wanes. Objective Labs Result Diagrams: 06/22/18 08:31 06/23/18 05:35 Labs: Laboratory Results - last 24 hr 06/23/18 05:35 Sodium 137 Potassium 3.9 Chloride 106 Carbon Dioxide 25 BUN 10 Creatinine 0.80 Estimated GFR > 60.0 BUN/Creatinine Ratio 12.5 Glucose 83 Calcium 8.6 Discharge Plan Discharge Plan Patient Disposition: Assisted Living Other facility: [facility] Under care of provider: Dr. Pillai Transportation: Facility vehicle Discharge comment: You have been discharged with an antibiotic, Keflex 500 mg twice daily, to treat a UTI or bladder infection. The receiving facility has agreed to accept transfer and provide medical treatment.: Yes Discharge Med Rec/Prescriptions Prescriptions: New cephalexin [Keflex] 500 mg capsule 500 mg PO BID 4 Days Qty: 8 RF: 0 aspirin 81 mg tablet,delayed release (DR/EC) 81 mg PO DAILY Qty: 30 RF: 0 Continue multivitamin Tablet 1 tab PO DAILY RF: 0 acetaminophen 325 mg Tablet 650 mg PO Q4H PRN (Reason: Pain, Mild) RF: 0 loperamide 2 mg Capsule 2 mg PO Q6H PRN (Reason: Diarrhea) RF: 0 cyanocobalamin (vitamin B-12) [Vitamin B-12] 1,000 mcg Tablet 1,000 mcg PO DAILY RF: 0 acetaminophen 500 mg Tablet 500 mg PO QID PRN (Reason: Pain, Mild) RF: 0 ascorbic acid (vitamin C) [Vitamin C] 500 mg Tablet 500 mg PO BID RF: 0 Lactobacillus acidophilus [Acidophilus] Capsule 2 cap PO BID RF: 0 ondansetron 4 mg Tablet,Disintegrating 4 mg PO Q4H PRN (Reason: Nausea) RF: 0 sodium chloride [Saline Mist] 0.65 % Aerosol,[place] 1 spray Intranasal QID RF: 0 psyllium seed (sugar) [Reguloid] Powder 1 scoop/day PO DAILY RF: 0 mesalamine 1.2 gram tablet,delayed release (DR/EC) 2 tab PO DAILY RF: 0 diclofenac sodium 1 % gel 2 g Topical TID RF: 0 metoprolol succinate 25 mg tablet extended release 24 hr 1 tab PO DAILY RF: 0 pantoprazole 20 mg Tablet,Delayed Release (Dr/Ec) 20 mg PO DAILY RF: 0 Discontinued diltiazem HCl [Cartia XT] 120 mg Capsule,Extended Release 24hr 120 mg PO DAILY RF: 0 Follow up/Referrals: Rolanda Aparicio ARNP [Primary Care Provider] - Discharge Orders: Discharge (Order); Ordered 06/23/18 Ordered By: Aleah Fall Discharge Health Status Brief summary of current health status: The patient's mental cognition has returned close to his baseline. Multidrug resistant organism: No MDRO Provider Discharge Instructions Diet: Diet as Tolerated, Low-sodium and Low-cholesterol Liquid consistency: Normal/Thin Food texture: Blenderized or pureed Diet comment: Upright at 90, alternate liquids and solids, frequent rest, small bites Activity: Activity as tolerated with FWW Skin/Wound/Dressing Care Report to your healthcare provider any signs of infection, such as:: chills, fever Visit Report/Discharge Packet Instructions: DI for Stroke-Ischemic, DI for Urinary Tract Infection (UTI) Discharge Data Primary Care Provider: Rolanda Aparicio Attending Provider: Marshall Vinson Admit Date/Time: 06/20/18 05:14 Quality VTE Deep Vein Thrombosis/Pulmonary Embolism Present on Admission: No
--- NOTE | 2018-06-23 15:14 | CM.DPC ---
DCP/continued: Reviewed chart. Patient is a 82yr old admitted to [facility] from [facility] with stroke like symptoms. Spoke with Dr. Fall this AM and she reports that patient okay to return to [facility] today. Placed call to Anna Marie # [phone] re: patient's return to [facility]. Anna Marie reports that she could not make it to [facility] yesterday to do bedside assessment but will today. Jaqui came to [facility] completed assessment and patient okay to return. ISOLATION WASHER met with patient and joey/Josselin at bedside. All aware and agreeable to plan for patient to return to [facility]. Family does not wish for patient to go to [facility]. Family requesting for private pay caregivers at [facility] if needed in the future. Provided resource book. P: RAL today. Patient scheduled to be picked up today by [facility] at approximately 3:30pm. RN updated. Important Message from [employer] signed by joey. VALENCIA Green
== END 2018-06-23 15:30 | DRG 65 ==
LOC: ED 04:18 → AC 06:04
PROVIDERS: Internal Medicine; Admitting Provider Internal Medicine; Emergency Provider Emergency Medicine; PCP Nurse Practitioner Family; Visit Provider Internal Medicine
DX: I63.9 Cerebral infarction, unspecified (principal); N39.0 Urinary tract infection, site not specified; K50.90 Crohn's disease, unspecified, without complications; I48.91 Unspecified atrial fibrillation; M35.3 Polymyalgia rheumatica; I10 Essential (primary) hypertension; R47.81 Slurred speech; I25.10 Atherosclerotic heart disease of native coronary artery without angina pectoris; E78.5 Hyperlipidemia, unspecified; M06.9 Rheumatoid arthritis, unspecified; Z87.891 Personal history of nicotine dependence
CPT/HCPCS: 36415; 70450; 80048; 80053; 80061; 81001; 83735; 84145; 85025; 85610; 85730; 87077; 87086; 92526; 92610; 93005; 94760; 96374; 97110; 97162; 97165; 97530; 99282; 99285; 99291; J0696; J1644; J2405

== ENCOUNTER → 2018-07-03 07:39 | Outpatient (REF) | payer MEDICARE, SELFPAY ==
[2018-06-20 05:42] VITALS: BMI 23.1
[2018-07-03 08:20] LABS: Add Manual Diff / Slide Review NO; Eosinophils Percent Auto 3.1 % (2-4); Hemoglobin 12.3 g/dL (13.5-17.5); Mean Corpuscular HGB Conc 32.5 % (30-36); Mean Corpuscular Hemoglobin 29.8 PG (26-34); Mean Corpuscular Volume 91.6 fL (80-100); Monocytes Percent Auto 14.7 % (3-14); Neutrophils Absolute Auto 8100 /uL (1500-7000); Neutrophils Percent Auto 68.2 % (50-75); Platelet Count 335 X10^3/uL (150-400); Red Blood Cell Count 4.15 X10^6/uL (4.5-5.9); Red Cell Distribution Width 15.2 % (11.6-14.8); White Blood Cell Count 11.9 X10^3/uL (4.5-11.0)
[2018-07-03 08:25] LABS: Blood Urea Nitrogen 14 mg/dL (9-20); Calcium 8.7 mg/dL (8.4-10.2); Carbon Dioxide 28 mmol/L (22-32); Chloride 104 mmol/L (98-107); Estimated Glomerular Filt Rate > 60.0 mL/min (>60); Glucose 76 mg/dL (80-110); HEMOLYSIS 18 (0-50); Sodium 138 mmol/L (137-145)
[2018-07-03 09:11] LABS: Vitamin B12 > 1000 pg/mL (239-931)
[2018-07-03 09:13] LABS: Thyroid Stimulating Hormone 2.45 uIU/mL (0.47-4.68)
== END ==
LOC: LAB 07:39
PROVIDERS: PCP Nurse Practitioner Family; Visit Provider Nurse Practitioner Family
DX: R53.83 Other fatigue (principal); N39.0 Urinary tract infection, site not specified; R29.818 Other symptoms and signs involving the nervous system
CPT/HCPCS: 36415; 80048; 82607; 84443; 85025

== ENCOUNTER → 2018-08-15 09:20 | Outpatient (CLI) | payer MEDICARE, SELFPAY ==
[2018-06-20 05:42] VITALS: BMI 23.1
== END ==
PROVIDERS: PCP Nurse Practitioner Family; Visit Provider Nurse Practitioner Family
DX: Z79.899 Other long term (current) drug therapy (principal); R00.1 Bradycardia, unspecified
CPT/HCPCS: 93005

== ENCOUNTER → 2018-08-26 09:10 | Outpatient (REF) | payer MEDICARE, SELFPAY ==
[2018-06-20 05:42] VITALS: BMI 23.1
[2018-08-26 10:09] LABS: Add Manual Diff / Slide Review NO; Basophils Absolute Auto 100 /uL (0-100); Basophils Percent Auto 0.5 % (0-2); Eosinophils Absolute Auto 300 /uL (0-450); Eosinophils Percent Auto 1.9 % (2-4); Hematocrit 39.2 % (41-53); Hemoglobin 12.8 g/dL (13.5-17.5); Lymphocytes Absolute Auto 1700 /uL (1100-4500); Mean Corpuscular HGB Conc 32.8 % (30-36); Mean Corpuscular Hemoglobin 29.9 PG (26-34); Mean Corpuscular Volume 91.1 fL (80-100); Monocytes Absolute Auto 1800 /uL (0-900); Neutrophils Absolute Auto 10200 /uL (1500-7000); Neutrophils Percent Auto 72.6 % (50-75); Platelet Count 331 X10^3/uL (150-400); Red Cell Distribution Width 16.1 % (11.6-14.8); White Blood Cell Count 14.1 X10^3/uL (4.5-11.0)
[2018-08-26 10:19] LABS: BUN Creatinine Ratio 21.3 (6-22); Blood Urea Nitrogen 17 mg/dL (9-20); Calcium 8.5 mg/dL (8.4-10.2); Carbon Dioxide 27 mmol/L (22-32); Chloride 103 mmol/L (98-107); Estimated Glomerular Filt Rate > 60.0 mL/min (>60); Glucose 77 mg/dL (80-110); HEMOLYSIS < 15 (0-50); Potassium 4.2 mmol/L (3.4-5.1); Sodium 137 mmol/L (137-145)
== END ==
LOC: LAB 09:10
PROVIDERS: PCP Nurse Practitioner Family; Visit Provider Internal Medicine
DX: K52.9 Noninfective gastroenteritis and colitis, unspecified (principal); K92.2 Gastrointestinal hemorrhage, unspecified
CPT/HCPCS: 36415; 80048; 85025

== ENCOUNTER 2018-09-06 20:10 | Emergency (ER) | payer MEDICARE, SELFPAY ==
[2018-06-20 05:42] VITALS: BMI 23.1
[2018-09-06 20:13] VITALS: PULSE 115; RESP 17; TEMP 36.9; O2SAT 96
--- NOTE | 2018-09-06 20:14 | ED.SOB ---
HPI - SOB/Dyspnea General Chief Complaint: Shortness of Breath/Dyspnea Stated Complaint: SOB Time Seen by Provider: 09/06/18 20:13 Source: patient and EMS Mode of arrival: EMS Limitations: no limitations History of Present Illness patient is an 82-year-old male sent over from his living facility by EMS after his reported that he was reporting that he was short of breath. Here in the emergency department the patient did not report any shortness of breath. EMS stated that he told them that he was not short of breath. He was not hypoxic by EMS nor here in the ER. Patient had no complaints. Related Data Home Medications Medication Instructions Recorded Confirmed Lactobacillus acidophilus 2 cap PO BID 12/14/17 06/20/18 [Acidophilus] acetaminophen 500 mg PO QID PRN 12/14/17 06/20/18 acetaminophen 650 mg PO Q4H PRN 12/14/17 06/20/18 ascorbic acid (vitamin C) [Vitamin 500 mg PO BID 12/14/17 06/20/18 C] cyanocobalamin (vitamin B-12) 1,000 mcg PO DAILY 12/14/17 06/20/18 [Vitamin B-12] diclofenac sodium 2 g TOPICAL TID 12/14/17 06/20/18 loperamide 2 mg PO Q6H PRN 12/14/17 06/20/18 mesalamine 2 tab PO DAILY 12/14/17 06/20/18 multivitamin 1 tab PO DAILY 12/14/17 06/20/18 ondansetron 4 mg PO Q4H PRN 12/14/17 06/20/18 psyllium seed (sugar) [Reguloid] 1 scoop/day PO DAILY 12/14/17 06/20/18 sodium chloride [Saline Mist] 1 spray INTRANASAL QID 12/14/17 06/20/18 metoprolol succinate 1 tab PO DAILY 06/20/18 06/20/18 pantoprazole 20 mg PO DAILY 06/20/18 06/20/18 Previous Rx's Medication Instructions Recorded aspirin 81 mg PO DAILY #30 tab 06/23/18 Allergies Allergy/AdvReac Type Severity Reaction Status Date / Time No Known Drug Allergies Allergy Verified 04/01/18 15:53 Review of Systems Constitutional Denies fever(s) Cardiovascular Denies chest pain and Denies dyspnea Respiratory Denies dyspnea Gastrointestinal Gastrointestinal: Denies abdominal pain PFSH Medical History CHF (congestive heart failure) (Acute) Cataract (Acute) Colon cancer (Acute) Coronary artery disease (Acute) Hyperlipidemia (Acute) Hypertension (Acute) Polymyalgia rheumatica (Acute) Surgical History H/O total hip arthroplasty (Acute) History of colon resection (Acute) History of tonsillectomy (Acute) Family History Mother No problems noted. Father No problems noted. Sister No problems noted. Social History household members: spouse housing: assisted living facility Smoking Status: Former smoker alcohol intake: former Social History household members: spouse housing: assisted living facility Smoking Status: Former smoker alcohol intake: former Exam Initial Vital Signs Initial Vital Signs: Vital Signs Temperature 98.4 F 09/06/18 20:13 Pulse Rate 115 H 09/06/18 20:13 Respiratory Rate 17 09/06/18 20:13 Pulse Oximetry 96 09/06/18 20:13 Const General: No acute distress Orientation: alert, awake, oriented to person and oriented to place Resp Effort & Inspection: normal respiratory effort Auscultation: clear to auscultation bilaterally Cardio Rate: tachycardic Pulses: radial pulses present Neuro General: alert and awake Extrem General: normal to inspection and capillary refill normal Psych Appearance: grossly normal and well kempt Course Vital Signs - 8 hr 09/06/18 21:45 09/06/18 22:41 Pulse Rate 81 85 Respiratory Rate 22 22 Blood Pressure [Left Arm] 144/80 H Pulse Oximetry 96 97 MDM - SOB/Dyspnea Lab Data Attestation: I reviewed the patient's lab results. Lab Results 09/06/18 Range/Units 20:15 Influenza A & B (PCR) Negative (Negative) Imaging Data Chest x-ray: Radiologist's impression: Patient: Dameon Burt JMR#: [id number] : 1936Acct:[id number] Age/Sex: 82 / MDate of Service: 09/06/18 Loc: ED Accession Number: [id number] Procedure: XR chest 1V Ordering Provider: Fareed Mccormick D.O. PROCEDURE: XR CHEST 1V INDICATIONS: shortness of breath TECHNIQUE: One view of the chest was acquired. COMPARISON: [facility], CR, XR CHEST 2V, 04/10/2018, 9:31. FINDINGS: Surgical changes and devices: None. Lungs and pleura: Mild interstitial pulmonary edema. No pleural fluid. Mediastinum: Mediastinal contours appear normal. Heart size is normal. Bones and chest wall: No suspicious bony lesions. Overlying soft tissues appear unremarkable. IMPRESSION: Mild congestive heart failure. Dictated by: Shoaib Stein M.D. on 09/06/2018 at 21:19 Approved by: Shoaib Stein M.D. on 09/06/2018 at 21:19 ECG Data Attestation: I personally reviewed and interpreted this ECG as follows: Prior ECG tracings: not available for review Interpretation: Sinus tachycardia ventricular rate of 110 left axis deviation Normal QRS Normal QTC Wandering baseline secondary to the patient's underlying tremor MDM Narrative Medical decision making narrative: Patient's flu is negative, chest x-ray is unremarkable. Patient not hypoxic here in the ER. Was slightly tachypneic. Had a difficult time initially obtaining a oxygen saturation however when he placed him on a portable monitor with a sensor on his ER his oxygen saturations were in the mid to high 90s with a heart rate in the 80s. this did correspond to checking a radial pulse and also listening with the stethoscope. Patient had no complaints. He stated that he was not short of breath and had never been short of breath. Patient states he would like to go back home. Hold on further workup for now. He was informed he can return to the emergency department at any point if his symptoms worsen. He expressed understanding and agreement this plan. Discharge Plan Departure Patient Disposition: Home Clinical Impression: Shortness of breath Discharge Date/Time: 09/06/18 23:22 Interventions: ED Discharge Assessment Last Done: 09/06/18 23:23 Activity Restrictions/Additional Instructions: Your chest x-ray was negative for pneumonia. Your flu test was negative. Your oxygen saturations were normal on room air. I recommend that his primary care doctor be contacted to let him/her know that he was here in the ER. He can return at any time for new or worsening symptoms Prescriptions: No Action multivitamin Tablet 1 tab PO DAILY RF: 0 acetaminophen 325 mg Tablet 650 mg PO Q4H PRN (Reason: Pain, Mild) RF: 0 loperamide 2 mg Capsule 2 mg PO Q6H PRN (Reason: Diarrhea) RF: 0 cyanocobalamin (vitamin B-12) [Vitamin B-12] 1,000 mcg Tablet 1,000 mcg PO DAILY RF: 0 acetaminophen 500 mg Tablet 500 mg PO QID PRN (Reason: Pain, Mild) RF: 0 ascorbic acid (vitamin C) [Vitamin C] 500 mg Tablet 500 mg PO BID RF: 0 Lactobacillus acidophilus [Acidophilus] Capsule 2 cap PO BID RF: 0 ondansetron 4 mg Tablet,Disintegrating 4 mg PO Q4H PRN (Reason: Nausea) RF: 0 sodium chloride [Saline Mist] 0.65 % Aerosol,[place] 1 spray Intranasal QID RF: 0 psyllium seed (sugar) [Reguloid] Powder 1 scoop/day PO DAILY RF: 0 mesalamine 1.2 gram tablet,delayed release (DR/EC) 2 tab PO DAILY RF: 0 diclofenac sodium 1 % gel 2 g Topical TID RF: 0 metoprolol succinate 25 mg tablet extended release 24 hr 1 tab PO DAILY RF: 0 pantoprazole 20 mg Tablet,Delayed Release (Dr/Ec) 20 mg PO DAILY RF: 0 aspirin 81 mg tablet,delayed release (DR/EC) 81 mg PO DAILY Qty: 30 RF: 0 Referrals: Rolanda Aparicio ARNP [Primary Care Provider] -
[2018-09-06 20:16] VITALS: BP 132/94
[2018-09-06 20:38] LABS: Influenza A and B by PCR Rapid Negative (Negative)
[2018-09-06 21:45] VITALS: BP 144/80; PULSE 81; RESP 22; O2SAT 96
[2018-09-06 22:41] VITALS: PULSE 85; RESP 22; O2SAT 97
== END 2018-09-06 23:22 | disposition home or self-care (01) ==
PROVIDERS: Emergency Provider Emergency Medicine; PCP Nurse Practitioner Family
DX: R06.02 Shortness of breath (principal)
CPT/HCPCS: 71045; 87400; 93005; 93010; 99283; 99284